=== PATIENT | male | born 1950 | race Caucasian/White ===

== ENCOUNTER 2017-09-18 20:54 | Emergency (ER) | payer MEDICARE, SELFPAY ==
[2017-09-18 20:54] VITALS: BP 122/58; PULSE 71; RESP 20; TEMP 36.9; O2SAT 92; BMI 20.7
--- NOTE | 2017-09-18 22:21 | ED.VISSUMM ---
- ER Visit Summary Date of Service: 09/18/17 Chief Complaint: Fall 3 days ago History of Present Illness: The patient is a 66 M mechanical fall 3 days ago. Tripped over his oxygen wire. He states he uses only as needed. History of COPD. States he hit the wall. No head injuries or loss of consciousness. He is on now Xarelto for history of atrial fibrillation. This was transitioned over a few days prior to his fall. Previous on Coumadin. Pain to his left back. No urinary symptoms. States the bruising to left arm. However full range of motion. Pain in his lower hip backside, however able to ambulate. Patient states family member here in the department, decided to check in to be evaluated. No distal paresthesias. No loss of bowel or bladder control. Physical Examination: General: Alert and oriented ?3, no acute distress HEENT: Normocephalic, atraumatic. Moist mucosa membranes Neck: supple, nontender. Cardiovascular: Regular rate and rhythm, no murmurs Respiratory: Normal breath sounds, symmetric, no distress Abdomen: Soft, nontender, nondistended Back: No midline tenderness, there is ecchymosis left flank CVA region, mild tender to palpation. Extremities: Nontender, no edema, pulses intact ?4. There is ecchymosis left elbow, however full range of motion. Able to stand and ambulate with no difficulties. Neuro: no focal neurological deficits. Test Results: WBC 11, hemoglobin 13.3. Creatinine 1.05. Urine 100 leukocytes, blood 10, 25-50 hyaline casts. Negative nitrites or white blood cells. CT abdomen pelvis IV contrast no trauma to organs. 5 cm mass left lobe of the liver. Emergency Department Course and Treatment: Patient presents 3 days after injury. He is on Xarelto. He has ecchymosis to the left flank. Discuss potential organ injury, workup initiated. Labs stable urine did note mild blood. CT scan negative for any trauma injuries. Incidental findings 5 cm mass left liver, discussed with patient and significant other findings that would need outpatient follow-up. Also findings of thickening around the bladder, he has no urine symptoms. He does have oxycodone at home for pain control. He is given dose in the ED. He is discharged with outpatient follow-up. Treatment Plan: [] Disposition: Discharge Impression: 1. Flank contusion 2. Liver mass 5 cm 3. Hematuria 4. Left arm contusion This note was generated with [employer] dictation software. It may contain incorrect words, spelling, and punctuation that were not noted in review of the chart prior to signing ED Disposition - Plan for ED Patient: Disposition: Home or Assisted Living Chief Complaint: Fall Diagnosis: Contusion, flank, Contusion of left arm, Hematuria, Liver mass, left lobe Instructions: ED Contusion Back, ED Hematuria Referrals: Humberto Ware MD [Primary Care Provider] - 1 Day Additional Instructions: 5 cm left liver mass. Will need follow-up by your doctor for outpatient workup. No intra-abdominal injury from her fall from CT scan.
[2017-09-18] MEDS: 0.9% Normal Saline 1,000 ML 150 ML IV (22:46)
[2017-09-18] MEDS: oxyCODONE 5 MG Tablet PO (22:47)
[2017-09-18 23:01] LABS: Absolute Lymphocyte Count 2.75 X10^3/ul (0.83-4.51); Absolute Neutrophil Count 6.7 X10^3/uL (2.0-7.7); Basophil# 0.08 X10^3/uL; Basophil% 0.7 % (0-1); Eosinophil# 0.63 X10^3/uL; Eosinophils% 5.7 % (0-5); Hematocrit 40.9 % (40-54); Hemoglobin 13.3 g/dl (13.0-16.5); Lymphocyte # 2.75 X10^3/ul (4.0); Lymphocyte % 24.7 % (19-41); Mean Corp Hgb Conc 32.5 g/gl (32-36); Mean Corpuscular Hgb 28.9 pg (27.0-32.0); Mean Corpuscular Volume 88.7 fL (80-94); Mean Platelet Vol. 9.2 fl (6.2-12.0); Monocyte# 0.94 X10^3/uL; Monocyte% 8.4 % (0-10); Neutrophil # 6.69 X10^3/uL (2.7-7.7); Neutrophil % 60.1 % (47-70); Platelet Count 118 K/mm3 (150-450); RBC Distribution Width CV 15.6 % (11.6-14.6); RBC Distribution Width SD 50.2 fl (35.1-43.9); Red Blood Count 4.61 M/mm3 (4.6-6.2); White Blood Count 11.1 K/mm3 (4.4-11.0)
[2017-09-18 23:02] LABS: POSITIVE COUNT NO; POSITIVE DIFFERENTIAL NO; POSITIVE MORPHOLOGY NO
[2017-09-18 23:04] LABS: Anion Gap 4 (5-15); BUN 12 mg/dL (7-18); BUN/Creat Ratio 11.4 RATIO (10-20); Calcium,Total 9.3 mg/dL (8.5-10.1); Chloride 106 mmol/L (98-107); Creatinine, Serum 1.05 mg/dL (0.70-1.30); EST Glomerular Filtration Rate 75 mL/min (>60); Est Glom Filt Rate - Afr Amer 90 mL/min (>60); Estimated Creatinine Clearance 61.32 ml/min; Glucose 83 mg/dL (74-106); Potassium 4.3 mmol/L (3.5-5.1); Sodium Level 140 mmol/L (136-145)
[2017-09-18 23:16] LABS: International Normalized Ratio 1.2; Partial Thromboplast Time 32.1 Seconds (24.1-36.2); Prothrombin Time (Protime)PT. 15.5 SECONDS (11.7-14.9)
[2017-09-19 00:45] LABS: Bacteria 0 SEEN /hpf (None Seen); Mucous, Urine 0 SEEN /hpf (<or=2+); Red Blood Cells-Urine 0 SEEN /hpf (0-5); Squamous Epithelial Cells - UA 0 SEEN /hpf (0-5)
[2017-09-19 00:47] LABS: Color, Urine Yellow (Yellow); Glucose, Dipstick Normal (Normal); Ketone-Dipstick Negative (Negative); Leukocyte Esterase-Dipstick 100 /ul (Negative); Nitrite-Dipstick Negative (Negative); Occult Blood-Urine 10 /ul (Negative); Protein-Dipstick 15 mg/dl (Negative); Urine Clarity Clear (Clear); Urine Urobilinogen 1 mg/dl (Normal)
[2017-09-19 00:48] LABS: Urine Bilirubin Dipstick 1 mg/dL (Negative)
[2017-09-19 00:53] VITALS: BP 115/71; PULSE 71; RESP 16; O2SAT 93
[2017-09-19 00:53] LABS: Hyaline Cast 25-50 SEEN /lpf (0-5); White Blood Cells 0-5 SEEN /hpf (0-5)
== END 2017-09-19 01:54 | disposition home or self-care (01) ==
PROVIDERS: Emergency Provider Emergency Medicine; Family Provider Family Medicine; PCP Family Medicine
DX: S30.1XXA Contusion of abdominal wall, initial encounter (principal); S40.022A Contusion of left upper arm, initial encounter; W18.09XA Striking against other object with subsequent fall, initial encounter; Y93.9 Activity, unspecified; Y92.89 Other specified places as the place of occurrence of the external cause; Y99.9 Unspecified external cause status; J44.9 Chronic obstructive pulmonary disease, unspecified; I48.91 Unspecified atrial fibrillation; Z79.01 Long term (current) use of anticoagulants; R16.0 Hepatomegaly, not elsewhere classified; R31.9 Hematuria, unspecified; E11.9 Type 2 diabetes mellitus without complications; I10 Essential (primary) hypertension; Z72.0 Tobacco use
CPT/HCPCS: 74177; 80048; 81001; 85025; 85610; 85730; 96360; 96361; 99285; J7030; Q9967

== ENCOUNTER 2017-12-01 12:21 | Emergency (ER) | payer MEDICARE, SELFPAY ==
[2017-12-01 12:23] VITALS: BP 125/67; PULSE 94; RESP 18; TEMP 36.7; O2SAT 95; BMI 21.8
--- NOTE | 2017-12-01 12:39 | CT_ITS ---
STUDY: CTA OF THE ABDOMINAL AORTA AND BILATERAL LOWER EXTREMITIES REASON FOR EXAM: Male, 67 years old. Chemotherapy device placed into the right groin. The patient now presents with pain and swelling of the right lower extremity. RADIATION DOSAGE (If Supplied By Facility): CTDIvol = ( 8.08 ) mGy, DLP = ( 1441.88 ) mGycm TECHNIQUE: Axial CT angiography multi-detector data acquisition was obtained from the to the following intravenous administration of 100mL ml of Isovue 370 contrast. Axial images and MIP images were reconstructed from the axial data set. Post-processing of the angiographic images was performed, with multiplanar reformation and 3D reconstruction. Individualized dose optimization techniques were used for this CT. TECHNICAL QUALITY: Good COMPARISON: None. Descriptors of Narrowing: None (0%) Mild (< 50%) Moderate (50-70%) Severe (70-90%) Subtotal/Total Occlusion (90-100%) Non-Evaluable (technically non-diagnostic FINDINGS: Diffuse fatty infiltration of the liver. There is a 4.5 cm x 2.5 cm hypodense nodule in the anterior aspect of the right lobe of the liver suggestive of metastatic disease. There is also evidence of an inhomogeneous 4.6 cm x 4.9 cm solid mass containing some gas in it in the left lobe of the liver. This may represent post embolic changes. Findings are in keeping with hepatic metastasis. There is a 2.1 cm x 2.7 cm hypodense rounded soft tissue mass with calcification along the left para-aortic region suggestive of a necrotic lymph node. Small right renal cyst. There is evidence of increase soft tissue density in the region of the right groin involving the subcutaneous tissue as well as the soft tissue planes surrounding the right common femoral artery and common femoral vein. There is evidence of contrast extravasation from the anterior aspect of the right common femoral artery. This is incomplete with the patient's history of recent arterial catheterization with continued leakage and post procedure hematoma. A small amount of air is seen within the urinary bladder most likely is related to prior catheterization. Prostatic calcification. Abdominal aorta: Atherosclerotic calcification. Mild degree of mural thrombus of the abdominal aorta. Celiac and superior mesenteric arteries: No demonstrated narrowing. Inferior mesenteric artery: No demonstrated narrowing. Right renal artery(arteries): No demonstrated narrowing. Left renal artery(arteries): No demonstrated narrowing. Right common iliac artery: No demonstrated narrowing. Right external iliac artery: No demonstrated narrowing. Right internal iliac artery: No demonstrated narrowing. Left common iliac artery: No demonstrated narrowing. Left external iliac artery: No demonstrated narrowing. Left internal iliac artery: No demonstrated narrowing. CT/CTA Abd w/Runoff W/WO Contrast IMPRESSION: Findings suggestive of extravasation of contrast from the right common femoral artery with a surrounding soft tissue density in comparison with the postcatheterization hematoma and there continued arterial leak. Electronically Signed: Nelson Fournier MD at 15:02 EDT Tel [phone], Service support ,
[2017-12-01] MEDS: 0.9% Normal Saline 1,000 ML 1000 ML IV (12:54)
[2017-12-01 13:06] LABS: Absolute Lymphocyte Count 1.21 X10^3/ul (0.83-4.51); Absolute Neutrophil Count 15.4 X10^3/uL (2.0-7.7); Basophil# 0.05 X10^3/uL; Basophil% 0.3 % (0-1); Differential Indicated SCAN CRITERIA MET; Eosinophil# 0.03 X10^3/uL; Eosinophils% 0.2 % (0-5); Hematocrit 39.5 % (40-54); Hemoglobin 12.9 g/dl (13.0-16.5); Lymphocyte # 1.21 X10^3/ul (4.0); Lymphocyte % 6.5 % (19-41); Mean Corp Hgb Conc 32.7 g/gl (32-36); Mean Corpuscular Hgb 29.1 pg (27.0-32.0); Mean Platelet Vol. 9.2 fl (6.2-12.0); Monocyte# 1.91 X10^3/uL; Monocyte% 10.3 % (0-10); Neutrophil # 15.38 X10^3/uL (2.7-7.7); Neutrophil % 82.4 % (47-70); POSITIVE COUNT NO; POSITIVE DIFFERENTIAL YES; POSITIVE MORPHOLOGY NO; Platelet Count 172 K/mm3 (150-450); RBC Distribution Width CV 13.2 % (11.6-14.6); RBC Distribution Width SD 42.5 fl (35.1-43.9); Red Blood Count 4.44 M/mm3 (4.6-6.2); White Blood Count 18.6 K/mm3 (4.4-11.0)
[2017-12-01 13:15] LABS: ALB/GLOB Ratio 0.7 RATIO (0.9-2.4); AST(SGOT) 317 U/L (15-37); Alanine Aminotransfer ALT/SGPT 541 U/L (16-61); Alkaline Phosphatase 156 U/L (45-117); Anion Gap 5 (5-15); BUN 16 mg/dL (7-18); BUN/Creat Ratio 19.8 RATIO (10-20); Calcium,Total 9.2 mg/dL (8.5-10.1); Chloride 96 mmol/L (98-107); Creatinine, Serum 0.81 mg/dL (0.70-1.30); EST Glomerular Filtration Rate 101 mL/min (>60); Est Glom Filt Rate - Afr Amer 122 mL/min (>60); Estimated Creatinine Clearance 82.88 ml/min; Globulin 4.3 g/dL (2.2-4.2); Glucose 126 mg/dL (74-106); Protein, Total 7.3 g/dL (6.4-8.2); Sodium Level 137 mmol/L (136-145)
[2017-12-01 13:27] LABS: Platelet Estimate ADEQUATE (ADEQ); Red Cell Morphology NORM C+C NORMAL (NORM C&C)
[2017-12-01 14:37] VITALS: BP 127/85; PULSE 85; RESP 16; O2SAT 95
[2017-12-01 14:54] VITALS: PULSE 85; RESP 18
[2017-12-01] MEDS: Ipratropium/Albuterol Sulfate 3 ML AMPUL.NEB INHALATION (14:55)
--- NOTE | 2017-12-01 16:01 | ED.VISSUMM ---
- ER Visit Summary Date of Service: 12/01/17 Chief Complaint: Right groin swelling History of Present Illness: The patient is a 67 M who presents with swelling in his right groin area that became worse today. Patient had a procedure done [address] a device on his right femoral artery to close a hole. Patient states the swelling has gotten progressively worse today. Patient denies any paresthesias or weakness. Patient denies any abdominal pain. Patient admits to some nausea and vomiting. Patient admits to subjective fever which she estimated at 100. Patient denies any discoloration of his lower leg. Physical Examination: Vital signs are stable. Patient is afebrile. Patient is in no acute distress. Oral mucosa is pink and moist. Neck is supple. Trachea is midline. There is no JVD noted. Heart was regular rate and rhythm. Lungs are clear and equal bilaterally. Abdomen is soft. There is some mild diffuse tenderness. Bowel sounds are normal. There is no rebound or guarding noted. There is a hematoma noted in the right inguinal area. Pedal pulses are equal bilaterally. Cranial nerves II through XII are intact. There are no focal motor or sensory deficits noted. The remaining physical exam is within normal limits. Test Results: CBC and comprehensive metabolic profile were obtained. BUN and creatinine were normal. CBC shows a leukocytosis of 18.9. Hemoglobin was stable at 12.9. Liver function tests were elevated (patient has a history of liver cancer). CTA of the abdomen and pelvis with runoffs showed extravasation of contrast into the soft tissue. Emergency Department Course and Treatment: Case was discussed Dr. Urias who is covering for Dr. Alatorre the vascular surgeon who placed the device. He recommended applying continuous manual pressure to the right inguinal area. He recommended transferring the patient to the emergency department at the [facility] the [facility] with continuous manual pressure in the right groin area. Patient understands and is agreeable with the plan. All questions were answered. Disposition: Transferred to [facility] Impression: Pseudoaneurysm right femoral artery This note was generated with [employer] dictation software. It may contain incorrect words, spelling, and punctuation that were not noted in review of the chart prior to signing ED Disposition - Plan for ED Patient: Disposition: [facility] - Main Chief Complaint: Male Pain/Injury Diagnosis: Pseudoaneurysm of right femoral artery Referrals: Humberto Ware MD [Primary Care Provider] -
--- NOTE | 2017-12-01 16:07 | ED.DCSUM_ITS ---
- ER Visit Summary Date of Service: 12/01/17 Chief Complaint: Right groin swelling History of Present Illness: The patient is a 67 M who presents with swelling in his right groin area that became worse today. Patient had a procedure done [address] a device on his right femoral artery to close a hole. Patient states the swelling has gotten progressively worse today. Patient denies any paresthesias or weakness. Patient denies any abdominal pain. Patient admits to some nausea and vomiting. Patient admits to subjective fever which she estimated at 100. Patient denies any discoloration of his lower leg. Physical Examination: Vital signs are stable. Patient is afebrile. Patient is in no acute distress. Oral mucosa is pink and moist. Neck is supple. Trachea is midline. There is no JVD noted. Heart was regular rate and rhythm. Lungs are clear and equal bilaterally. Abdomen is soft. There is some mild diffuse tenderness. Bowel sounds are normal. There is no rebound or guarding noted. There is a hematoma noted in the right inguinal area. Pedal pulses are equal bilaterally. Cranial nerves II through XII are intact. There are no focal motor or sensory deficits noted. The remaining physical exam is within normal limits. Test Results: CBC and comprehensive metabolic profile were obtained. BUN and creatinine were normal. CBC shows a leukocytosis of 18.9. Hemoglobin was stable at 12.9. Liver function tests were elevated (patient has a history of liver cancer). CTA of the abdomen and pelvis with runoffs showed extravasation of contrast into the soft tissue. Emergency Department Course and Treatment: Case was discussed Dr. Urias who is covering for Dr. Alatorre the vascular surgeon who placed the device. He recommended applying continuous manual pressure to the right inguinal area. He recommended transferring the patient to the emergency department at the [facility] of the [place] with continuous manual pressure in the right groin area. Patient understands and is agreeable with the plan. All questions were answered. Disposition: Transferred to [facility] Impression: Pseudoaneurysm right femoral artery This note was generated with [employer] dictation software. It may contain incorrect words, spelling, and punctuation that were not noted in review of the chart prior to signing ED Disposition - Plan for ED Patient: Disposition: [facility] - Main Chief Complaint: Male Pain/Injury Diagnosis: Pseudoaneurysm of right femoral artery Referrals: Humberto Ware MD [Primary Care Provider] -
--- NOTE | 2017-12-01 16:22 | NURSING ---
FAXED FACESHEET TO [facility]. GOING ER TO ER
[2017-12-01 16:23] VITALS: BP 112/65; PULSE 74; RESP 16; O2SAT 95
--- NOTE | 2017-12-01 16:38 | NURSING ---
[facility] FOR TRANSPORT
[2017-12-01 17:18] VITALS: BP 112/65; PULSE 74; RESP 16; O2SAT 95
[2017-12-01] MEDS: Morphine 4 MG/ML Syringe IV (17:23)
[2017-12-04 15:15] LABS: Pathologist Review Reviewed
== END 2017-12-01 17:41 | disposition short-term general hospital (02) ==
PROVIDERS: Emergency Provider Emergency Medicine; Family Provider Family Medicine; PCP Family Medicine
DX: I72.4 Aneurysm of artery of lower extremity (principal); E11.9 Type 2 diabetes mellitus without complications; I10 Essential (primary) hypertension; J44.9 Chronic obstructive pulmonary disease, unspecified; Z85.05 Personal history of malignant neoplasm of liver; I48.91 Unspecified atrial fibrillation
CPT/HCPCS: 75635; 80053; 85025; 94640; 96361; 96374; 99285; Q9967

== ENCOUNTER 2018-05-22 10:28 | Inpatient (IN) | payer MEDICARE, SELFPAY ==
[2018-05-22] VITALS (36 sets, daily range): BP systolic 70–126; BP diastolic 40–73; PULSE 70–108; RESP 4–34; TEMP 34.5–37.9; O2SAT 88–100; BMI 21.0; BMI 22.1; BMI 21.1
--- NOTE | 2018-05-22 10:36 | RAD_ITS ---
STUDY: X-RAY CHEST REASON FOR EXAM: Male, 67 years old. Cough. TECHNIQUE: Single AP portable view of the chest. COMPARISON: Comparison is made with prior study dated September 01, 2015. FINDINGS: The endotracheal tube is in situ. The tip is at 5.7 cm proximal to the foreign. An orogastric tube is seen with the tip in the distal portion of the body of the stomach. Is evidence of consolidation in the right lower lobe. Patchy consolidation in the left lower lobe with blunting of both costophrenic angles. Normal size heart. Normal mediastinum and carla. Normal visualized pulmonary arteries. There is atherosclerotic calcification of the aortic arch with tortuosity. There are diffuse degenerative changes of the visualized thoracic spine. Normal visualized ribs, clavicles, and shoulders. There is no demonstrated abnormality of the visualized soft tissue structures of the upper abdomen. RAD/Chest 1 View (Portable) IMPRESSION: Right lower lobe consolidation. Infiltration in the left lower lobe with blunting of both costophrenic angles. Electronically Signed: Nelson Fournier, at 12:45 EDT , Service support ,
--- NOTE | 2018-05-22 10:36 | EKG12_ITS ---
Test Reason : UNRESPONSIVE Blood Pressure : / mmHG Vent. Rate : 087 BPM Atrial Rate : 087 BPM P-R Int : 176 ms QRS Dur : 094 ms QT Int : 352 ms P-R-T Axes : 080 048 079 degrees QTc Int : 423 ms Normal sinus rhythm with sinus arrhythmia Incomplete right bundle branch block Borderline ECG Confirmed by JOSELINE STEELE, MARTA ([id number]), assistant film editor NOEMÍ MARTINEZ ([id number]) on 05/24/2018 9:12:26 AM Referred By: Alisia Mcghee Confirmed By:MARTA TREVIZO MD
--- NOTE | 2018-05-22 10:53 | CT_ITS ---
STUDY: CT BRAIN WITHOUT CONTRAST REASON FOR EXAM: Male, 67 years old. Unresponsive. RADIATION DOSAGE (If Supplied By Facility): CTDIvol = ( 60.81 ) mGy, DLP = ( 1112.69 ) mGycm TECHNIQUE: Transaxial CT imaging of the brain was performed without administration of intravenous contrast material. Individualized dose optimization techniques were used for this CT. COMPARISON: No relevant priors. FINDINGS: Normal soft tissue structures. Normal calvarium. There is mild cerebral atrophy with widening of the extra-axial spaces and ventricular dilatation. There are areas of decreased attenuation within the white matter tracts of the supratentorial brain, consistent with microvascular disease changes. Normal basal ganglia and thalami. Normal brainstem. Normal cerebellum. There is no intracranial hemorrhage. There are no findings of an acute ischemic infarction. Atherosclerotic calcification of the cavernous portions of the internal carotid artery bilaterally. Mucosal thickening of the right maxillary sinus and ethmoid sinuses. CT/Brain/Head without Contrast IMPRESSION: Chronic involutional changes of the brain. Electronically Signed: Nelson Fournier, at 13:00 EDT , Service support ,
[2018-05-22 11:02] LABS: Absolute Lymphocyte Count 0.68 X10^3/ul (0.83-4.51); Absolute Neutrophil Count 22.8 X10^3/uL (2.0-7.7); Basophil# 0.01 X10^3/uL; Hematocrit 46.9 % (40-54); Hemoglobin 14.1 g/dl (13.0-16.5); Lymphocyte # 0.68 X10^3/ul (4.0); Lymphocyte % 2.7 % (19-41); Mean Corp Hgb Conc 30.1 g/gl (32-36); Mean Corpuscular Hgb 25.5 pg (27.0-32.0); Mean Corpuscular Volume 84.7 fL (80-94); Mean Platelet Vol. 8.5 fl (6.2-12.0); Monocyte# 1.25 X10^3/uL; Neutrophil # 22.77 X10^3/uL (2.7-7.7); Neutrophil % 91.8 % (47-70); Platelet Count 320 K/mm3 (150-450); RBC Distribution Width CV 15.6 % (11.6-14.6); RBC Distribution Width SD 48.3 fl (35.1-43.9); Red Blood Count 5.54 M/mm3 (4.6-6.2); White Blood Count 24.8 K/mm3 (4.4-11.0)
[2018-05-22 11:05] LABS: Differential Indicated SCAN CRITERIA MET; POSITIVE COUNT NO; POSITIVE DIFFERENTIAL YES; POSITIVE MORPHOLOGY NO
[2018-05-22 11:06] LABS: Allen Test POS; Base Excess 10 mmol/L (-2 to +2); Bicarbonate 38.2 mmol/L (22-26); Blood Gas Specimen Type ART; FI02 100; Mode A-C; O2 Delivery Device Vent; PEEP 5; PO2 407 mmHG (75-100); RR 16; SITE R Radial; SO2 100 % (95-99); Time Given 1055; Total Carbon Dioxide 41 mmol/L; Vt 450; pCO2 101.4 mmHg (35-45); pH 7.18 (7.35-7.45)
[2018-05-22 11:08] LABS: International Normalized Ratio 2.3
[2018-05-22 11:09] LABS: Partial Thromboplast Time 36.1 Seconds (24.1-36.2)
--- NOTE | 2018-05-22 11:10 | NURSING ---
CHEMISTRIES HEMOLIZED
--- NOTE | 2018-05-22 11:22 | ED.VISSUMM ---
- ER Visit Summary Date of Service: 05/22/18 Chief Complaint: Unresponsive History of Present Illness: The patient is a 67 M who was found unresponsive by his today. She states that she could not get him to take a breath. He would intermittently breathe and occasionally flail. EMS notes the same. They state that she ate he was 80% on room air at home. He has a history of liver cancer was treated with patient seeds in the fall of last year. He follows with [facility] oncology at the [facility]. He also has history of COPD diabetes hypertension and atrial fibrillation. tells me that yesterday the patient was doing arm weights and was noting some chest discomfort but thought it was related to doing the weights. He has chronic rhinorrhea. He has a chronic cough but did not seem different yesterday. Physical Examination: 126/64 heart rate of 86 respirations are 4 pulse ox is 100% on nonrebreather temperature 96.4 Gen: Well-nourished well-developed Head: Normocephalic atraumatic Eyes: Pupils are 4 mm bilaterally minimally responsive ENT: TMs clear no rhinorrhea dry mucous membranes Neck: Supple no lymphadenopathy no JVD nontender CVS: Regular rate rhythm no murmurs normal S1-S2 Respiratory: Rhonchorous lung sounds but long periods of apnea Abdomen: Soft nontender nondistended normal bowel sounds no masses Back: Nontender Extremity: Nontender no edema Skin: Normal color no rash Neuro: The patient is unresponsive. There is no corneal reflex. The patient will occasionally moan and attempt to sit up. Psych: Unable Test Results: Chest x-ray shows large infiltrate involving most lung garg on the right. Endotracheal tube is in adequate position. Patient's pH at 7.1 with PCO2 of 103. White count elevated 24.8. Ammonia level 45. Emergency Department Course and Treatment: Patient was brought to resuscitation room. Family arrived and I spoke with them and discussed intubation. As he is apneic and otherwise unresponsive they agreed to proceed with intubation. Patient received etomidate and succinylcholine. A 8-0 endotracheal tube was placed on the first attempt without difficulty. It was secured at 24 cm with equal breath sounds bilaterally and good color change. OG was placed. Singer catheter placed. Patient was placed on a propofol drip. Patient noted to be hypothermic on temperature sensitive Singer. He was given warm blankets and placed on bear hugger. Patient has received IV fluids greater than 3 L. Patient had not experienced any hypotension until propofol was started. We have currently backed off the propofol significantly and starting to see that his blood pressures are running up. Patient has a history of MRSA and with the possibility of aspiration we administered vancomycin and Zosyn for antibiotic selection. CT brain negative. Impression: 1. Acute respiratory failure 2. Pneumonia 3. Intubation by physician 4. Hypothermia 5. Hypercarbia/respiratory acidosis 6. Septic shock 7. Metabolic encephalopathy 8. Critical care time 35 minutes This note was generated with [employer] dictation software. It may contain incorrect words, spelling, and punctuation that were not noted in review of the chart prior to signing ED Disposition - Plan for ED Patient: Referrals: Humberto Ware MD [Primary Care Provider] -
[2018-05-22 11:29] LABS: Bacteria 0 SEEN /hpf (None Seen); Mucous, Urine 0 SEEN /hpf (<or=2+); Squamous Epithelial Cells - UA 0 SEEN /hpf (0-5)
[2018-05-22 11:31] LABS: Color, Urine Yellow (Yellow); Glucose, Dipstick Normal (Normal); Ketone-Dipstick 5 mg/dl (Negative); Leukocyte Esterase-Dipstick 25 /ul (Negative); Nitrite-Dipstick Negative (Negative); Occult Blood-Urine 50 /ul (Negative); Protein-Dipstick 30 mg/dl (Negative); Specific Gravity, Urine 1.025 (1.002-1.030); Urine Clarity Sl. Cloudy (Clear); Urine Urobilinogen 12 mg/dl (Normal)
[2018-05-22 11:39] LABS: Urine Bilirubin Dipstick 3 mg/dL (Negative)
[2018-05-22 11:42] LABS: Hyaline Cast 5-10 SEEN /lpf (0-5)
[2018-05-22 11:43] LABS: Red Blood Cells-Urine 0-5 SEEN /hpf (0-5); White Blood Cells 0-5 SEEN /hpf (0-5)
[2018-05-22 11:54] LABS: ALB/GLOB Ratio 0.5 RATIO (0.9-2.4); AST(SGOT) 64 U/L (15-37); Alanine Aminotransfer ALT/SGPT 41 U/L (16-61); Albumin, Serum 2.2 g/dL (3.2-5.0); Alkaline Phosphatase 149 U/L (45-117); Anion Gap 0 (5-15); BUN 18 mg/dL (7-18); BUN/Creat Ratio 15.1 RATIO (10-20); Calcium,Total 7.8 mg/dL (8.5-10.1); Chloride 98 mmol/L (98-107); Creatinine, Serum 1.19 mg/dL (0.70-1.30); EST Glomerular Filtration Rate 65 mL/min (>60); Est Glom Filt Rate - Afr Amer 78 mL/min (>60); Estimated Creatinine Clearance 52.86 ml/min; Globulin 4.4 g/dL (2.2-4.2); Glucose 163 mg/dL (74-106); Potassium 6.1 mmol/L (3.5-5.1); Protein, Total 6.6 g/dL (6.4-8.2); Sodium Level 134 mmol/L (136-145)
[2018-05-22] MEDS: Propofol 10MG/Ml 1,000 MG/100 ML Bottle 3.774 MG CONT INF (12:00)
[2018-05-22] MEDS: Succinylcholine Chloride 200 MG/10 ML Vial 75 MG IV (12:00)
[2018-05-22] MEDS: 0.9% Normal Saline 1,000 ML 150 ML IV (12:00)
[2018-05-22] MEDS: 0.9% Normal Saline 1,000 ML 999 ML IV ×3 (12:31→15:04)
--- NOTE | 2018-05-22 13:17 | NURSING ---
DR TRAVIS FOR DR BORREGO
--- NOTE | 2018-05-22 13:30 | HP.PCM_ITS ---
Problem List (1) Septic shock Status: Acute (2) Nicotine dependence Status: Acute Qualifiers: Nicotine product type: cigarettes Substance use status: uncomplicated Qualified Code(s): F17.210 - Nicotine dependence, cigarettes, uncomplicated (3) Metastatic adenocarcinoma to liver Status: Acute (4) Atrial fibrillation Status: Acute (5) Acute respiratory failure with hypoxia Status: Acute (6) Community acquired pneumonia Status: Acute Qualifiers: Laterality: left Lung location: lower lobe of lung Qualified Code(s): J18.1 - Lobar pneumonia, unspecified organism (7) Type II diabetes mellitus Status: Chronic Qualifiers: Diabetes mellitus intermediate accountant insulin use: without intermediate accountant use Diabetes mellitus complication status: with unspecified complications Qualified Code(s): E11.8 - Type 2 diabetes mellitus with unspecified complications (8) Hypertension Status: Chronic Qualifiers: Hypertension type: essential hypertension Qualified Code(s): I10 - Essential (primary) hypertension (9) COPD (chronic obstructive pulmonary disease) Status: Chronic Qualifiers: COPD type: COPD with acute exacerbation Qualified Code(s): J44.1 - Chronic obstructive pulmonary disease with (acute) exacerbation Comment: Reported FEV1 40% History of Present Illness Date of Admission: 05/22/18 Chief Complaint: Unresponsiveness - on the day of admission The patient is a 67 year old M with past medical history of metastatic liver cancer status post chemo embolism in November and December 2017, hypertension, type II DM, COPD on 3.5 L of oxygen, nicotine dependence who was found to be unresponsive on the day of admission. History was obtained from the as the patient was intubated in the emergency department. Patient lives at home with her and apparently was feeling unwell with some chest pain ongoing since 1 day before admission. He is in palliative care and gets home physical therapy. He was said to be working with his weight lifting equipment the day before admission. There was no fever or chills or shortness of breath prior to being found unresponsive. On the day of admission, patient was found to be unresponsive, his oxygen was off, his put his oxygen on and check his SPO2 and was found to be 50%. She could not wake him up and she called the EMS. Per EMS report, patient was found to be unresponsive, responds minimally to painful stimuli. He was saturating 88% on room air. His blood pressure on arrival was 126/64, heart rate was 86, temperature was 96.4F, respiratory rate was 4, he was saturating 100% on the nonrebreather. Admitting blood work showed WBC count of 24.8, hemoglobin 14.1, platelet 320, INR 2.3, APTT 36.1. His BMP shows sodium of 134, potassium 6.1, chloride 98, bicarbonate 36, BUN 18, creatinine 1.19, lactic acid was 2.0, AST was 64, ALT 41, ALP 149, ammonia 45, troponin was 0.015, UA was unremarkable Admitting chest x-ray showed right lower lobe consolidation, left lower lobe infiltration. CT scan of the brain showed chronic involutional changes of the brain Past Medical History Past Medical History (Chronic Problems): Chronic Problems Type II diabetes mellitus (Chronic) Hypertension (Chronic) COPD (chronic obstructive pulmonary disease) (Chronic) Reported FEV1 40% Allergies tramadol Allergy (Verified 05/22/18 12:50) Rash Home Medications: Ambulatory Orders Medication Instructions Recorded RX: Albuterol IH (ProAir) [Proair 2 puff INHALATION Q4H PRN PRN 08/31/15 Hfa] RX: Ipratropium/Albuterol Sulfate 3 ml INHALATION Q6HWA.RT 08/31/15 [Duoneb] RX: Oxycodone [Oxyir] 10 mg PO Q6H PRN PRN 08/31/15 RX: Diltiazem CD [Cardizem CD] 120 mg PO DAILY #30 capsule 09/04/15 RX: Glimepiride [Amaryl] 2 mg PO DAILY #30 tablet 09/04/15 Losartan Potassium 25 mg PO DAILY 12/01/17 Morphine [Morphine IR] 30 mg PO BID 12/01/17 RX: Furosemide [Lasix] 20 mg PO DAILY PRN PRN 12/01/17 RX: Metoprolol Tartrate [Lopressor 25 mg PO BID 12/01/17 (beta elen)] Rivaroxaban [Xarelto] 20 mg PO DAILY 12/01/17 Guaifenesin [Mucinex] 600 mg PO BID 05/22/18 Mirtazapine 30 mg PO QHS 05/22/18 Surgical History: - - s/p chemoembolisation Psychiatric History: No pertinent psych hx Lives: Spouse/ Significant Other Smoking Status: Current every day smoker Tobacco Use: Cigarettes Alcohol: None Drugs: None - *Family History Maternal History Items: No pertinent history Paternal History Items: No pertinent history Review of Systems Unable to obtain accurate/complete ROS d/t: Unable to obtain as patient is intubated VTE Information - Inpt Only VTE Present on Admission: No VTE Pharm Prophylaxis ordered?: Yes Patient Problems: Active and Suspected Problems Septic shock (Acute) Nicotine dependence (Acute) Metastatic adenocarcinoma to liver (Acute) - Physical Exam General: - - Intubated, on mechanical ventilator, sedated HEENT: Atraumatic, Normocephalic Oral: Dry Mucosa Neck: Supple Lungs: Diminished - anteriorly Cardiovascular: Regular rate, Regular Rhythm, Normal S1, Normal S2, No murmurs Abdomen: Bowel Sounds Present, Soft, Non Tender, Non-Distended, No Hepato- splenomegaly Extremities: No edema Skin: - - Scattered petechiae on the lower extremities Musculoskeletal: No Tenderness to Palpation of Joints or Extremities Lymphatic: No Cervical, Supraclavicular, or Inguinal Adenopathy Psych/Mental Status: Normal Affect, Appropriate Vital Signs Temp Pulse Resp BP Pulse Ox 94.1 F L 73 20 H 80/50 L 99 05/22/18 13:20 05/22/18 13:20 05/22/18 13:20 05/22/18 13:20 05/22/18 13:20 Oxygen Delivery Method Mechanical Ventilator Weight: 62.9 kg Body Mass Index (BMI) 21.0 Laboratory Tests Past 24 Hrs 05/22/18 05/22/18 05/22/18 10:35 10:35 10:35 WBC 24.8 H RBC 5.54 Hgb 14.1 Hct 46.9 MCV 84.7 MCH 25.5 L MCHC 30.1 L RDW 15.6 H RDW Differential 48.3 H Plt Count 320 MPV 8.5 Immature Gran % (Auto) 0.500 Neut % (Auto) 91.8 H Lymph % (Auto) 2.7 L [place] % (Auto) 5.0 Eos % (Auto) 0.0 Baso % (Auto) 0.0 Absolute Neuts (auto) 22.8 H Absolute Lymphs (auto) 0.68 L Total Counted Not Reportable Differential Comment COMMENT PT 25.0 H INR 2.3 APTT 36.1 Specimen Type Sample Site pH Bicarbonate Actual POC Total CO2 Base Excess O2 Saturation O2 % ABG pCO2 ABG pO2 Silver Test Respiration Rate O2 Delivery Device Vent Mode Tidal Volume POC PEEP Blood Gas Notified Whom Blood Gas Notified Time Sodium Cancelled Potassium Cancelled Chloride Cancelled Carbon Dioxide Cancelled Anion Gap Cancelled BUN Cancelled Creatinine Cancelled Estim Creat Clear Calc Cancelled Est GFR (MDRD) Af Amer Cancelled Est GFR (MDRD) Non-Af Cancelled BUN/Creatinine Ratio Cancelled Glucose Cancelled Lactic Acid Calcium Cancelled Total Bilirubin Cancelled AST Cancelled ALT Cancelled Alkaline Phosphatase Cancelled Ammonia Troponin I Cancelled Total Protein Cancelled Albumin Cancelled Globulin Cancelled Albumin/Globulin Ratio Cancelled Urine Color Urine Clarity Urine pH Ur Specific [place] Urine Protein Urine Glucose (UA) Urine Ketones Urine Occult Blood Urine Nitrite Urine Bilirubin Urine Urobilinogen Ur Leukocyte Esterase Urine RBC Urine WBC Ur Squamous Epith Cells Urine Bacteria Hyaline Casts Urine Mucus 05/22/18 05/22/18 05/22/18 11:02 11:10 11:10 WBC RBC Hgb Hct MCV MCH MCHC RDW RDW Differential Plt Count MPV Immature Gran % (Auto) Neut % (Auto) Lymph % (Auto) [place] % (Auto) Eos % (Auto) Baso % (Auto) Absolute Neuts (auto) Absolute Lymphs (auto) Total Counted Differential Comment PT INR APTT Specimen Type ART Sample Site R Radial pH 7.18 L* Bicarbonate Actual 38.2 H POC Total CO2 41 Base Excess 10 H O2 Saturation 100 H O2 % 100 ABG pCO2 101.4 H* ABG pO2 407 H* Silver Test POS Respiration Rate 16 O2 Delivery Device Vent Vent Mode A-C Tidal Volume 450 POC PEEP 5 Blood Gas Notified Whom ED Blood Gas Notified Time 1055 Sodium Potassium Chloride Carbon Dioxide Anion Gap BUN Creatinine Estim Creat Clear Calc Est GFR (MDRD) Af Amer Est GFR (MDRD) Non-Af BUN/Creatinine Ratio Glucose Lactic Acid 2.0 Calcium Total Bilirubin AST ALT Alkaline Phosphatase Ammonia 45.0 H Troponin I Total Protein Albumin Globulin Albumin/Globulin Ratio Urine Color Urine Clarity Urine pH Ur Specific [place] Urine Protein Urine Glucose (UA) Urine Ketones Urine Occult Blood Urine Nitrite Urine Bilirubin Urine Urobilinogen Ur Leukocyte Esterase Urine RBC Urine WBC Ur Squamous Epith Cells Urine Bacteria Hyaline Casts Urine Mucus 05/22/18 05/22/18 11:20 11:20 WBC RBC Hgb Hct MCV MCH MCHC RDW RDW Differential Plt Count MPV Immature Gran % (Auto) Neut % (Auto) Lymph % (Auto) [place] % (Auto) Eos % (Auto) Baso % (Auto) Absolute Neuts (auto) Absolute Lymphs (auto) Total Counted Differential Comment PT INR APTT Specimen Type Sample Site pH Bicarbonate Actual POC Total CO2 Base Excess O2 Saturation O2 % ABG pCO2 ABG pO2 Silver Test Respiration Rate O2 Delivery Device Vent Mode Tidal Volume POC PEEP Blood Gas Notified Whom Blood Gas Notified Time Sodium 134 L Potassium 6.1 H* Chloride 98 Carbon Dioxide 36.0 H Anion Gap 0 L BUN 18 Creatinine 1.19 Estim Creat Clear Calc 52.86 Est GFR (MDRD) Af Amer 78 Est GFR (MDRD) Non-Af 65 BUN/Creatinine Ratio 15.1 Glucose 163 H Lactic Acid Calcium 7.8 L Total Bilirubin 1.00 AST 64 H ALT 41 Alkaline Phosphatase 149 H Ammonia Troponin I < 0.015 Total Protein 6.6 Albumin 2.2 L Globulin 4.4 H Albumin/Globulin Ratio 0.5 L Urine Color Yellow Urine Clarity Sl. Cloudy Urine pH 5.0 Ur Specific [place] 1.025 Urine Protein 30 H Urine Glucose (UA) Normal Urine Ketones 5 H Urine Occult Blood 50 H Urine Nitrite Negative Urine Bilirubin 3 H Urine Urobilinogen 12 H Ur Leukocyte Esterase 25 H Urine RBC 0-5 SEEN Urine WBC 0-5 SEEN Ur Squamous Epith Cells 0 SEEN Urine Bacteria 0 SEEN Hyaline Casts 5-10 SEEN Urine Mucus 0 SEEN Assessment/Plan All Active Problems Septic shock (Acute) Nicotine dependence (Acute) Metastatic adenocarcinoma to liver (Acute) SVT (supraventricular tachycardia) (Acute) Atrial fibrillation (Acute) Acute respiratory failure with hypoxia (Acute) Community acquired pneumonia (Acute) 67 year old M with past medical history of metastatic liver cancer status post chemo embolism in November and December 2017, hypertension, type II DM, COPD on 3.5 L of oxygen, nicotine dependence who was found to be unresponsive on the day of admission. 1. Acute hypoxic respiratory failure, secondary to severe community-acquired pn eumonia, possible COPD exacerbation, Does post intubation, mechanical ventilator Plan: Admit to ICU, risk management manager controlled, continue on mechanical ventilator, breathing treatments, antibiotics, further recommendations per risk management manager 2. Acute metabolic encephalopathy secondary to #1, medication side-effects, possible CO2 narcosis 3. Community-acquired pneumonia, severe, present in both left and right lower lung zones, likely due to mixed organisms both gram-positive and gram-negative, Started on IV vancomycin and Zosyn, continue the same 4. Hypotension, possible septic shock vs medication side-effect, patient was started on propofol, switched to fentanyl Started on antibiotics, will monitor vitals closely 5. Hyperkalemia, likely secondary to hemolysis, will repeat blood work and labs in am 6. Metastatic liver cancer, was following with oncologist in the [facility], no seen oncology in a while because oncologist retired, patient is due for MRI of the liver, this will need to be done in the outpatient when patient recovers hopefully 7. Nicotine dependence, on replacement 8. Elevated ammonia, history of metastatic liver cancer, marginally elevated liver enzymes, will start patient on lactulose, repeat ammonia level 9. COPD/bronchiectasis, possible COPD exacerbation, started on IV Solu-Medrol, will continue with breathing treatments and IV steroids 10. Elevated INR secondary to use of Xarelto and hepatic dysfunction, will repeat in am 12. DVT PPx- INR is therapeutic 13. Code status- Full code I discussed in full detail with the who is his power of real estate associate attorney for healthcare. Clarified that patient is full code. Patient was in palliative care. His states that she would want everything to be done for him. He is currently intubated. Time spent discussing goals of care was 18 minutes. Code Visit Inpatient E&M: 91240 Init Hosp L3 Procedures: 60580 Advncd Care Plan 30 Min
--- NOTE | 2018-05-22 13:55 | NURSING ---
ICU 1
--- NOTE | 2018-05-22 14:00 | CASEMGMT ---
RN CM Assessment Introduced role of RN CM to patient Trinity, patient sister who lives close to patient, and patient Dtr Eloina at bedside.? Patient is currently intubated and unable?to participate in RN CM Assessment. ?Information obtained from . Care providers, pharmacy, and demographics verified. Presentation: Unresponsive for at home. O2 sat low 80's ra at home. H/o COPD on home O2 prn, +Smoker, Liver Cancer- has had Chemo Beads inserted December 02, 2017 and December 21 was the last one, developed PE after Oct Chemo Beads. Is on Palliative Care with [facility], Wants Palliative Care closer to here. Denies ETOH or Illegal Drug Use. Admit Dx: Respiratory Failure and Septic Shock Re-Admit: No Barriers/Issues: Would like a Palliative Doctor closer to Home. Was supposed to have MRI done in April but it was canceled and rescheduled- which was canceled again, Oncologist retired in January. PCP: Humberto Ware Specialists: Pulm- Dr Pierce, Onc- Dr Alatorre, Palliative- Dr Cornejo Preferred Pharmacy: [facility] [place] Insurance: [facility] A&B Rx Benefit:?Yes with Zebulon ?LNOK: Trinity Grace LW/HPOA: Per Trinity- she is the HPOA Living Arrangements:? Lives with Paolo Petersen, Dtr Eloina and 2 grandchildren in a 2 story home, 3 steps to enter. Patients stays on the ground level of the home. ADL?s: Requires assistance with all ADL's, ambulates independently and uses a walker as needed. Transportation: Patient Drives, Paolo Jose on DC DME: Home O2- 3.5L prn, Nebulizer, Walker, Rollator, Shower Chair, Glucometer HHC: Past after Chemo- cannot recall Agency. States if HH needed would prefer one closer to home. SNF: None, Per wants patient home so she can care for him. Goal: Home with assistance of family if needed, states open to HH if needed. DC PLAN: Home with possible HH. ARLEN Hylton
--- NOTE | 2018-05-22 14:07 | ED.RN ---
report to [facility] rn. pt prepared for transport
[2018-05-22] MEDS: fentaNYL drip 100 ML 2.5 MCG CONT INF (15:00)
[2018-05-22] MEDS: Ipratropium/Albuterol Sulfate 3 ML AMPUL.NEB INHALATION ×2 (15:00→18:39)
--- NOTE | 2018-05-22 15:01 | PCM.CON.CC ---
Problem List (1) Septic shock Status: Acute (2) Metastatic adenocarcinoma to liver Status: Acute (3) SVT (supraventricular tachycardia) Status: Acute (4) Acute respiratory failure with hypoxia Status: Acute (5) Type II diabetes mellitus Status: Chronic Qualifiers: Diabetes mellitus legal intern insulin use: without legal intern use Diabetes mellitus complication status: with unspecified complications Qualified Code(s): E11.8 - Type 2 diabetes mellitus with unspecified complications (6) Hypertension Status: Chronic Qualifiers: Hypertension type: essential hypertension Qualified Code(s): I10 - Essential (primary) hypertension (7) COPD (chronic obstructive pulmonary disease) Status: Chronic Qualifiers: COPD type: COPD with acute exacerbation Qualified Code(s): J44.1 - Chronic obstructive pulmonary disease with (acute) exacerbation Comment: Reported FEV1 40% Reason for Consult Date of Consultation: 05/22/18 Reason for Consultation: Respiratory failure History of Present Illness: The patient is a 67 year old M who presented to [facility] on 05/22/2018 secondary to being found unresponsive. Patient reportedly was breathing only intermittently and then went occasionally flail his arms. 911 was called and EMS a documented the same. Patient reportedly was saturating 80% on room air at home. Patient does have a history of hepatic cancer treated with radiation seeds in the fall of last year. Patient does follow with [facility] oncology at [facility]. Patient reportedly was doing arm weights and had some chest discomfort reported yesterday, but thought this was related to his workup. Patient does have chronic rhinorrhea and a cough, but this reportedly was not different from baseline. On presentation to the emergency room, patient was noted to be agonal and respirations in 100% on nonrebreather. CODE STATUS was verified and the patient received etomidate and succinylcholine for intubation. Shortly after intubation, copious secretions were reported from the endotracheal tube. Patient was placed on a propofol drip and was noted to become hypotensive. Patient has received 3 L of IV fluids downstairs, but blood pressure did respond to decreasing propofol. Patient reportedly does have a history of MRSA in the past, so patient was placed on vancomycin and Zosyn. On arrival to the intensive care unit, patient's blood pressure was noted is marginal. Patient was not tachycardic and was tolerating ventilator well. Patient was unable to provide any review of systems or additional history. Past Medical History Past Medical History (Chronic Problems): Chronic Problems Type II diabetes mellitus (Chronic) Hypertension (Chronic) COPD (chronic obstructive pulmonary disease) (Chronic) Reported FEV1 40% Allergies tramadol Allergy (Verified 05/22/18 12:50) Rash Home Medications: Ambulatory Orders Medication Instructions Recorded Albuterol IH (ProAir) [Proair Hfa] 2 puff INHALATION Q4H PRN PRN 08/31/15 Ipratropium/Albuterol Sulfate 3 ml INHALATION Q6HWA.RT 08/31/15 [Duoneb] Oxycodone [Oxyir] 10 mg PO Q6H PRN PRN 08/31/15 Amox/Clavulanate Tablet [Augmentin 500 mg PO BIDCM #11 tablet 09/04/15 Tablet] Diltiazem CD [Cardizem CD] 120 mg PO DAILY #30 capsule 09/04/15 Glimepiride [Amaryl] 2 mg PO DAILY #30 tablet 09/04/15 Guaifenesin [Mucinex] 1,200 mg PO BID #10 tablet 09/04/15 Nebulizer Accessories [Aeroneb Go] 1 each MC PRN PRN #1 each 09/04/15 Nebulizer Accessories [Innospire 1 each MC PRN PRN #1 each 09/04/15 Replacement Filter] Nebulizer Accessories [Pillow Mask] 1 each MC PRN PRN #1 each 09/04/15 Nebulizer [Aeroneb Go Nebulizer] 1 each MC PRN PRN #1 each 09/04/15 Nicotine [Nicoderm Cq] 21 mg TRANSDERM. DAILY 30 Days 09/04/15 patch Duloxetine HCl 60 mg PO DAILY 12/01/17 Furosemide [Lasix] 20 mg PO DAILY 12/01/17 Gabapentin [Neurontin] 100 mg PO TID 12/01/17 Losartan Potassium 25 mg PO DAILY 12/01/17 Metoprolol Tartrate [Lopressor 25 mg PO BID 12/01/17 (beta elen)] Morphine [Morphine IR] 30 mg PO BID 12/01/17 Rivaroxaban [Xarelto] 20 mg PO DAILY 12/01/17 Surgical History: noncontributory Psychiatric History: No pertinent psych hx Smoking Status: Current every day smoker - *Family History Maternal History Items: No pertinent history Paternal History Items: No pertinent history Review of Systems Unable to obtain accurate/complete ROS d/t: Intubated and sedated Patient Problems: Active and Suspected Problems Septic shock (Acute) Nicotine dependence (Acute) Metastatic adenocarcinoma to liver (Acute) Objective: Chest x-ray shows extensive right-sided infiltrates. No previous pulmonary function tests are available for review. Patient's last echocardiogram performed here was in 2015 showing an EF of 65-70% with a pulmonary artery systolic pressure of 38 mmHg and no significant valvular abnormalities. No records are available for review from the [facility]. Patient did have a CT of the abdomen completed on 12/01/2017 showing significant left greater than right bronchiectasis. - Physical Exam General: - - Intubated and sedated. Good vent synchrony noted. Appears older than stated age. HEENT: Atraumatic, PERRLA, EOMI, Normocephalic, - - Slight scleral injection without icterus Oral: No Gingival or Mucosal Lesions/ Ulcerations, Dry Mucosa Neck: Supple, No JVD, No Nodes, Trachea Midline Lungs: No wheeze, No rales, Rhonchi - Bilateral, - - Symmetric expansion. No dullness to percussion. Chest x-ray shows appropriate line placement Cardiovascular: Regular rate, Regular Rhythm, Normal S1, Normal S2, No murmurs, No rub noted, No Gallop, - - Normal sinus rhythm noted on telemetry. EKG shows incomplete right bundle Abdomen: Soft, Non Tender, Non-Distended, Hypoactive Bowel Sounds Extremities: No clubbing, No cyanosis, No edema Skin: - - Some without obvious breakdown. Musculoskeletal: No Tenderness to Palpation of Joints or Extremities Lymphatic: No Cervical, Supraclavicular, or Inguinal Adenopathy Neurological: Cranial nerves II-XII grossly intact, Neuro grossly intact Psych/Mental Status: Flat Affect Vital Signs Temp Pulse Resp BP Pulse Ox 34.8 C L 82 16 80/52 L 90 05/22/18 13:51 05/22/18 14:51 05/22/18 14:51 05/22/18 14:07 05/22/18 14:51 Oxygen Delivery Method Mechanical Ventilator Weight: 62.9 kg Body Mass Index (BMI) 21.0 Laboratory Tests Past 24 Hrs 05/22/18 05/22/18 05/22/18 10:35 10:35 10:35 WBC 24.8 H RBC 5.54 Hgb 14.1 Hct 46.9 MCV 84.7 MCH 25.5 L MCHC 30.1 L RDW 15.6 H RDW Differential 48.3 H Plt Count 320 MPV 8.5 Immature Gran % (Auto) 0.500 Neut % (Auto) 91.8 H Lymph % (Auto) 2.7 L [place] % (Auto) 5.0 Eos % (Auto) 0.0 Baso % (Auto) 0.0 Absolute Neuts (auto) 22.8 H Absolute Lymphs (auto) 0.68 L Total Counted Not Reportable Differential Comment COMMENT PT 25.0 H INR 2.3 APTT 36.1 Specimen Type Sample Site pH Bicarbonate Actual POC Total CO2 Base Excess O2 Saturation O2 % ABG pCO2 ABG pO2 Silver Test Respiration Rate O2 Delivery Device Vent Mode Tidal Volume POC PEEP Blood Gas Notified Whom Blood Gas Notified Time Sodium Cancelled Potassium Cancelled Chloride Cancelled Carbon Dioxide Cancelled Anion Gap Cancelled BUN Cancelled Creatinine Cancelled Estim Creat Clear Calc Cancelled Est GFR (MDRD) Af Amer Cancelled Est GFR (MDRD) Non-Af Cancelled BUN/Creatinine Ratio Cancelled Glucose Cancelled Lactic Acid Calcium Cancelled Total Bilirubin Cancelled AST Cancelled ALT Cancelled Alkaline Phosphatase Cancelled Ammonia Troponin I Cancelled Total Protein Cancelled Albumin Cancelled Globulin Cancelled Albumin/Globulin Ratio Cancelled Urine Color Urine Clarity Urine pH Ur Specific Cleves Urine Protein Urine Glucose (UA) Urine Ketones Urine Occult Blood Urine Nitrite Urine Bilirubin Urine Urobilinogen Ur Leukocyte Esterase Urine RBC Urine WBC Ur Squamous Epith Cells Urine Bacteria Hyaline Casts Urine Mucus 05/22/18 05/22/18 05/22/18 11:02 11:10 11:10 WBC RBC Hgb Hct MCV MCH MCHC RDW RDW Differential Plt Count MPV Immature Gran % (Auto) Neut % (Auto) Lymph % (Auto) [place] % (Auto) Eos % (Auto) Baso % (Auto) Absolute Neuts (auto) Absolute Lymphs (auto) Total Counted Differential Comment PT INR APTT Specimen Type ART Sample Site R Radial pH 7.18 L* Bicarbonate Actual 38.2 H POC Total CO2 41 Base Excess 10 H O2 Saturation 100 H O2 % 100 ABG pCO2 101.4 H* ABG pO2 407 H* Silver Test POS Respiration Rate 16 O2 Delivery Device Vent Vent Mode A-C Tidal Volume 450 POC PEEP 5 Blood Gas Notified Whom ED Blood Gas Notified Time 1055 Sodium Potassium Chloride Carbon Dioxide Anion Gap BUN Creatinine Estim Creat Clear Calc Est GFR (MDRD) Af Amer Est GFR (MDRD) Non-Af BUN/Creatinine Ratio Glucose Lactic Acid 2.0 Calcium Total Bilirubin AST ALT Alkaline Phosphatase Ammonia 45.0 H Troponin I Total Protein Albumin Globulin Albumin/Globulin Ratio Urine Color Urine Clarity Urine pH Ur Specific Cleves Urine Protein Urine Glucose (UA) Urine Ketones Urine Occult Blood Urine Nitrite Urine Bilirubin Urine Urobilinogen Ur Leukocyte Esterase Urine RBC Urine WBC Ur Squamous Epith Cells Urine Bacteria Hyaline Casts Urine Mucus 05/22/18 05/22/18 11:20 11:20 WBC RBC Hgb Hct MCV MCH MCHC RDW RDW Differential Plt Count MPV Immature Gran % (Auto) Neut % (Auto) Lymph % (Auto) [place] % (Auto) Eos % (Auto) Baso % (Auto) Absolute Neuts (auto) Absolute Lymphs (auto) Total Counted Differential Comment PT INR APTT Specimen Type Sample Site pH Bicarbonate Actual POC Total CO2 Base Excess O2 Saturation O2 % ABG pCO2 ABG pO2 Silver Test Respiration Rate O2 Delivery Device Vent Mode Tidal Volume POC PEEP Blood Gas Notified Whom Blood Gas Notified Time Sodium 134 L Potassium 6.1 H* Chloride 98 Carbon Dioxide 36.0 H Anion Gap 0 L BUN 18 Creatinine 1.19 Estim Creat Clear Calc 52.86 Est GFR (MDRD) Af Amer 78 Est GFR (MDRD) Non-Af 65 BUN/Creatinine Ratio 15.1 Glucose 163 H Lactic Acid Calcium 7.8 L Total Bilirubin 1.00 AST 64 H ALT 41 Alkaline Phosphatase 149 H Ammonia Troponin I < 0.015 Total Protein 6.6 Albumin 2.2 L Globulin 4.4 H Albumin/Globulin Ratio 0.5 L Urine Color Yellow Urine Clarity Sl. Cloudy Urine pH 5.0 Ur Specific Cleves 1.025 Urine Protein 30 H Urine Glucose (UA) Normal Urine Ketones 5 H Urine Occult Blood 50 H Urine Nitrite Negative Urine Bilirubin 3 H Urine Urobilinogen 12 H Ur Leukocyte Esterase 25 H Urine RBC 0-5 SEEN Urine WBC 0-5 SEEN Ur Squamous Epith Cells 0 SEEN Urine Bacteria 0 SEEN Hyaline Casts 5-10 SEEN Urine Mucus 0 SEEN Clinical Impression(s) from Imaging Studies Chest X-Ray 05/22/18 10:36 IMPRESSION: Right lower lobe consolidation. Infiltration in the left lower lobe with blunting of both costophrenic angles. Electronically Signed: Nelson Fournier, at 12:45 EDT , Service support , Brain CT 05/22/18 10:53 IMPRESSION: Chronic involutional changes of the brain. Electronically Signed: Nelson Fournier, at 13:00 EDT , Service support , Assessment/Plan Active and Suspected Problems Septic shock (Acute) Nicotine dependence (Acute) Metastatic adenocarcinoma to liver (Acute) RECOMMENDATIONS: 1. ABG after 1 hour 2. Possible need for pressor agents 3. Wean oxygen as tolerated 4. Continue bronchodilators and antibiotics, add steroids. 5. Spontaneous breathing and awakening trials per protocol 6. Hold antihypertensives and Lasix therapy for now IMPRESSIONS: 1. Acute combined respiratory failure secondary to pneumonia in the setting of reported COPD and bronchiectasis Patient with significant CO2 retention on initial ABG. This will be repeated following mechanical ventilation. Extensive infiltrate appreciated on chest x-ray. Patient did have bronchiectasis in the past, so would be at risk for multidrug-resistant Pseudomonas and MRSA. Agree with Zosyn and vancomycin. Patient is on bronchodilators. Will add steroids given history of obstructive lung disease. Wean oxygen as tolerated. Spontaneous breathing and awakening trials per protocol. 2. Septic shock Patient has received 30 cc/kg and broad-spectrum antibiotics. Blood pressure is marginal at this time, but urine output appears to be appropriate. Patient may have decreased baseline blood pressure given liver dysfunction. Holding off on central line secondary to coagulopathy with Xarelto. Antihypertensives and Lasix therapy will need to be held. Patient was hypothermic on presentation. Doubt this is from climate. 3. Coagulopathy Patient on Xarelto therapy at baseline. Unknown baseline creatinine and INR is not a good surrogate. Will attempt to hold off for metabolism prior to invasive procedures if able 4. Probable metabolic encephalopathy Patient's ammonia level was elevated. Patient can be placed on lactulose. We will have to monitor patient for possible anoxic brain injury as patient was found hypoxic. 5. Metastatic liver cancer/reported COPD/diabetes mellitus Complicates care, management, recovery and prognosis. We will need to monitor with sliding scale insulin TIME: 45 minutes critical care time spent addressing patient's acute combined respiratory failure, septic shock, coagulopathy, review of all data and collaboration with care team (2:30 PM to 3:30 PM) Code Visit [id number]: [id number] Critical care first hour
--- NOTE | 2018-05-22 15:09 | CON.PCM_ITS ---
Problem List (1) Septic shock Status: Acute (2) Metastatic adenocarcinoma to liver Status: Acute (3) SVT (supraventricular tachycardia) Status: Acute (4) Acute respiratory failure with hypoxia Status: Acute (5) Type II diabetes mellitus Status: Chronic Qualifiers: Diabetes mellitus termite control service representative insulin use: without termite control service representative use Diabetes mellitus complication status: with unspecified complications Qualified Code(s): E11.8 - Type 2 diabetes mellitus with unspecified complications (6) Hypertension Status: Chronic Qualifiers: Hypertension type: essential hypertension Qualified Code(s): I10 - Essential (primary) hypertension (7) COPD (chronic obstructive pulmonary disease) Status: Chronic Qualifiers: COPD type: COPD with acute exacerbation Qualified Code(s): J44.1 - Chronic obstructive pulmonary disease with (acute) exacerbation Comment: Reported FEV1 40% Reason for Consult Date of Consultation: 05/22/18 Reason for Consultation: Respiratory failure History of Present Illness: The patient is a 67 year old M who presented to [facility] on 05/22/2018 secondary to being found unresponsive. Patient reportedly was breathing only intermittently and then went occasionally flail his arms. 911 was called and EMS a documented the same. Patient reportedly was saturating 80% on room air at home. Patient does have a history of hepatic cancer treated with radiation seeds in the fall of last year. Patient does follow with [facility] oncology at [facility]. Patient reportedly was doing arm weights and had some chest discomfort reported yesterday, but thought this was related to his workup. Patient does have chronic rhinorrhea and a cough, but this reportedly was not different from baseline. On presentation to the emergency room, patient was noted to be agonal and respirations in 100% on nonrebreather. CODE STATUS was verified and the patient received etomidate and succinylcholine for intubation. Shortly after intubation, copious secretions were reported from the endotracheal tube. Patient was placed on a propofol drip and was noted to become hypotensive. Patient has received 3 L of IV fluids downstairs, but blood pressure did respond to decreasing propofol. Patient reportedly does have a history of MRSA in the past, so patient was placed on vancomycin and Zosyn. On arrival to the intensive care unit, patient's blood pressure was noted is marginal. Patient was not tachycardic and was tolerating ventilator well. Patient was unable to provide any review of systems or additional history. Past Medical History Past Medical History (Chronic Problems): Chronic Problems Type II diabetes mellitus (Chronic) Hypertension (Chronic) COPD (chronic obstructive pulmonary disease) (Chronic) Reported FEV1 40% Allergies tramadol Allergy (Verified 05/22/18 12:50) Rash Home Medications: Ambulatory Orders Medication Instructions Recorded Albuterol IH (ProAir) [Proair Hfa] 2 puff INHALATION Q4H PRN PRN 08/31/15 Ipratropium/Albuterol Sulfate 3 ml INHALATION Q6HWA.RT 08/31/15 [Duoneb] Oxycodone [Oxyir] 10 mg PO Q6H PRN PRN 08/31/15 Amox/Clavulanate Tablet [Augmentin 500 mg PO BIDCM #11 tablet 09/04/15 Tablet] Diltiazem CD [Cardizem CD] 120 mg PO DAILY #30 capsule 09/04/15 Glimepiride [Amaryl] 2 mg PO DAILY #30 tablet 09/04/15 Guaifenesin [Mucinex] 1,200 mg PO BID #10 tablet 09/04/15 Nebulizer Accessories [Aeroneb Go] 1 each MC PRN PRN #1 each 09/04/15 Nebulizer Accessories [Innospire 1 each MC PRN PRN #1 each 09/04/15 Replacement Filter] Nebulizer Accessories [Pillow Mask] 1 each MC PRN PRN #1 each 09/04/15 Nebulizer [Aeroneb Go Nebulizer] 1 each MC PRN PRN #1 each 09/04/15 Nicotine [Nicoderm Cq] 21 mg TRANSDERM. DAILY 30 Days 09/04/15 patch Duloxetine HCl 60 mg PO DAILY 12/01/17 Furosemide [Lasix] 20 mg PO DAILY 12/01/17 Gabapentin [Neurontin] 100 mg PO TID 12/01/17 Losartan Potassium 25 mg PO DAILY 12/01/17 Metoprolol Tartrate [Lopressor 25 mg PO BID 12/01/17 (beta elen)] Morphine [Morphine IR] 30 mg PO BID 12/01/17 Rivaroxaban [Xarelto] 20 mg PO DAILY 12/01/17 Surgical History: noncontributory Psychiatric History: No pertinent psych hx Smoking Status: Current every day smoker - *Family History Maternal History Items: No pertinent history Paternal History Items: No pertinent history Review of Systems Unable to obtain accurate/complete ROS d/t: Intubated and sedated Patient Problems: Active and Suspected Problems Septic shock (Acute) Nicotine dependence (Acute) Metastatic adenocarcinoma to liver (Acute) Objective: Chest x-ray shows extensive right-sided infiltrates. No previous pulmonary function tests are available for review. Patient's last echocardiogram performed here was in 2015 showing an EF of 65-70% with a pulmonary artery systolic pressure of 38 mmHg and no significant valvular abnormalities. No records are available for review from the [facility]. Patient did have a CT of the abdomen completed on 12/01/2017 showing significant left greater than right bronchiectasis. - Physical Exam General: - - Intubated and sedated. Good vent synchrony noted. Appears older than stated age. HEENT: Atraumatic, PERRLA, EOMI, Normocephalic, - - Slight scleral injection without icterus Oral: No Gingival or Mucosal Lesions/ Ulcerations, Dry Mucosa Neck: Supple, No JVD, No Nodes, Trachea Midline Lungs: No wheeze, No rales, Rhonchi - Bilateral, - - Symmetric expansion. No dullness to percussion. Chest x-ray shows appropriate line placement Cardiovascular: Regular rate, Regular Rhythm, Normal S1, Normal S2, No murmurs, No rub noted, No Gallop, - - Normal sinus rhythm noted on telemetry. EKG shows incomplete right bundle Abdomen: Soft, Non Tender, Non-Distended, Hypoactive Bowel Sounds Extremities: No clubbing, No cyanosis, No edema Skin: - - Some without obvious breakdown. Musculoskeletal: No Tenderness to Palpation of Joints or Extremities Lymphatic: No Cervical, Supraclavicular, or Inguinal Adenopathy Neurological: Cranial nerves II-XII grossly intact, Neuro grossly intact Psych/Mental Status: Flat Affect Vital Signs Temp Pulse Resp BP Pulse Ox 34.8 C L 82 16 80/52 L 90 05/22/18 13:51 05/22/18 14:51 05/22/18 14:51 05/22/18 14:07 05/22/18 14:51 Oxygen Delivery Method Mechanical Ventilator Weight: 62.9 kg Body Mass Index (BMI) 21.0 Laboratory Tests Past 24 Hrs 05/22/18 05/22/18 05/22/18 10:35 10:35 10:35 WBC 24.8 H RBC 5.54 Hgb 14.1 Hct 46.9 MCV 84.7 MCH 25.5 L MCHC 30.1 L RDW 15.6 H RDW Differential 48.3 H Plt Count 320 MPV 8.5 Immature Gran % (Auto) 0.500 Neut % (Auto) 91.8 H Lymph % (Auto) 2.7 L Bacon % (Auto) 5.0 Eos % (Auto) 0.0 Baso % (Auto) 0.0 Absolute Neuts (auto) 22.8 H Absolute Lymphs (auto) 0.68 L Total Counted Not Reportable Differential Comment COMMENT PT 25.0 H INR 2.3 APTT 36.1 Specimen Type Sample Site pH Bicarbonate Actual POC Total CO2 Base Excess O2 Saturation O2 % ABG pCO2 ABG pO2 Silver Test Respiration Rate O2 Delivery Device Vent Mode Tidal Volume POC PEEP Blood Gas Notified Whom Blood Gas Notified Time Sodium Cancelled Potassium Cancelled Chloride Cancelled Carbon Dioxide Cancelled Anion Gap Cancelled BUN Cancelled Creatinine Cancelled Estim Creat Clear Calc Cancelled Est GFR (MDRD) Af Amer Cancelled Est GFR (MDRD) Non-Af Cancelled BUN/Creatinine Ratio Cancelled Glucose Cancelled Lactic Acid Calcium Cancelled Total Bilirubin Cancelled AST Cancelled ALT Cancelled Alkaline Phosphatase Cancelled Ammonia Troponin I Cancelled Total Protein Cancelled Albumin Cancelled Globulin Cancelled Albumin/Globulin Ratio Cancelled Urine Color Urine Clarity Urine pH Ur Specific [place] Urine Protein Urine Glucose (UA) Urine Ketones Urine Occult Blood Urine Nitrite Urine Bilirubin Urine Urobilinogen Ur Leukocyte Esterase Urine RBC Urine WBC Ur Squamous Epith Cells Urine Bacteria Hyaline Casts Urine Mucus 05/22/18 05/22/18 05/22/18 11:02 11:10 11:10 WBC RBC Hgb Hct MCV MCH MCHC RDW RDW Differential Plt Count MPV Immature Gran % (Auto) Neut % (Auto) Lymph % (Auto) Bacon % (Auto) Eos % (Auto) Baso % (Auto) Absolute Neuts (auto) Absolute Lymphs (auto) Total Counted Differential Comment PT INR APTT Specimen Type ART Sample Site R Radial pH 7.18 L* Bicarbonate Actual 38.2 H POC Total CO2 41 Base Excess 10 H O2 Saturation 100 H O2 % 100 ABG pCO2 101.4 H* ABG pO2 407 H* Silver Test POS Respiration Rate 16 O2 Delivery Device Vent Vent Mode A-C Tidal Volume 450 POC PEEP 5 Blood Gas Notified Whom ED Blood Gas Notified Time 1055 Sodium Potassium Chloride Carbon Dioxide Anion Gap BUN Creatinine Estim Creat Clear Calc Est GFR (MDRD) Af Amer Est GFR (MDRD) Non-Af BUN/Creatinine Ratio Glucose Lactic Acid 2.0 Calcium Total Bilirubin AST ALT Alkaline Phosphatase Ammonia 45.0 H Troponin I Total Protein Albumin Globulin Albumin/Globulin Ratio Urine Color Urine Clarity Urine pH Ur Specific [place] Urine Protein Urine Glucose (UA) Urine Ketones Urine Occult Blood Urine Nitrite Urine Bilirubin Urine Urobilinogen Ur Leukocyte Esterase Urine RBC Urine WBC Ur Squamous Epith Cells Urine Bacteria Hyaline Casts Urine Mucus 05/22/18 05/22/18 11:20 11:20 WBC RBC Hgb Hct MCV MCH MCHC RDW RDW Differential Plt Count MPV Immature Gran % (Auto) Neut % (Auto) Lymph % (Auto) Bacon % (Auto) Eos % (Auto) Baso % (Auto) Absolute Neuts (auto) Absolute Lymphs (auto) Total Counted Differential Comment PT INR APTT Specimen Type Sample Site pH Bicarbonate Actual POC Total CO2 Base Excess O2 Saturation O2 % ABG pCO2 ABG pO2 Silver Test Respiration Rate O2 Delivery Device Vent Mode Tidal Volume POC PEEP Blood Gas Notified Whom Blood Gas Notified Time Sodium 134 L Potassium 6.1 H* Chloride 98 Carbon Dioxide 36.0 H Anion Gap 0 L BUN 18 Creatinine 1.19 Estim Creat Clear Calc 52.86 Est GFR (MDRD) Af Amer 78 Est GFR (MDRD) Non-Af 65 BUN/Creatinine Ratio 15.1 Glucose 163 H Lactic Acid Calcium 7.8 L Total Bilirubin 1.00 AST 64 H ALT 41 Alkaline Phosphatase 149 H Ammonia Troponin I < 0.015 Total Protein 6.6 Albumin 2.2 L Globulin 4.4 H Albumin/Globulin Ratio 0.5 L Urine Color Yellow Urine Clarity Sl. Cloudy Urine pH 5.0 Ur Specific [place] 1.025 Urine Protein 30 H Urine Glucose (UA) Normal Urine Ketones 5 H Urine Occult Blood 50 H Urine Nitrite Negative Urine Bilirubin 3 H Urine Urobilinogen 12 H Ur Leukocyte Esterase 25 H Urine RBC 0-5 SEEN Urine WBC 0-5 SEEN Ur Squamous Epith Cells 0 SEEN Urine Bacteria 0 SEEN Hyaline Casts 5-10 SEEN Urine Mucus 0 SEEN Clinical Impression(s) from Imaging Studies Chest X-Ray 05/22/18 10:36 IMPRESSION: Right lower lobe consolidation. Infiltration in the left lower lobe with blunting of both costophrenic angles. Electronically Signed: Nelson Fournier, at 12:45 EDT , Service support , Brain CT 05/22/18 10:53 IMPRESSION: Chronic involutional changes of the brain. Electronically Signed: Nelson Fournier, at 13:00 EDT , Service support , Assessment/Plan Active and Suspected Problems Septic shock (Acute) Nicotine dependence (Acute) Metastatic adenocarcinoma to liver (Acute) RECOMMENDATIONS: 1. ABG after 1 hour 2. Possible need for pressor agents 3. Wean oxygen as tolerated 4. Continue bronchodilators and antibiotics, add steroids. 5. Spontaneous breathing and awakening trials per protocol 6. Hold antihypertensives and Lasix therapy for now IMPRESSIONS: 1. Acute combined respiratory failure secondary to pneumonia in the setting of reported COPD and bronchiectasis Patient with significant CO2 retention on initial ABG. This will be repeated following mechanical ventilation. Extensive infiltrate appreciated on chest x-ray. Patient did have bronchiectasis in the past, so would be at risk for multidrug-resistant Pseudomonas and MRSA. Agree with Zosyn and vancomycin. Patient is on bronchodilators. Will add steroids given history of obstructive lung disease. Wean oxygen as tolerated. Spontaneous breathing and awakening trials per protocol. 2. Septic shock Patient has received 30 cc/kg and broad-spectrum antibiotics. Blood pressure is marginal at this time, but urine output appears to be appropriate. Patient may have decreased baseline blood pressure given liver dysfunction. Holding off on central line secondary to coagulopathy with Xarelto. Antihypertensives and Lasix therapy will need to be held. Patient was hypothermic on presentation. Doubt this is from climate. 3. Coagulopathy Patient on Xarelto therapy at baseline. Unknown baseline creatinine and INR is not a good surrogate. Will attempt to hold off for metabolism prior to invasive procedures if able 4. Probable metabolic encephalopathy Patient's ammonia level was elevated. Patient can be placed on lactulose. We will have to monitor patient for possible anoxic brain injury as patient was found hypoxic. 5. Metastatic liver cancer/reported COPD/diabetes mellitus Complicates care, management, recovery and prognosis. We will need to monitor with sliding scale insulin TIME: 45 minutes critical care time spent addressing patient's acute combined respiratory failure, septic shock, coagulopathy, review of all data and collaboration with care team (2:30 PM to 3:30 PM) Code Visit 9xxxx: [id number] Critical care first hour
[2018-05-22 15:15] LABS: Reflex Lactate? Y
[2018-05-22 15:18] LABS: Absolute Lymphocyte Count 0.73 X10^3/ul (0.83-4.51); Absolute Neutrophil Count 19.4 X10^3/uL (2.0-7.7); Basophil# 0.02 X10^3/uL; Basophil% 0.1 % (0-1); Hematocrit 37.6 % (40-54); Hemoglobin 11.2 g/dl (13.0-16.5); Lymphocyte # 0.73 X10^3/ul (4.0); Lymphocyte % 3.4 % (19-41); Mean Corp Hgb Conc 29.8 g/gl (32-36); Mean Corpuscular Hgb 25.5 pg (27.0-32.0); Mean Corpuscular Volume 85.6 fL (80-94); Mean Platelet Vol. 8.5 fl (6.2-12.0); Monocyte# 1.45 X10^3/uL; Monocyte% 6.7 % (0-10); Neutrophil # 19.38 X10^3/uL (2.7-7.7); Neutrophil % 89.6 % (47-70); POSITIVE COUNT NO; POSITIVE DIFFERENTIAL NO; POSITIVE MORPHOLOGY NO; Platelet Count 136 K/mm3 (150-450); RBC Distribution Width CV 15.4 % (11.6-14.6); RBC Distribution Width SD 48.7 fl (35.1-43.9); Red Blood Count 4.39 M/mm3 (4.6-6.2); White Blood Count 21.6 K/mm3 (4.4-11.0)
--- NOTE | 2018-05-22 15:20 | NURSING ---
Unable to complete CAM d/t RASS; propofol on hold
--- NOTE | 2018-05-22 15:23 | PCM.RX.CS ---
Consult Pharmacy has been consulted to manage selected antiobiotic: Vancomycin Type of Consult: New start Suspected Infection: Sepsis, Pneumonia Prior Doses of Antibiotics Received/Current Regimen: Received vancomycin 1000mg IV x1 in E.D. at 12:47 today Labs: Sodium 134 mmol/L (136-145) L 05/22/18 11:20 Potassium 6.1 mmol/L (3.5-5.1) H* 05/22/18 11:20 Chloride 98 mmol/L (98-107) 05/22/18 11:20 Carbon Dioxide 36.0 mmol/L (21.0-32.0) H 05/22/18 11:20 Anion Gap 0 (5-15) L 05/22/18 11:20 BUN 18 mg/dL (7-18) 05/22/18 11:20 Creatinine 1.19 mg/dL (0.70-1.30) 05/22/18 11:20 Est GFR (MDRD) Af Amer 78 mL/min (>60) 05/22/18 11:20 Est GFR (MDRD) Non-Af 65 mL/min (>60) 05/22/18 11:20 BUN/Creatinine Ratio 15.1 RATIO (10-20) 05/22/18 11:20 Glucose 163 mg/dL (74-106) H 05/22/18 11:20 Weight used for dosin.9 kg Estimated Creatinine Clearance: 53 ml/min Goal Trough: 15-20 mcg/mL Pharmacy Plan for Drug Dosing: The plan is to continue with 500mg IV q12h to start 12 hours after the E.D. dose. Obtain a trough before the 4th dose. Pharmacy Service will continue to monitor and adjust dosing as required. Follow-Up Labs: Trough Vancomycin Labs to be done on [date and time ordered]: 05/24/18 00:30
[2018-05-22] MEDS: Chlorhexidine 15 ML PO ×2 (15:32→21:12)
[2018-05-22 15:33] LABS: ALB/GLOB Ratio 0.6 RATIO (0.9-2.4); AST(SGOT) 53 U/L (15-37); Alanine Aminotransfer ALT/SGPT 34 U/L (16-61); Albumin, Serum 1.9 g/dL (3.2-5.0); Alkaline Phosphatase 122 U/L (45-117); Anion Gap 2 (5-15); BUN 17 mg/dL (7-18); BUN/Creat Ratio 18.9 RATIO (10-20); Calcium,Total 6.6 mg/dL (8.5-10.1); Chloride 107 mmol/L (98-107); EST Glomerular Filtration Rate 89 mL/min (>60); Est Glom Filt Rate - Afr Amer 108 mL/min (>60); Estimated Creatinine Clearance 69.89 ml/min; Globulin 3.4 g/dL (2.2-4.2); Glucose 144 mg/dL (74-106); Potassium 4.9 mmol/L (3.5-5.1); Protein, Total 5.3 g/dL (6.4-8.2); Sodium Level 137 mmol/L (136-145)
[2018-05-22 15:51] LABS: Base Excess -1 mmol/L (-2 to +2); Bicarbonate 27.4 mmol/L (22-26); Blood Gas Specimen Type ART; FI02 40; Mode A-C; O2 Delivery Device Vent; PEEP 5; PO2 61 mmHG (75-100); RR 16; SITE R Brachial; SO2 83 % (95-99); Time Given 1540; Total Carbon Dioxide 30 mmol/L; Vt 450; pCO2 72.5 mmHg (35-45); pH 7.19 (7.35-7.45)
[2018-05-22 17:06] LABS: Bedside Glucose 115 mg/dL (70-110)
[2018-05-22] MEDS: Lactulose 20 GM/30 ML UDC 10 GM GT (21:12)
[2018-05-22] MEDS: 0.9% Normal Saline 1,000 ML 125 ML IV (23:31)
[2018-05-23] VITALS (36 sets, daily range): BP systolic 106–152; BP diastolic 55–87; PULSE 77–122; RESP 12–29; TEMP 37.1–37.6; O2SAT 92–100
[2018-05-23 00:10] LABS: Bedside Glucose 91 mg/dL (70-110)
[2018-05-23] MEDS: Vancomycin IV 500 MG/100 ML BAG 100 MG IV ×2 (01:33→12:24)
[2018-05-23 04:35] LABS: Absolute Lymphocyte Count 0.66 X10^3/ul (0.83-4.51); Absolute Neutrophil Count 17.5 X10^3/uL (2.0-7.7); Hematocrit 41.6 % (40-54); Hemoglobin 12.4 g/dl (13.0-16.5); Lymphocyte # 0.66 X10^3/ul (4.0); Lymphocyte % 3.6 % (19-41); Mean Corp Hgb Conc 29.8 g/gl (32-36); Mean Corpuscular Hgb 24.8 pg (27.0-32.0); Mean Platelet Vol. 9.1 fl (6.2-12.0); Monocyte# 0.34 X10^3/uL; Monocyte% 1.8 % (0-10); Neutrophil # 17.46 X10^3/uL (2.7-7.7); Neutrophil % 94.3 % (47-70); Platelet Count 191 K/mm3 (150-450); RBC Distribution Width CV 15.9 % (11.6-14.6); RBC Distribution Width SD 47.2 fl (35.1-43.9); Red Blood Count 5.01 M/mm3 (4.6-6.2); White Blood Count 18.5 K/mm3 (4.4-11.0)
[2018-05-23 04:40] LABS: POSITIVE COUNT NO; POSITIVE DIFFERENTIAL NO; POSITIVE MORPHOLOGY NO
[2018-05-23 04:53] LABS: Anion Gap 3 (5-15); BUN 21 mg/dL (7-18); BUN/Creat Ratio 28.5 RATIO (10-20); Calcium,Total 7.6 mg/dL (8.5-10.1); Chloride 106 mmol/L (98-107); Creatinine, Serum 0.74 mg/dL (0.70-1.30); EST Glomerular Filtration Rate 112 mL/min (>60); Est Glom Filt Rate - Afr Amer 136 mL/min (>60); Glucose 104 mg/dL (74-106); Potassium 4.6 mmol/L (3.5-5.1); Sodium Level 137 mmol/L (136-145)
[2018-05-23 06:00] LABS: Allen Test POS; Base Excess -2 mmol/L (-2 to +2); Bicarbonate 24.1 mmol/L (22-26); Blood Gas Specimen Type ART; FI02 35; Mode CPAP PS; O2 Delivery Device Vent; PEEP 5; PO2 68 mmHG (75-100); PS 5; SITE R Radial; SO2 92 % (95-99); Time Given 550; Total Carbon Dioxide 25 mmol/L; pCO2 45.3 mmHg (35-45); pH 7.33 (7.35-7.45)
[2018-05-23] MEDS: Ipratropium/Albuterol Sulfate 3 ML AMPUL.NEB INHALATION ×4 (06:53→18:49)
[2018-05-23] MEDS: 0.9% Normal Saline 1,000 ML 125 ML IV ×3 (07:16→23:25)
--- NOTE | 2018-05-23 08:37 | PN_ITS ---
Subjective: Patient did well overnight. Patient's blood pressure did improve. Patient was noted to have fever, but remained hemodynamically stable. Patient was able to undergo a spontaneous breathing trial this morning and was extubated without complication. Patient has had moderate to large secretions noted overnight. Patient denying any pain at this time. General: Alert, Oriented x3, Cooperative, No apparent distress, - - Appears older than stated age. HEENT: Atraumatic, PERRLA, EOMI, Normocephalic, - - No scleral icterus or injection noted. Oral: Moist Mucosa, No Gingival or Mucosal Lesions/ Ulcerations Neck: Supple, No Nodes, Trachea Midline, JVD, Right Lungs: No rales, Rhonchi - Bilateral, right greater than left, Wheezes - Improved with coughing, - - Symmetric expansion. Cardiovascular: Normal S1, Normal S2, No murmurs, No rub noted, No Gallop, Tachycardic Abdomen: Bowel Sounds Present, Soft, Non Tender, Distended - Slightly Extremities: No clubbing, No cyanosis, Edema Skin: - - No significant change compared to previous Musculoskeletal: No Tenderness to Palpation of Joints or Extremities Lymphatic: No Cervical, Supraclavicular, or Inguinal Adenopathy Neurological: Cranial nerves II-XII grossly intact, Neuro grossly intact, Motor Exam 5/5 strength throughout Psych/Mental Status: Normal Affect, Appropriate Vital Signs Temp Pulse Resp BP Pulse Ox 37.3 C H 105 H 24 H 133/87 H 95 05/23/18 06:00 05/23/18 07:00 05/23/18 07:00 05/23/18 07:00 05/23/18 07:00 Oxygen Flow Rate (L/min) 4 Oxygen Delivery Method Nasal Cannula Weight: 67.4 kg Body Mass Index (BMI) 22.1 Intake and Output for Last 24 Hours 05/21/18 05/22/18 05/23/18 23:59 23:59 23:59 Intake Total 1327.8 / 1327.8 1715.5 / 1715.5 Output Total 200 / 200 750 / 750 Balance 1127.8 / 1127.8 965.5 / 965.5 Labs (Last 48 Hours) 05/22/18 05/22/18 05/22/18 10:35 10:35 10:35 WBC 24.8 H RBC 5.54 Hgb 14.1 Hct 46.9 MCV 84.7 MCH 25.5 L MCHC 30.1 L RDW 15.6 H RDW Differential 48.3 H Plt Count 320 MPV 8.5 Immature Gran % (Auto) 0.500 Neut % (Auto) 91.8 H Lymph % (Auto) 2.7 L [place] % (Auto) 5.0 Eos % (Auto) 0.0 Baso % (Auto) 0.0 Absolute Neuts (auto) 22.8 H Absolute Lymphs (auto) 0.68 L Total Counted Not Reportable Differential Comment COMMENT PT 25.0 H INR 2.3 APTT 36.1 Specimen Type Sample Site pH Bicarbonate Actual POC Total CO2 Base Excess O2 Saturation O2 % ABG pCO2 ABG pO2 Silver Test Respiration Rate O2 Delivery Device Minute Volume Vent Mode Tidal Volume POC PEEP POC Pressure Suppt Blood Gas Notified Whom Blood Gas Notified Time Sodium Cancelled Potassium Cancelled Chloride Cancelled Carbon Dioxide Cancelled Anion Gap Cancelled BUN Cancelled Creatinine Cancelled Estim Creat Clear Calc Cancelled Est GFR (MDRD) Af Amer Cancelled Est GFR (MDRD) Non-Af Cancelled BUN/Creatinine Ratio Cancelled Glucose Cancelled Lactic Acid Calcium Cancelled Total Bilirubin Cancelled AST Cancelled ALT Cancelled Alkaline Phosphatase Cancelled Ammonia Troponin I Cancelled Total Protein Cancelled Albumin Cancelled Globulin Cancelled Albumin/Globulin Ratio Cancelled Urine Color Urine Clarity Urine pH Ur Specific [place] Urine Protein Urine Glucose (UA) Urine Ketones Urine Occult Blood Urine Nitrite Urine Bilirubin Urine Urobilinogen Ur Leukocyte Esterase Urine RBC Urine WBC Ur Squamous Epith Cells Urine Bacteria Hyaline Casts Urine Mucus POC Glucose 05/22/18 05/22/18 05/22/18 11:02 11:10 11:10 WBC RBC Hgb Hct MCV MCH MCHC RDW RDW Differential Plt Count MPV Immature Gran % (Auto) Neut % (Auto) Lymph % (Auto) [place] % (Auto) Eos % (Auto) Baso % (Auto) Absolute Neuts (auto) Absolute Lymphs (auto) Total Counted Differential Comment PT INR APTT Specimen Type ART Sample Site R Radial pH 7.18 L* Bicarbonate Actual 38.2 H POC Total CO2 41 Base Excess 10 H O2 Saturation 100 H O2 % 100 ABG pCO2 101.4 H* ABG pO2 407 H* Silver Test POS Respiration Rate 16 O2 Delivery Device Vent Minute Volume Vent Mode A-C Tidal Volume 450 POC PEEP 5 POC Pressure Suppt Blood Gas Notified Whom ED Blood Gas Notified Time 1055 Sodium Potassium Chloride Carbon Dioxide Anion Gap BUN Creatinine Estim Creat Clear Calc Est GFR (MDRD) Af Amer Est GFR (MDRD) Non-Af BUN/Creatinine Ratio Glucose Lactic Acid 2.0 Calcium Total Bilirubin AST ALT Alkaline Phosphatase Ammonia 45.0 H Troponin I Total Protein Albumin Globulin Albumin/Globulin Ratio Urine Color Urine Clarity Urine pH Ur Specific [place] Urine Protein Urine Glucose (UA) Urine Ketones Urine Occult Blood Urine Nitrite Urine Bilirubin Urine Urobilinogen Ur Leukocyte Esterase Urine RBC Urine WBC Ur Squamous Epith Cells Urine Bacteria Hyaline Casts Urine Mucus POC Glucose 05/22/18 05/22/18 05/22/18 11:20 11:20 15:05 WBC 21.6 H RBC 4.39 L Hgb 11.2 L Hct 37.6 L MCV 85.6 MCH 25.5 L MCHC 29.8 L RDW 15.4 H RDW Differential 48.7 H Plt Count 136 L MPV 8.5 Immature Gran % (Auto) 0.200 Neut % (Auto) 89.6 H Lymph % (Auto) 3.4 L [place] % (Auto) 6.7 Eos % (Auto) 0.0 Baso % (Auto) 0.1 Absolute Neuts (auto) 19.4 H Absolute Lymphs (auto) 0.73 L Total Counted Not Reportable Differential Comment PT INR APTT Specimen Type Sample Site pH Bicarbonate Actual POC Total CO2 Base Excess O2 Saturation O2 % ABG pCO2 ABG pO2 Silver Test Respiration Rate O2 Delivery Device Minute Volume Vent Mode Tidal Volume POC PEEP POC Pressure Suppt Blood Gas Notified Whom Blood Gas Notified Time Sodium 134 L Potassium 6.1 H* Chloride 98 Carbon Dioxide 36.0 H Anion Gap 0 L BUN 18 Creatinine 1.19 Estim Creat Clear Calc 52.86 Est GFR (MDRD) Af Amer 78 Est GFR (MDRD) Non-Af 65 BUN/Creatinine Ratio 15.1 Glucose 163 H Lactic Acid Calcium 7.8 L Total Bilirubin 1.00 AST 64 H ALT 41 Alkaline Phosphatase 149 H Ammonia Troponin I < 0.015 Total Protein 6.6 Albumin 2.2 L Globulin 4.4 H Albumin/Globulin Ratio 0.5 L Urine Color Yellow Urine Clarity Sl. Cloudy Urine pH 5.0 Ur Specific [place] 1.025 Urine Protein 30 H Urine Glucose (UA) Normal Urine Ketones 5 H Urine Occult Blood 50 H Urine Nitrite Negative Urine Bilirubin 3 H Urine Urobilinogen 12 H Ur Leukocyte Esterase 25 H Urine RBC 0-5 SEEN Urine WBC 0-5 SEEN Ur Squamous Epith Cells 0 SEEN Urine Bacteria 0 SEEN Hyaline Casts 5-10 SEEN Urine Mucus 0 SEEN POC Glucose 05/22/18 05/22/18 05/22/18 15:05 15:05 15:42 WBC RBC Hgb Hct MCV MCH MCHC RDW RDW Differential Plt Count MPV Immature Gran % (Auto) Neut % (Auto) Lymph % (Auto) [place] % (Auto) Eos % (Auto) Baso % (Auto) Absolute Neuts (auto) Absolute Lymphs (auto) Total Counted Differential Comment PT INR APTT Specimen Type ART Sample Site R Brachial pH 7.19 L* Bicarbonate Actual 27.4 H POC Total CO2 30 Base Excess -1 O2 Saturation 83 L O2 % 40 ABG pCO2 72.5 H* ABG pO2 61 L Silver Test Respiration Rate 16 O2 Delivery Device Vent Minute Volume 7.00 Vent Mode A-C Tidal Volume 450 POC PEEP 5 POC Pressure Suppt Blood Gas Notified Whom ICU MD Blood Gas Notified Time 1540 Sodium 137 Potassium 4.9 Chloride 107 Carbon Dioxide 28.0 Anion Gap 2 L BUN 17 Creatinine 0.90 Estim Creat Clear Calc 69.89 Est GFR (MDRD) Af Amer 108 Est GFR (MDRD) Non-Af 89 BUN/Creatinine Ratio 18.9 Glucose 144 H Lactic Acid Calcium 6.6 L Total Bilirubin 1.40 H AST 53 H ALT 34 Alkaline Phosphatase 122 H Ammonia 36.0 H Troponin I Total Protein 5.3 L Albumin 1.9 L Globulin 3.4 Albumin/Globulin Ratio 0.6 L Urine Color Urine Clarity Urine pH Ur Specific [place] Urine Protein Urine Glucose (UA) Urine Ketones Urine Occult Blood Urine Nitrite Urine Bilirubin Urine Urobilinogen Ur Leukocyte Esterase Urine RBC Urine WBC Ur Squamous Epith Cells Urine Bacteria Hyaline Casts Urine Mucus POC Glucose 05/22/18 05/22/18 05/23/18 16:58 23:57 04:10 WBC 18.5 H RBC 5.01 Hgb 12.4 L Hct 41.6 MCV 83.0 MCH 24.8 L MCHC 29.8 L RDW 15.9 H RDW Differential 47.2 H Plt Count 191 MPV 9.1 Immature Gran % (Auto) 0.300 Neut % (Auto) 94.3 H Lymph % (Auto) 3.6 L [place] % (Auto) 1.8 Eos % (Auto) 0.0 Baso % (Auto) 0.0 Absolute Neuts (auto) 17.5 H Absolute Lymphs (auto) 0.66 L Total Counted Not Reportable Differential Comment PT INR APTT Specimen Type Sample Site pH Bicarbonate Actual POC Total CO2 Base Excess O2 Saturation O2 % ABG pCO2 ABG pO2 Silver Test Respiration Rate O2 Delivery Device Minute Volume Vent Mode Tidal Volume POC PEEP POC Pressure Suppt Blood Gas Notified Whom Blood Gas Notified Time Sodium Potassium Chloride Carbon Dioxide Anion Gap BUN Creatinine Estim Creat Clear Calc Est GFR (MDRD) Af Amer Est GFR (MDRD) Non-Af BUN/Creatinine Ratio Glucose Lactic Acid Calcium Total Bilirubin AST ALT Alkaline Phosphatase Ammonia Troponin I Total Protein Albumin Globulin Albumin/Globulin Ratio Urine Color Urine Clarity Urine pH Ur Specific [place] Urine Protein Urine Glucose (UA) Urine Ketones Urine Occult Blood Urine Nitrite Urine Bilirubin Urine Urobilinogen Ur Leukocyte Esterase Urine RBC Urine WBC Ur Squamous Epith Cells Urine Bacteria Hyaline Casts Urine Mucus POC Glucose 115 H 91 05/23/18 05/23/18 04:10 05:56 WBC RBC Hgb Hct MCV MCH MCHC RDW RDW Differential Plt Count MPV Immature Gran % (Auto) Neut % (Auto) Lymph % (Auto) [place] % (Auto) Eos % (Auto) Baso % (Auto) Absolute Neuts (auto) Absolute Lymphs (auto) Total Counted Differential Comment PT INR APTT Specimen Type ART Sample Site R Radial pH 7.33 L Bicarbonate Actual 24.1 POC Total CO2 25 Base Excess -2 O2 Saturation 92 L O2 % 35 ABG pCO2 45.3 H ABG pO2 68 L Silver Test POS Respiration Rate O2 Delivery Device Vent Minute Volume Vent Mode CPAP PS Tidal Volume POC PEEP 5 POC Pressure Suppt 5 Blood Gas Notified Whom ICU MD Blood Gas Notified Time 550 Sodium 137 Potassium 4.6 Chloride 106 Carbon Dioxide 28.0 Anion Gap 3 L BUN 21 H Creatinine 0.74 Estim Creat Clear Calc 66.20 Est GFR (MDRD) Af Amer 136 Est GFR (MDRD) Non-Af 112 BUN/Creatinine Ratio 28.5 H Glucose 104 Lactic Acid Calcium 7.6 L Total Bilirubin AST ALT Alkaline Phosphatase Ammonia Troponin I Total Protein Albumin Globulin Albumin/Globulin Ratio Urine Color Urine Clarity Urine pH Ur Specific [place] Urine Protein Urine Glucose (UA) Urine Ketones Urine Occult Blood Urine Nitrite Urine Bilirubin Urine Urobilinogen Ur Leukocyte Esterase Urine RBC Urine WBC Ur Squamous Epith Cells Urine Bacteria Hyaline Casts Urine Mucus POC Glucose Microbiology 05/22/18 11:30 Transtracheal Aspirate Gram Stain - Final Clinical Impression(s) from Imaging Studies Chest X-Ray 05/22/18 10:36 IMPRESSION: Right lower lobe consolidation. Infiltration in the left lower lobe with blunting of both costophrenic angles. Electronically Signed: Nelson Irlanda, at 12:45 EDT , Service support , Brain CT 05/22/18 10:53 IMPRESSION: Chronic involutional changes of the brain. Electronically Signed: Nelson Fournier, at 13:00 EDT , Service support , Medical Necessity - Tobacco Use Smoking Status: Current every day smoker Tobacco Use: Cigarettes Assessment/Plan All Active Problems Septic shock (Acute) Nicotine dependence (Acute) Metastatic adenocarcinoma to liver (Acute) SVT (supraventricular tachycardia) (Acute) Atrial fibrillation (Acute) Acute respiratory failure with hypoxia (Acute) Community acquired pneumonia (Acute) RECOMMENDATIONS: 1. Aggressive pulmonary toileting 2. Continue current bronchodilators, antibiotics and steroids 3. Wean oxygen as tolerated 4. Bedside swallow evaluation. 5. Possibly reinitiate Lasix tomorrow 6. PT/OT eval IMPRESSIONS: 1. Acute combined respiratory failure secondary to pneumonia in the setting of reported COPD and bronchiectasis Patient with significant CO2 retention on initial ABG. Patient was able to pass a spontaneous breathing trial this morning. Patient still has copious secretions, but has a strong cough and was extubated. Patient does have a history of MRSA, but appears to be responding well to broad-spectrum antibiotics. Cultures are currently pending. Blood pressure appears to be improving. 2. Septic shock Patient with large right-sided pneumonia. Patient has had improvement in blood pressures overnight. No pressors have been required. We will continue to monitor closely. Patient's renal function appears to be doing okay at this time. 3. Coagulopathy Patient on Xarelto therapy at baseline. Unknown baseline creatinine and INR is not a good surrogate. Continue to hold off on anticoagulation for another 24 hours 4. Probable metabolic encephalopathy Appears to be improving. Patient's ammonia level was elevated. Patient can be placed on lactulose. We will have to monitor patient for possible anoxic brain injury as patient was found hypoxic. 5. Metastatic liver cancer/reported COPD/diabetes mellitus Complicates care, management, recovery and prognosis. We will need to monitor with sliding scale insulin TIME: 35 minutes critical care time spent addressing patient's acute combined respiratory failure, septic shock, coagulopathy, review of all data and collaboration with care team (5:45 AM to 6:45 AM) Code Visit [id number]: [id number] Critical care first hour
[2018-05-23] MEDS: CHLORHEXIDINE GLUC 2% CLOTH 1 EACH TOWELETTE TOPICAL (10:00)
[2018-05-23 10:26] LABS: Bedside Glucose 98 mg/dL (70-110)
--- NOTE | 2018-05-23 10:48 | PCM.PN.HOSP ---
Patient Problems: Active and Suspected Problems Septic shock (Acute) Pneumonia due to methicillin resistant Staphylococcus aureus (MRSA) (Suspected) Subjective: Extubated today. Groggy per nursing. Patient denies any SOB. Vitals/I&O's: Vital Signs Temp Pulse Resp BP Pulse Ox 37.1 C 97 23 H 128/68 H 96 05/23/18 08:00 05/23/18 09:00 05/23/18 09:00 05/23/18 09:00 05/23/18 09:00 Oxygen Flow Rate (L/min) 4 Oxygen Delivery Method Nasal Cannula Weight: 67.4 kg Body Mass Index (BMI) 22.1 Intake and Output for Last 24 Hours 05/21/18 05/22/18 05/23/18 23:59 23:59 23:59 Intake Total 1327.8 / 1327.8 1715.5 / 1715.5 Output Total 200 / 200 750 / 750 Balance 1127.8 / 1127.8 965.5 / 965.5 General: - - groggy, afebrile, no respiratory distress. HEENT: Atraumatic, Normocephalic, - - no sleral icterus Oral: Moist Mucosa, No Gingival or Mucosal Lesions/ Ulcerations Neck: No Nodes, Thyroid Normal Size and Texture Lungs: Diminished, - - coarse BS bilaterally. Cardiovascular: Regular rate, Regular Rhythm, Normal S1, Normal S2, No murmurs Abdomen: Bowel Sounds Present, Soft, Non Tender, Non-Distended, No Hepato-splenomegaly Extremities: No edema, No Calf Tenderness Skin: No rashes, No breakdown Musculoskeletal: Cachexia, Muscle Wasting Neurological: - - hypperreflexia left patella. no clonus. Psych/Mental Status: Appropriate, Flat Affect Microbiology Past 72 Hours 05/22/18 11:30 Transtracheal Aspirate Gram Stain - Final Laboratory Results 05/22/18 10:35: Sodium Cancelled, Potassium Cancelled, Chloride Cancelled, Carbon Dioxide Cancelled, Anion Gap Cancelled, BUN Cancelled, Creatinine Cancelled, Estim Creat Clear Calc Cancelled, Est GFR (MDRD) Af Amer Cancelled, Est GFR (MDRD) Non-Af Cancelled, BUN/Creatinine Ratio Cancelled, Glucose Cancelled, Calcium Cancelled, Total Bilirubin Cancelled, AST Cancelled, ALT Cancelled, Alkaline Phosphatase Cancelled, Troponin I Cancelled, Total Protein Cancelled, Albumin Cancelled, Globulin Cancelled, Albumin/Globulin Ratio Cancelled 05/22/18 10:35: WBC 24.8 H, RBC 5.54, Hgb 14.1, Hct 46.9, MCV 84.7, MCH 25.5 L, MCHC 30.1 L, RDW 15.6 H, RDW Differential 48.3 H, Plt Count 320, MPV 8.5, Immature Gran % (Auto) 0.500, Neut % (Auto) 91.8 H, Lymph % (Auto) 2.7 L, [place] % (Auto) 5.0, Eos % (Auto) 0.0, Baso % (Auto) 0.0, Absolute Neuts (auto) 22.8 H, Absolute Lymphs (auto) 0.68 L, Total Counted Not Reportable, Differential Comment COMMENT 05/22/18 10:35: PT 25.0 H, INR 2.3, APTT 36.1 05/22/18 11:02: Specimen Type ART, Sample Site R Radial, pH 7.18 L*, Bicarbonate Actual 38.2 H, POC Total CO2 41, Base Excess 10 H, O2 Saturation 100 H, O2 % 100, ABG pCO2 101.4 H*, ABG pO2 407 H*, Silver Test POS, Respiration Rate 16, O2 Delivery Device Vent, Vent Mode A-C, Tidal Volume 450, POC PEEP 5, Blood Gas Notified Whom ED , Blood Gas Notified Time 1055 05/22/18 11:10: Ammonia 45.0 H 05/22/18 11:10: Lactic Acid 2.0 05/22/18 11:20: Sodium 134 L, Potassium 6.1 H*, Chloride 98, Carbon Dioxide 36.0 H, Anion Gap 0 L, BUN 18, Creatinine 1.19, Estim Creat Clear Calc 52.86, Est GFR (MDRD) Af Amer 78, Est GFR (MDRD) Non-Af 65, BUN/Creatinine Ratio 15.1, Glucose 163 H, Calcium 7.8 L, Total Bilirubin 1.00, AST 64 H, ALT 41, Alkaline Phosphatase 149 H, Troponin I < 0.015, Total Protein 6.6, Albumin 2.2 L, Globulin 4.4 H, Albumin/Globulin Ratio 0.5 L 05/22/18 11:20: Urine Color Yellow, Urine Clarity Sl. Cloudy, Urine pH 5.0, Ur Specific [place] 1.025, Urine Protein 30 H, Urine Glucose (UA) Normal, Urine Ketones 5 H, Urine Occult Blood 50 H, Urine Nitrite Negative, Urine Bilirubin 3 H, Urine Urobilinogen 12 H, Ur Leukocyte Esterase 25 H, Urine RBC 0-5 SEEN, Urine WBC 0-5 SEEN, Ur Squamous Epith Cells 0 SEEN, Urine Bacteria 0 SEEN, Hyaline Casts 5-10 SEEN, Urine Mucus 0 SEEN 05/22/18 15:05: WBC 21.6 H, RBC 4.39 L, Hgb 11.2 L, Hct 37.6 L, MCV 85.6, MCH 25.5 L, MCHC 29.8 L, RDW 15.4 H, RDW Differential 48.7 H, Plt Count 136 L, MPV 8.5, Immature Gran % (Auto) 0.200, Neut % (Auto) 89.6 H, Lymph % (Auto) 3.4 L, [place] % (Auto) 6.7, Eos % (Auto) 0.0, Baso % (Auto) 0.1, Absolute Neuts (auto) 19.4 H, Absolute Lymphs (auto) 0.73 L, Total Counted Not Reportable 05/22/18 15:05: Sodium 137, Potassium 4.9, Chloride 107, Carbon Dioxide 28.0, Anion Gap 2 L, BUN 17, Creatinine 0.90, Estim Creat Clear Calc 69.89, Est GFR (MDRD) Af Amer 108, Est GFR (MDRD) Non-Af 89, BUN/Creatinine Ratio 18.9, Glucose 144 H, Calcium 6.6 L, Total Bilirubin 1.40 H, AST 53 H, ALT 34, Alkaline Phosphatase 122 H, Total Protein 5.3 L, Albumin 1.9 L, Globulin 3.4, Albumin/Globulin Ratio 0.6 L 05/22/18 15:05: Ammonia 36.0 H 05/22/18 15:42: Specimen Type ART, Sample Site R Brachial, pH 7.19 L*, Bicarbonate Actual 27.4 H, POC Total CO2 30, Base Excess -1, O2 Saturation 83 L, O2 % 40, ABG pCO2 72.5 H*, ABG pO2 61 L, Respiration Rate 16, O2 Delivery Device Vent, Minute Volume 7.00, Vent Mode A-C, Tidal Volume 450, POC PEEP 5, Blood Gas Notified Whom ICU MD, Blood Gas Notified Time 1540 05/22/18 16:58: POC Glucose 115 H 05/22/18 23:57: POC Glucose 91 05/23/18 04:10: WBC 18.5 H, RBC 5.01, Hgb 12.4 L, Hct 41.6, MCV 83.0, MCH 24.8 L, MCHC 29.8 L, RDW 15.9 H, RDW Differential 47.2 H, Plt Count 191, MPV 9.1, Immature Gran % (Auto) 0.300, Neut % (Auto) 94.3 H, Lymph % (Auto) 3.6 L, [place] % (Auto) 1.8, Eos % (Auto) 0.0, Baso % (Auto) 0.0, Absolute Neuts (auto) 17.5 H, Absolute Lymphs (auto) 0.66 L, Total Counted Not Reportable 05/23/18 04:10: Sodium 137, Potassium 4.6, Chloride 106, Carbon Dioxide 28.0, Anion Gap 3 L, BUN 21 H, Creatinine 0.74, Estim Creat Clear Calc 66.20, Est GFR (MDRD) Af Amer 136, Est GFR (MDRD) Non-Af 112, BUN/Creatinine Ratio 28.5 H, Glucose 104, Calcium 7.6 L 05/23/18 05:56: Specimen Type ART, Sample Site R Radial, pH 7.33 L, Bicarbonate Actual 24.1, POC Total CO2 25, Base Excess -2, O2 Saturation 92 L, O2 % 35, ABG pCO2 45.3 H, ABG pO2 68 L, Silver Test POS, O2 Delivery Device Vent, Vent Mode CPAP PS, POC PEEP 5, POC Pressure Suppt 5, Blood Gas Notified Whom ICU MD, Blood Gas Notified Time 550 05/23/18 10:10: POC Glucose 98 Current Medications Acetaminophen (Tylenol) 650 mg PO Q6H PRN PRN PRN Reason: Mild Pain (1-3)/Temp > 100.7 F Albuterol/Ipratropium (Duoneb) 3 ml INHALATION Q4HWA.RT PABLO Last Admin: 05/23/18 06:53 Dose: 3 ml Chlorhexidine Gluconate () 1 each TOPICAL DAILY PABLO Last Admin: 04/17/19 10:00 Dose: 1 each Dextrose (D50w Syringe) 0 gm IV X1 PRN; Protocol PRN Reason: Hypoglycemia Glucagon () 1 mg IM .X1 PRN PRN Reason: Hypoglycemia Vancomycin IV Pharmacy to Dose (1 ea/ Sodium Chloride) 500 mls @ 250 mls/hr IV X1 PRN; Protocol PRN Reason: Rx to Dose Piperacillin Sod/Tazobactam (Sod 3.375 gm/ Sodium Chloride) 50 mls @ 12.5 mls/hr IV Q8 [facility] [place] Last Admin: 05/23/18 05:30 Dose: 12.5 mls/hr Vancomycin HCl () 500 mg in 100 mls @ 100 mls/hr IV Q12H [facility] [place] Last Admin: 05/23/18 01:33 Dose: 100 mls/hr Sodium Chloride () 1,000 mls @ 125 mls/hr IV .Q8H [facility] [place] Last Admin: 05/23/18 07:16 Dose: 125 mls/hr Lactulose (Chronulac, Cephulac) 10 gm GT BID [facility] [place] Last Admin: 05/22/18 21:12 Dose: 10 gm Magnesium Hydroxide (Milk Of Magnesia) 30 ml PO DAILY PRN PRN PRN Reason: Constipation Methylprednisolone (Solu-Medrol) 40 mg IV Q8 [facility] [place] Last Admin: 05/23/18 05:30 Dose: 40 mg Nicotine (Nicoderm Cq (Pbkc)) 21 mg TRANSDERM. DAILY [facility] [place] Last Admin: 05/23/18 10:00 Dose: 21 mg Ondansetron HCl (Zofran) 4 mg IV Q8H PRN PRN PRN Reason: NAUSEA Sodium Chloride () 10 - 40 ml IV UD PRN PRN Reason: MULTILUMEN/HICMAN CATH FLUSH Last Admin: 05/23/18 05:31 Dose: 10 ml Medical Necessity - Tobacco Use Smoking Status: Current every day smoker Tobacco Use: Cigarettes Assessment/Plan All Active Problems Septic shock (Acute) SVT (supraventricular tachycardia) (Acute) Atrial fibrillation (Acute) Acute respiratory failure with hypoxia (Acute) 1. Acute hypoxic and hypercapnic respiratory failure improved and now extubated 2/2 PNA, COPD ex +/- bronchiectasis wean oxygen as tolerated pulm toilet 2. Suspected MRSA pneumonia ongoing awaiting on final cultures continue broad-spectrum abx 3. AECOPD: improving continue BDs and IV steroids 4. Septic shock POA improving 2/2 pneumonia received IVF 3occ/kg 5. Metabolic encephalopathy likely 2/2 CO2 narcosis ammonia slightly elevated, but doubt a significant contributer likely also complicated by narcotics that he takes chronically 6. Coagulopathy likely due to Xarelto + septic shock monitor 7. DVT proph: anticoagulated Code Visit Inpatient E&M: 61897 Subs Hosp L3
--- NOTE | 2018-05-23 10:58 | PN_ITS ---
Patient Problems: Active and Suspected Problems Septic shock (Acute) Pneumonia due to methicillin resistant Staphylococcus aureus (MRSA) (Suspected) Subjective: Extubated today. Groggy per nursing. Patient denies any SOB. Vitals/I&O's: Vital Signs Temp Pulse Resp BP Pulse Ox 37.1 C 97 23 H 128/68 H 96 05/23/18 08:00 05/23/18 09:00 05/23/18 09:00 05/23/18 09:00 05/23/18 09:00 Oxygen Flow Rate (L/min) 4 Oxygen Delivery Method Nasal Cannula Weight: 67.4 kg Body Mass Index (BMI) 22.1 Intake and Output for Last 24 Hours 05/21/18 05/22/18 05/23/18 23:59 23:59 23:59 Intake Total 1327.8 / 1327.8 1715.5 / 1715.5 Output Total 200 / 200 750 / 750 Balance 1127.8 / 1127.8 965.5 / 965.5 General: - - groggy, afebrile, no respiratory distress. HEENT: Atraumatic, Normocephalic, - - no sleral icterus Oral: Moist Mucosa, No Gingival or Mucosal Lesions/ Ulcerations Neck: No Nodes, Thyroid Normal Size and Texture Lungs: Diminished, - - coarse BS bilaterally. Cardiovascular: Regular rate, Regular Rhythm, Normal S1, Normal S2, No murmurs Abdomen: Bowel Sounds Present, Soft, Non Tender, Non-Distended, No Hepato- splenomegaly Extremities: No edema, No Calf Tenderness Skin: No rashes, No breakdown Musculoskeletal: Cachexia, Muscle Wasting Neurological: - - hypperreflexia left patella. no clonus. Psych/Mental Status: Appropriate, Flat Affect Microbiology Past 72 Hours 05/22/18 11:30 Transtracheal Aspirate Gram Stain - Final Laboratory Results 05/22/18 10:35: Sodium Cancelled, Potassium Cancelled, Chloride Cancelled, Carbon Dioxide Cancelled, Anion Gap Cancelled, BUN Cancelled, Creatinine Cancelled, Estim Creat Clear Calc Cancelled, Est GFR (MDRD) Af Amer Cancelled, Est GFR (MDRD) Non-Af Cancelled, BUN/Creatinine Ratio Cancelled, Glucose Cancelled, Calcium Cancelled, Total Bilirubin Cancelled, AST Cancelled, ALT Cancelled, Alkaline Phosphatase Cancelled, Troponin I Cancelled, Total Protein Cancelled, Albumin Cancelled, Globulin Cancelled, Albumin/Globulin Ratio Cancelled 05/22/18 10:35: WBC 24.8 H, RBC 5.54, Hgb 14.1, Hct 46.9, MCV 84.7, MCH 25.5 L, MCHC 30.1 L, RDW 15.6 H, RDW Differential 48.3 H, Plt Count 320, MPV 8.5, Immature Gran % (Auto) 0.500, Neut % (Auto) 91.8 H, Lymph % (Auto) 2.7 L, Early % (Auto) 5.0, Eos % (Auto) 0.0, Baso % (Auto) 0.0, Absolute Neuts (auto) 22.8 H, Absolute Lymphs (auto) 0.68 L, Total Counted Not Reportable, Differential Comment COMMENT 05/22/18 10:35: PT 25.0 H, INR 2.3, APTT 36.1 05/22/18 11:02: Specimen Type ART, Sample Site R Radial, pH 7.18 L*, Bicarbonate Actual 38.2 H, POC Total CO2 41, Base Excess 10 H, O2 Saturation 100 H, O2 % 100, ABG pCO2 101.4 H*, ABG pO2 407 H*, Silver Test POS, Respiration Rate 16, O2 Delivery Device Vent, Vent Mode A-C, Tidal Volume 450, POC PEEP 5, Blood Gas Notified Whom ED , Blood Gas Notified Time 1055 05/22/18 11:10: Ammonia 45.0 H 05/22/18 11:10: Lactic Acid 2.0 05/22/18 11:20: Sodium 134 L, Potassium 6.1 H*, Chloride 98, Carbon Dioxide 36.0 H, Anion Gap 0 L, BUN 18, Creatinine 1.19, Estim Creat Clear Calc 52.86, Est GFR (MDRD) Af Amer 78, Est GFR (MDRD) Non-Af 65, BUN/Creatinine Ratio 15.1, Glucose 163 H, Calcium 7.8 L, Total Bilirubin 1.00, AST 64 H, ALT 41, Alkaline Phosphatase 149 H, Troponin I < 0.015, Total Protein 6.6, Albumin 2.2 L, Globulin 4.4 H, Albumin/Globulin Ratio 0.5 L 05/22/18 11:20: Urine Color Yellow, Urine Clarity Sl. Cloudy, Urine pH 5.0, Ur Specific [place] 1.025, Urine Protein 30 H, Urine Glucose (UA) Normal, Urine Ketones 5 H, Urine Occult Blood 50 H, Urine Nitrite Negative, Urine Bilirubin 3 H, Urine Urobilinogen 12 H, Ur Leukocyte Esterase 25 H, Urine RBC 0-5 SEEN, Urine WBC 0-5 SEEN, Ur Squamous Epith Cells 0 SEEN, Urine Bacteria 0 SEEN, Hyaline Casts 5-10 SEEN, Urine Mucus 0 SEEN 05/22/18 15:05: WBC 21.6 H, RBC 4.39 L, Hgb 11.2 L, Hct 37.6 L, MCV 85.6, MCH 25.5 L, MCHC 29.8 L, RDW 15.4 H, RDW Differential 48.7 H, Plt Count 136 L, MPV 8.5, Immature Gran % (Auto) 0.200, Neut % (Auto) 89.6 H, Lymph % (Auto) 3.4 L, Early % (Auto) 6.7, Eos % (Auto) 0.0, Baso % (Auto) 0.1, Absolute Neuts (auto) 19.4 H, Absolute Lymphs (auto) 0.73 L, Total Counted Not Reportable 05/22/18 15:05: Sodium 137, Potassium 4.9, Chloride 107, Carbon Dioxide 28.0, Anion Gap 2 L, BUN 17, Creatinine 0.90, Estim Creat Clear Calc 69.89, Est GFR (MDRD) Af Amer 108, Est GFR (MDRD) Non-Af 89, BUN/Creatinine Ratio 18.9, Glucose 144 H, Calcium 6.6 L, Total Bilirubin 1.40 H, AST 53 H, ALT 34, Alkaline Phosphatase 122 H, Total Protein 5.3 L, Albumin 1.9 L, Globulin 3.4, Albumin/Globulin Ratio 0.6 L 05/22/18 15:05: Ammonia 36.0 H 05/22/18 15:42: Specimen Type ART, Sample Site R Brachial, pH 7.19 L*, Bicarbonate Actual 27.4 H, POC Total CO2 30, Base Excess -1, O2 Saturation 83 L, O2 % 40, ABG pCO2 72.5 H*, ABG pO2 61 L, Respiration Rate 16, O2 Delivery Device Vent, Minute Volume 7.00, Vent Mode A-C, Tidal Volume 450, POC PEEP 5, Blood Gas Notified Whom ICU MD, Blood Gas Notified Time 1540 05/22/18 16:58: POC Glucose 115 H 05/22/18 23:57: POC Glucose 91 05/23/18 04:10: WBC 18.5 H, RBC 5.01, Hgb 12.4 L, Hct 41.6, MCV 83.0, MCH 24.8 L , MCHC 29.8 L, RDW 15.9 H, RDW Differential 47.2 H, Plt Count 191, MPV 9.1, Immature Gran % (Auto) 0.300, Neut % (Auto) 94.3 H, Lymph % (Auto) 3.6 L, Early % (Auto) 1.8, Eos % (Auto) 0.0, Baso % (Auto) 0.0, Absolute Neuts (auto) 17.5 H, Absolute Lymphs (auto) 0.66 L, Total Counted Not Reportable 05/23/18 04:10: Sodium 137, Potassium 4.6, Chloride 106, Carbon Dioxide 28.0, Anion Gap 3 L, BUN 21 H, Creatinine 0.74, Estim Creat Clear Calc 66.20, Est GFR (MDRD) Af Amer 136, Est GFR (MDRD) Non-Af 112, BUN/Creatinine Ratio 28.5 H, Glucose 104, Calcium 7.6 L 05/23/18 05:56: Specimen Type ART, Sample Site R Radial, pH 7.33 L, Bicarbonate Actual 24.1, POC Total CO2 25, Base Excess -2, O2 Saturation 92 L, O2 % 35, ABG pCO2 45.3 H, ABG pO2 68 L, Silver Test POS, O2 Delivery Device Vent, Vent Mode CPAP PS, POC PEEP 5, POC Pressure Suppt 5, Blood Gas Notified Whom ICU MD, Blood Gas Notified Time 550 05/23/18 10:10: POC Glucose 98 Current Medications Acetaminophen (Tylenol) 650 mg PO Q6H PRN PRN PRN Reason: Mild Pain (1-3)/Temp > 100.7 F Albuterol/Ipratropium (Duoneb) 3 ml INHALATION Q4HWA.RT PABLO Last Admin: 05/23/18 06:53 Dose: 3 ml Chlorhexidine Gluconate () 1 each TOPICAL DAILY PABLO Last Admin: 04/17/19 10:00 Dose: 1 each Dextrose (D50w Syringe) 0 gm IV X1 PRN; Protocol PRN Reason: Hypoglycemia Glucagon () 1 mg IM .X1 PRN PRN Reason: Hypoglycemia Vancomycin IV Pharmacy to Dose (1 ea/ Sodium Chloride) 500 mls @ 250 mls/hr IV X1 PRN; Protocol PRN Reason: Rx to Dose Piperacillin Sod/Tazobactam (Sod 3.375 gm/ Sodium Chloride) 50 mls @ 12.5 mls/hr IV Q8 [facility] Last Admin: 05/23/18 05:30 Dose: 12.5 mls/hr Vancomycin HCl () 500 mg in 100 mls @ 100 mls/hr IV Q12H [facility] [place] Last Admin: 05/23/18 01:33 Dose: 100 mls/hr Sodium Chloride () 1,000 mls @ 125 mls/hr IV .Q8H [facility] [place] Last Admin: 05/23/18 07:16 Dose: 125 mls/hr Lactulose (Chronulac, Cephulac) 10 gm GT BID [facility] Last Admin: 05/22/18 21:12 Dose: 10 gm Magnesium Hydroxide (Milk Of Magnesia) 30 ml PO DAILY PRN PRN PRN Reason: Constipation Methylprednisolone (Solu-Medrol) 40 mg IV Q8 [facility] Last Admin: 05/23/18 05:30 Dose: 40 mg Nicotine (Nicoderm Cq (Pbkc)) 21 mg TRANSDERM. DAILY [facility] Last Admin: 05/23/18 10:00 Dose: 21 mg Ondansetron HCl (Zofran) 4 mg IV Q8H PRN PRN PRN Reason: NAUSEA Sodium Chloride () 10 - 40 ml IV UD PRN PRN Reason: MULTILUMEN/HICMAN CATH FLUSH Last Admin: 05/23/18 05:31 Dose: 10 ml Medical Necessity - Tobacco Use Smoking Status: Current every day smoker Tobacco Use: Cigarettes Assessment/Plan All Active Problems Septic shock (Acute) SVT (supraventricular tachycardia) (Acute) Atrial fibrillation (Acute) Acute respiratory failure with hypoxia (Acute) 1. Acute hypoxic and hypercapnic respiratory failure * improved and now extubated * 2/2 PNA, COPD ex +/- bronchiectasis * wean oxygen as tolerated * pulm toilet 2. Suspected MRSA pneumonia * ongoing * awaiting on final cultures * continue broad-spectrum abx 3. AECOPD: * improving * continue BDs and IV steroids 4. Septic shock * POA * improving * 2/2 pneumonia * received IVF 3occ/kg 5. Metabolic encephalopathy * likely 2/2 CO2 narcosis * ammonia slightly elevated, but doubt a significant contributer * likely also complicated by narcotics that he takes chronically 6. Coagulopathy * likely due to Xarelto + septic shock * monitor 7. DVT proph: anticoagulated Code Visit Inpatient E&M: 52274 Subs Hosp L3
[2018-05-23] MEDS: Lactulose 20 GM/30 ML UDC 10 GM PO (12:24)
[2018-05-23 12:30] LABS: Bedside Glucose 98 mg/dL (70-110)
[2018-05-23 13:11] LABS: Base Excess 1 mmol/L (-2 to +2); Bicarbonate 27.5 mmol/L (22-26); Blood Gas Specimen Type ART; O2 Delivery Device Nasal Can; PO2 86 mmHG (75-100); SITE R Brachial; SO2 95 % (95-99); Time Given 1124; Total Carbon Dioxide 29 mmol/L; pCO2 56.1 mmHg (35-45)
--- NOTE | 2018-05-23 13:36 | CPS ---
Informed Pt that he will need to wear the Bipap while sleeping, which Pt understands. He was sitting up in chair, so Bipap was placed on standby at this time.
--- NOTE | 2018-05-23 15:28 | CHAPLAIN ---
Type of Pastoral Visit _x__ Initial Visit ___ Follow-up Visit ___ On-call Visit ___ General Patient Visit ___ Spiritual Assessment ___ Family Conference ___ Bereavement ___ Rapid Response ___ Code Blue ___ Other (describe below) Pastoral Care Referral From ___ Patient _x__ Family ___ Nurse ___ Physician ___ Corporate Security Manager ___ Water Tanker Driver ___ Other (describe below) Sacrament/Intervention _x__ Active listening ___ Anointing ___ Congregational ___ Bereavement ___ Communion ___ Yolanda exploration ___ ___ Life review _x__ Prayer ___ Reconciliation ___ Sacrament of Sick _x__ Supportive presence ___ Wedding ___ Other (describe below) Pastoral Comments patient was sleeping but talked with spouse and sister of pt; they relate other family concerns and seek prayer and spiritual care support
[2018-05-23] MEDS: Acetaminophen 325 MG Tablet 650 MG PO (15:47)
[2018-05-23 16:36] LABS: Bedside Glucose 109 mg/dL (70-110)
[2018-05-23 16:40] LABS: Bedside Glucose 172 mg/dL (70-110)
[2018-05-23] MEDS: oxyCODONE 5 MG Tablet PO ×2 (17:06→23:24)
[2018-05-23 21:30] LABS: Bedside Glucose 115 mg/dL (70-110)
[2018-05-23] MEDS: Ondansetron 4 MG/2 ML Vial IV (22:50)
--- NOTE | 2018-05-23 23:30 | CPS ---
Pt nauseous at this time
[2018-05-24] VITALS (21 sets, daily range): BP systolic 138–169; BP diastolic 75–86; PULSE 73–105; RESP 12–29; TEMP 36.2–37.2; O2SAT 92–100
[2018-05-24] MEDS: Vancomycin IV 500 MG/100 ML BAG 100 MG IV ×2 (01:57→13:02)
[2018-05-24] MEDS: CHLORHEXIDINE GLUC 2% CLOTH 1 EACH TOWELETTE TOPICAL (01:59)
[2018-05-24 05:24] LABS: Anion Gap 3 (5-15); BUN 25 mg/dL (7-18); BUN/Creat Ratio 38.7 RATIO (10-20); Calcium,Total 8.1 mg/dL (8.5-10.1); Chloride 110 mmol/L (98-107); Creatinine, Serum 0.65 mg/dL (0.70-1.30); EST Glomerular Filtration Rate 131 mL/min (>60); Est Glom Filt Rate - Afr Amer 158 mL/min (>60); Glucose 140 mg/dL (74-106); Potassium 4.3 mmol/L (3.5-5.1); Sodium Level 143 mmol/L (136-145)
[2018-05-24 05:25] LABS: Absolute Lymphocyte Count 0.27 X10^3/ul (0.83-4.51); Absolute Neutrophil Count 7.2 X10^3/uL (2.0-7.7); Hemoglobin 12.1 g/dl (13.0-16.5); Lymphocyte # 0.27 X10^3/ul (4.0); Lymphocyte % 3.5 % (19-41); Mean Corpuscular Hgb 25.5 pg (27.0-32.0); Mean Corpuscular Volume 82.1 fL (80-94); Mean Platelet Vol. 8.8 fl (6.2-12.0); Monocyte# 0.18 X10^3/uL; Monocyte% 2.4 % (0-10); Neutrophil # 7.15 X10^3/uL (2.7-7.7); Platelet Count 138 K/mm3 (150-450); RBC Distribution Width CV 15.8 % (11.6-14.6); RBC Distribution Width SD 46.7 fl (35.1-43.9); Red Blood Count 4.75 M/mm3 (4.6-6.2); White Blood Count 7.6 K/mm3 (4.4-11.0)
[2018-05-24 05:32] LABS: International Normalized Ratio 1.4; Prothrombin Time (Protime)PT. 16.8 SECONDS (11.7-14.9)
[2018-05-24] MEDS: oxyCODONE 5 MG Tablet PO ×3 (05:54→19:11)
[2018-05-24 06:17] LABS: Differential Indicated SCAN CRITERIA MET; POSITIVE COUNT NO; POSITIVE DIFFERENTIAL YES; POSITIVE MORPHOLOGY NO
[2018-05-24 06:50] LABS: Differential Comment SCANNED
[2018-05-24] MEDS: Ipratropium/Albuterol Sulfate 3 ML AMPUL.NEB INHALATION ×4 (06:51→19:40)
--- NOTE | 2018-05-24 07:11 | PCM.PN.INT ---
Subjective: Patient did okay overnight. Patient reports generalized body aches overnight and this morning. Patient did have an emesis overnight, but denies any nausea at this time. Patient was compliant with BiPAP therapy while sleeping. This was initiated yesterday when patient was found to have increasing CO2 retention with sleep. General: Alert, Oriented x3, Cooperative, No apparent distress, - - Appears older than stated age. No conversational dyspnea. HEENT: Atraumatic, PERRLA, EOMI, Normocephalic, - - Slight scleral injection Oral: Moist Mucosa, No Gingival or Mucosal Lesions/ Ulcerations Neck: Supple, No JVD, No Nodes, Trachea Midline Lungs: No wheeze, No rales, Diminished, Rhonchi - Right base, - - Symmetric expansion Cardiovascular: Regular rate, Regular Rhythm, Normal S1, Normal S2, No murmurs, No rub noted, No Gallop Abdomen: Bowel Sounds Present, Soft, Non Tender, Non-Distended Extremities: No clubbing, No cyanosis, Edema Skin: - - No significant change compared to previous Musculoskeletal: No Tenderness to Palpation of Joints or Extremities Lymphatic: No Cervical, Supraclavicular, or Inguinal Adenopathy Neurological: Cranial nerves II-XII grossly intact, Neuro grossly intact, Motor Exam 5/5 strength throughout Psych/Mental Status: Alert and oriented to time, place, person, mood and affect Vital Signs Temp Pulse Resp BP Pulse Ox 37.0 C 87 25 H 156/75 H 96 05/24/18 07:00 05/24/18 07:00 05/24/18 07:00 05/24/18 07:00 05/24/18 07:00 Oxygen Flow Rate (L/min) 3 Oxygen Delivery Method Nasal Cannula Weight: 69.6 kg Body Mass Index (BMI) 22.1 Intake and Output for Last 24 Hours 05/22/18 05/23/18 05/24/18 23:59 23:59 23:59 Intake Total 1327.8 / 1327.8 4524.0 / 4524.0 901 / 901 Output Total 200 / 200 2100 / 2100 225 / 225 Balance 1127.8 / 1127.8 2424.0 / 2424.0 676 / 676 Labs (Last 48 Hours) 05/22/18 05/22/18 05/22/18 10:30 10:35 10:35 WBC 24.8 H RBC 5.54 Hgb 14.1 Hct 46.9 MCV 84.7 MCH 25.5 L MCHC 30.1 L RDW 15.6 H RDW Differential 48.3 H Plt Count 320 MPV 8.5 Immature Gran % (Auto) 0.500 Neut % (Auto) 91.8 H Lymph % (Auto) 2.7 L Petroleum % (Auto) 5.0 Eos % (Auto) 0.0 Baso % (Auto) 0.0 Absolute Neuts (auto) 22.8 H Absolute Lymphs (auto) 0.68 L Total Counted Not Reportable Differential Comment COMMENT PT INR APTT Specimen Type Sample Site pH Bicarbonate Actual POC Total CO2 Base Excess O2 Saturation O2 % ABG pCO2 ABG pO2 Silver Test Respiration Rate O2 Delivery Device Liter Flow Minute Volume Vent Mode Tidal Volume POC PEEP POC Pressure Suppt Blood Gas Notified Whom Blood Gas Notified Time Sodium Cancelled Potassium Cancelled Chloride Cancelled Carbon Dioxide Cancelled Anion Gap Cancelled BUN Cancelled Creatinine Cancelled Estim Creat Clear Calc Cancelled Est GFR (MDRD) Af Amer Cancelled Est GFR (MDRD) Non-Af Cancelled BUN/Creatinine Ratio Cancelled Glucose Cancelled Lactic Acid Calcium Cancelled Total Bilirubin Cancelled AST Cancelled ALT Cancelled Alkaline Phosphatase Cancelled Ammonia Troponin I Cancelled Total Protein Cancelled Albumin Cancelled Globulin Cancelled Albumin/Globulin Ratio Cancelled Urine Color Urine Clarity Urine pH Ur Specific [place] Urine Protein Urine Glucose (UA) Urine Ketones Urine Occult Blood Urine Nitrite Urine Bilirubin Urine Urobilinogen Ur Leukocyte Esterase Urine RBC Urine WBC Ur Squamous Epith Cells Urine Bacteria Hyaline Casts Urine Mucus POC Glucose 172 H 05/22/18 05/22/18 05/22/18 10:35 11:02 11:10 WBC RBC Hgb Hct MCV MCH MCHC RDW RDW Differential Plt Count MPV Immature Gran % (Auto) Neut % (Auto) Lymph % (Auto) Petroleum % (Auto) Eos % (Auto) Baso % (Auto) Absolute Neuts (auto) Absolute Lymphs (auto) Total Counted Differential Comment PT 25.0 H INR 2.3 APTT 36.1 Specimen Type ART Sample Site R Radial pH 7.18 L* Bicarbonate Actual 38.2 H POC Total CO2 41 Base Excess 10 H O2 Saturation 100 H O2 % 100 ABG pCO2 101.4 H* ABG pO2 407 H* Silver Test POS Respiration Rate 16 O2 Delivery Device Vent Liter Flow Minute Volume Vent Mode A-C Tidal Volume 450 POC PEEP 5 POC Pressure Suppt Blood Gas Notified Whom ED MD Blood Gas Notified Time 1055 Sodium Potassium Chloride Carbon Dioxide Anion Gap BUN Creatinine Estim Creat Clear Calc Est GFR (MDRD) Af Amer Est GFR (MDRD) Non-Af BUN/Creatinine Ratio Glucose Lactic Acid Calcium Total Bilirubin AST ALT Alkaline Phosphatase Ammonia 45.0 H Troponin I Total Protein Albumin Globulin Albumin/Globulin Ratio Urine Color Urine Clarity Urine pH Ur Specific [place] Urine Protein Urine Glucose (UA) Urine Ketones Urine Occult Blood Urine Nitrite Urine Bilirubin Urine Urobilinogen Ur Leukocyte Esterase Urine RBC Urine WBC Ur Squamous Epith Cells Urine Bacteria Hyaline Casts Urine Mucus POC Glucose 05/22/18 05/22/18 05/22/18 11:10 11:20 11:20 WBC RBC Hgb Hct MCV MCH MCHC RDW RDW Differential Plt Count MPV Immature Gran % (Auto) Neut % (Auto) Lymph % (Auto) Petroleum % (Auto) Eos % (Auto) Baso % (Auto) Absolute Neuts (auto) Absolute Lymphs (auto) Total Counted Differential Comment PT INR APTT Specimen Type Sample Site pH Bicarbonate Actual POC Total CO2 Base Excess O2 Saturation O2 % ABG pCO2 ABG pO2 Silver Test Respiration Rate O2 Delivery Device Liter Flow Minute Volume Vent Mode Tidal Volume POC PEEP POC Pressure Suppt Blood Gas Notified Whom Blood Gas Notified Time Sodium 134 L Potassium 6.1 H* Chloride 98 Carbon Dioxide 36.0 H Anion Gap 0 L BUN 18 Creatinine 1.19 Estim Creat Clear Calc 52.86 Est GFR (MDRD) Af Amer 78 Est GFR (MDRD) Non-Af 65 BUN/Creatinine Ratio 15.1 Glucose 163 H Lactic Acid 2.0 Calcium 7.8 L Total Bilirubin 1.00 AST 64 H ALT 41 Alkaline Phosphatase 149 H Ammonia Troponin I < 0.015 Total Protein 6.6 Albumin 2.2 L Globulin 4.4 H Albumin/Globulin Ratio 0.5 L Urine Color Yellow Urine Clarity Sl. Cloudy Urine pH 5.0 Ur Specific [place] 1.025 Urine Protein 30 H Urine Glucose (UA) Normal Urine Ketones 5 H Urine Occult Blood 50 H Urine Nitrite Negative Urine Bilirubin 3 H Urine Urobilinogen 12 H Ur Leukocyte Esterase 25 H Urine RBC 0-5 SEEN Urine WBC 0-5 SEEN Ur Squamous Epith Cells 0 SEEN Urine Bacteria 0 SEEN Hyaline Casts 5-10 SEEN Urine Mucus 0 SEEN POC Glucose 05/22/18 05/22/18 05/22/18 15:05 15:05 15:05 WBC 21.6 H RBC 4.39 L Hgb 11.2 L Hct 37.6 L MCV 85.6 MCH 25.5 L MCHC 29.8 L RDW 15.4 H RDW Differential 48.7 H Plt Count 136 L MPV 8.5 Immature Gran % (Auto) 0.200 Neut % (Auto) 89.6 H Lymph % (Auto) 3.4 L Petroleum % (Auto) 6.7 Eos % (Auto) 0.0 Baso % (Auto) 0.1 Absolute Neuts (auto) 19.4 H Absolute Lymphs (auto) 0.73 L Total Counted Not Reportable Differential Comment PT INR APTT Specimen Type Sample Site pH Bicarbonate Actual POC Total CO2 Base Excess O2 Saturation O2 % ABG pCO2 ABG pO2 Silver Test Respiration Rate O2 Delivery Device Liter Flow Minute Volume Vent Mode Tidal Volume POC PEEP POC Pressure Suppt Blood Gas Notified Whom Blood Gas Notified Time Sodium 137 Potassium 4.9 Chloride 107 Carbon Dioxide 28.0 Anion Gap 2 L BUN 17 Creatinine 0.90 Estim Creat Clear Calc 69.89 Est GFR (MDRD) Af Amer 108 Est GFR (MDRD) Non-Af 89 BUN/Creatinine Ratio 18.9 Glucose 144 H Lactic Acid Calcium 6.6 L Total Bilirubin 1.40 H AST 53 H ALT 34 Alkaline Phosphatase 122 H Ammonia 36.0 H Troponin I Total Protein 5.3 L Albumin 1.9 L Globulin 3.4 Albumin/Globulin Ratio 0.6 L Urine Color Urine Clarity Urine pH Ur Specific [place] Urine Protein Urine Glucose (UA) Urine Ketones Urine Occult Blood Urine Nitrite Urine Bilirubin Urine Urobilinogen Ur Leukocyte Esterase Urine RBC Urine WBC Ur Squamous Epith Cells Urine Bacteria Hyaline Casts Urine Mucus POC Glucose 05/22/18 05/22/18 05/22/18 15:42 16:58 23:57 WBC RBC Hgb Hct MCV MCH MCHC RDW RDW Differential Plt Count MPV Immature Gran % (Auto) Neut % (Auto) Lymph % (Auto) Petroleum % (Auto) Eos % (Auto) Baso % (Auto) Absolute Neuts (auto) Absolute Lymphs (auto) Total Counted Differential Comment PT INR APTT Specimen Type ART Sample Site R Brachial pH 7.19 L* Bicarbonate Actual 27.4 H POC Total CO2 30 Base Excess -1 O2 Saturation 83 L O2 % 40 ABG pCO2 72.5 H* ABG pO2 61 L Silver Test Respiration Rate 16 O2 Delivery Device Vent Liter Flow Minute Volume 7.00 Vent Mode A-C Tidal Volume 450 POC PEEP 5 POC Pressure Suppt Blood Gas Notified Whom ICU MD Blood Gas Notified Time 1540 Sodium Potassium Chloride Carbon Dioxide Anion Gap BUN Creatinine Estim Creat Clear Calc Est GFR (MDRD) Af Amer Est GFR (MDRD) Non-Af BUN/Creatinine Ratio Glucose Lactic Acid Calcium Total Bilirubin AST ALT Alkaline Phosphatase Ammonia Troponin I Total Protein Albumin Globulin Albumin/Globulin Ratio Urine Color Urine Clarity Urine pH Ur Specific [place] Urine Protein Urine Glucose (UA) Urine Ketones Urine Occult Blood Urine Nitrite Urine Bilirubin Urine Urobilinogen Ur Leukocyte Esterase Urine RBC Urine WBC Ur Squamous Epith Cells Urine Bacteria Hyaline Casts Urine Mucus POC Glucose 115 H 91 05/23/18 05/23/18 05/23/18 04:10 04:10 05:56 WBC 18.5 H RBC 5.01 Hgb 12.4 L Hct 41.6 MCV 83.0 MCH 24.8 L MCHC 29.8 L RDW 15.9 H RDW Differential 47.2 H Plt Count 191 MPV 9.1 Immature Gran % (Auto) 0.300 Neut % (Auto) 94.3 H Lymph % (Auto) 3.6 L Petroleum % (Auto) 1.8 Eos % (Auto) 0.0 Baso % (Auto) 0.0 Absolute Neuts (auto) 17.5 H Absolute Lymphs (auto) 0.66 L Total Counted Not Reportable Differential Comment PT INR APTT Specimen Type ART Sample Site R Radial pH 7.33 L Bicarbonate Actual 24.1 POC Total CO2 25 Base Excess -2 O2 Saturation 92 L O2 % 35 ABG pCO2 45.3 H ABG pO2 68 L Silver Test POS Respiration Rate O2 Delivery Device Vent Liter Flow Minute Volume Vent Mode CPAP PS Tidal Volume POC PEEP 5 POC Pressure Suppt 5 Blood Gas Notified Whom ICU MD Blood Gas Notified Time 550 Sodium 137 Potassium 4.6 Chloride 106 Carbon Dioxide 28.0 Anion Gap 3 L BUN 21 H Creatinine 0.74 Estim Creat Clear Calc 66.20 Est GFR (MDRD) Af Amer 136 Est GFR (MDRD) Non-Af 112 BUN/Creatinine Ratio 28.5 H Glucose 104 Lactic Acid Calcium 7.6 L Total Bilirubin AST ALT Alkaline Phosphatase Ammonia Troponin I Total Protein Albumin Globulin Albumin/Globulin Ratio Urine Color Urine Clarity Urine pH Ur Specific [place] Urine Protein Urine Glucose (UA) Urine Ketones Urine Occult Blood Urine Nitrite Urine Bilirubin Urine Urobilinogen Ur Leukocyte Esterase Urine RBC Urine WBC Ur Squamous Epith Cells Urine Bacteria Hyaline Casts Urine Mucus POC Glucose 05/23/18 05/23/18 05/23/18 10:10 11:26 12:18 WBC RBC Hgb Hct MCV MCH MCHC RDW RDW Differential Plt Count MPV Immature Gran % (Auto) Neut % (Auto) Lymph % (Auto) Petroleum % (Auto) Eos % (Auto) Baso % (Auto) Absolute Neuts (auto) Absolute Lymphs (auto) Total Counted Differential Comment PT INR APTT Specimen Type ART Sample Site R Brachial pH 7.30 L Bicarbonate Actual 27.5 H POC Total CO2 29 Base Excess 1 O2 Saturation 95 O2 % ABG pCO2 56.1 H ABG pO2 86 Silver Test Respiration Rate O2 Delivery Device Nasal Can Liter Flow 4.0 Minute Volume Vent Mode Tidal Volume POC PEEP POC Pressure Suppt Blood Gas Notified Whom ICU MD Blood Gas Notified Time 1124 Sodium Potassium Chloride Carbon Dioxide Anion Gap BUN Creatinine Estim Creat Clear Calc Est GFR (MDRD) Af Amer Est GFR (MDRD) Non-Af BUN/Creatinine Ratio Glucose Lactic Acid Calcium Total Bilirubin AST ALT Alkaline Phosphatase Ammonia Troponin I Total Protein Albumin Globulin Albumin/Globulin Ratio Urine Color Urine Clarity Urine pH Ur Specific [place] Urine Protein Urine Glucose (UA) Urine Ketones Urine Occult Blood Urine Nitrite Urine Bilirubin Urine Urobilinogen Ur Leukocyte Esterase Urine RBC Urine WBC Ur Squamous Epith Cells Urine Bacteria Hyaline Casts Urine Mucus POC Glucose 98 98 05/23/18 05/23/18 05/24/18 16:29 21:15 05:00 WBC 7.6 RBC 4.75 Hgb 12.1 L Hct 39.0 L MCV 82.1 MCH 25.5 L MCHC 31.0 L RDW 15.8 H RDW Differential 46.7 H Plt Count 138 L MPV 8.8 Immature Gran % (Auto) 0.100 Neut % (Auto) 94.0 H Lymph % (Auto) 3.5 L Petroleum % (Auto) 2.4 Eos % (Auto) 0.0 Baso % (Auto) 0.0 Absolute Neuts (auto) 7.2 Absolute Lymphs (auto) 0.27 L Total Counted Not Reportable Differential Comment SCANNED PT INR APTT Specimen Type Sample Site pH Bicarbonate Actual POC Total CO2 Base Excess O2 Saturation O2 % ABG pCO2 ABG pO2 Silver Test Respiration Rate O2 Delivery Device Liter Flow Minute Volume Vent Mode Tidal Volume POC PEEP POC Pressure Suppt Blood Gas Notified Whom Blood Gas Notified Time Sodium Potassium Chloride Carbon Dioxide Anion Gap BUN Creatinine Estim Creat Clear Calc Est GFR (MDRD) Af Amer Est GFR (MDRD) Non-Af BUN/Creatinine Ratio Glucose Lactic Acid Calcium Total Bilirubin AST ALT Alkaline Phosphatase Ammonia Troponin I Total Protein Albumin Globulin Albumin/Globulin Ratio Urine Color Urine Clarity Urine pH Ur Specific [place] Urine Protein Urine Glucose (UA) Urine Ketones Urine Occult Blood Urine Nitrite Urine Bilirubin Urine Urobilinogen Ur Leukocyte Esterase Urine RBC Urine WBC Ur Squamous Epith Cells Urine Bacteria Hyaline Casts Urine Mucus POC Glucose 109 115 H 05/24/18 05/24/18 05:00 05:00 WBC RBC Hgb Hct MCV MCH MCHC RDW RDW Differential Plt Count MPV Immature Gran % (Auto) Neut % (Auto) Lymph % (Auto) Petroleum % (Auto) Eos % (Auto) Baso % (Auto) Absolute Neuts (auto) Absolute Lymphs (auto) Total Counted Differential Comment PT 16.8 H INR 1.4 APTT Specimen Type Sample Site pH Bicarbonate Actual POC Total CO2 Base Excess O2 Saturation O2 % ABG pCO2 ABG pO2 Silver Test Respiration Rate O2 Delivery Device Liter Flow Minute Volume Vent Mode Tidal Volume POC PEEP POC Pressure Suppt Blood Gas Notified Whom Blood Gas Notified Time Sodium 143 Potassium 4.3 Chloride 110 H Carbon Dioxide 30.0 Anion Gap 3 L BUN 25 H Creatinine 0.65 L Estim Creat Clear Calc 67.40 Est GFR (MDRD) Af Amer 158 Est GFR (MDRD) Non-Af 131 BUN/Creatinine Ratio 38.7 H Glucose 140 H Lactic Acid Calcium 8.1 L Total Bilirubin AST ALT Alkaline Phosphatase Ammonia Troponin I Total Protein Albumin Globulin Albumin/Globulin Ratio Urine Color Urine Clarity Urine pH Ur Specific [place] Urine Protein Urine Glucose (UA) Urine Ketones Urine Occult Blood Urine Nitrite Urine Bilirubin Urine Urobilinogen Ur Leukocyte Esterase Urine RBC Urine WBC Ur Squamous Epith Cells Urine Bacteria Hyaline Casts Urine Mucus POC Glucose Microbiology 05/22/18 11:30 Transtracheal Aspirate Gram Stain - Final 04/16/19 11:30 Transtracheal Aspirate Respiratory Culture - Preliminary GNR Possible Haemophilus sp. Staphylococcus aureus 05/22/18 11:20 Urine Catheter - Singer Urine Culture - Preliminary Culture exhibits no growth. Medical Necessity - Tobacco Use Smoking Status: Current every day smoker Tobacco Use: Cigarettes Assessment/Plan All Active Problems Septic shock (Acute) SVT (supraventricular tachycardia) (Acute) Atrial fibrillation (Acute) Acute respiratory failure with hypoxia (Acute) RECOMMENDATIONS: 1. Aggressive pulmonary toileting 2. Continue current bronchodilators, antibiotics and steroids 3. Wean oxygen as tolerated 4. BiPAP with sleep 5. Okay to reinitiate baseline Lasix and Xarelto therapy tomorrow 6. Possible transfer from the intensive care unit later today if doing well IMPRESSIONS: 1. Acute combined respiratory failure secondary to pneumonia in the setting of reported COPD and bronchiectasis Patient appears to be doing well. Patient's bacterial cultures are showing Haemophilus and staph. Sensitivities not available at this time. Patient does have broad-spectrum antibiotics. Likely wean antibiotic spectrum once sensitivities are available. Patient did have significant CO2 retention with sleep. Patient should be continued on BiPAP with any sleep. Wean supplemental oxygen as tolerated. 2. Septic shock Patient with large right-sided pneumonia. Patient has had improvement in blood pressures overnight. No pressors have been required. We will continue to monitor closely. Patient's renal function appears to be doing okay at this time. 3. Coagulopathy Patient on Xarelto therapy at baseline. Unknown baseline creatinine and INR is not a good surrogate. Continue to hold off on anticoagulation for another 24 hours. Likely reinitiate anticoagulation and Lasix therapy tomorrow 4. Probable metabolic encephalopathy Appears to be improving. Patient's ammonia level was elevated. Patient can be placed on lactulose. We will have to monitor patient for possible anoxic brain injury as patient was found hypoxic. 5. Metastatic liver cancer/reported COPD/diabetes mellitus Complicates care, management, recovery and prognosis. Okay to discontinue sliding scale insulin Code Visit Inpatient E&M: 01083 [facility] L3
--- NOTE | 2018-05-24 07:54 | PCM.PN.HOSP ---
Patient Problems: Active and Suspected Problems Pneumonia due to methicillin resistant Staphylococcus aureus (MRSA) (Suspected) Septic shock (Acute) Subjective: breathing well. had some vomiting earlier. Vitals/I&O's: Vital Signs Temp Pulse Resp BP Pulse Ox 37.0 C 87 25 H 156/75 H 96 05/24/18 07:00 05/24/18 07:00 05/24/18 07:00 05/24/18 07:00 05/24/18 07:00 Oxygen Flow Rate (L/min) 3 Oxygen Delivery Method Nasal Cannula Weight: 69.6 kg Body Mass Index (BMI) 22.1 Intake and Output for Last 24 Hours 05/22/18 05/23/18 05/24/18 23:59 23:59 23:59 Intake Total 1327.8 / 1327.8 4524.0 / 4524.0 901 / 901 Output Total 200 / 200 2100 / 2100 225 / 225 Balance 1127.8 / 1127.8 2424.0 / 2424.0 676 / 676 General: Alert, Cooperative, No apparent distress HEENT: Atraumatic, Normocephalic Oral: Moist Mucosa, No Gingival or Mucosal Lesions/ Ulcerations Neck: No Nodes, Thyroid Normal Size and Texture Lungs: Normal air movement, - - coarse breath sounds bilaterally. Cardiovascular: Regular rate, Regular Rhythm, Normal S1, Normal S2, No murmurs Abdomen: Bowel Sounds Present, Soft, Non Tender, Non-Distended, No Hepato-splenomegaly Extremities: No edema, No Calf Tenderness Psych/Mental Status: Normal Affect, Appropriate Microbiology Past 72 Hours 05/22/18 11:30 Transtracheal Aspirate Gram Stain - Final 05/22/18 11:30 Transtracheal Aspirate Respiratory Culture - Preliminary GNR Possible Haemophilus sp. Staphylococcus aureus 05/22/18 11:20 Urine Catheter - Singer Urine Culture - Preliminary Culture exhibits no growth. Laboratory Results 05/22/18 10:30: POC Glucose 172 H 05/23/18 10:10: POC Glucose 98 05/23/18 11:26: Specimen Type ART, Sample Site R Brachial, pH 7.30 L, Bicarbonate Actual 27.5 H, POC Total CO2 29, Base Excess 1, O2 Saturation 95, ABG pCO2 56.1 H, ABG pO2 86, O2 Delivery Device Nasal Can, Liter Flow 4.0, Blood Gas Notified Whom ICU , Blood Gas Notified Time 1124 05/23/18 12:18: POC Glucose 98 05/23/18 16:29: POC Glucose 109 05/23/18 21:15: POC Glucose 115 H 05/24/18 05:00: WBC 7.6, RBC 4.75, Hgb 12.1 L, Hct 39.0 L, MCV 82.1, MCH 25.5 L, MCHC 31.0 L, RDW 15.8 H, RDW Differential 46.7 H, Plt Count 138 L, MPV 8.8, Immature Gran % (Auto) 0.100, Neut % (Auto) 94.0 H, Lymph % (Auto) 3.5 L, [place] % (Auto) 2.4, Eos % (Auto) 0.0, Baso % (Auto) 0.0, Absolute Neuts (auto) 7.2, Absolute Lymphs (auto) 0.27 L, Total Counted Not Reportable, Differential Comment SCANNED 05/24/18 05:00: PT 16.8 H, INR 1.4 05/24/18 05:00: Sodium 143, Potassium 4.3, Chloride 110 H, Carbon Dioxide 30.0, Anion Gap 3 L, BUN 25 H, Creatinine 0.65 L, Estim Creat Clear Calc 67.40, Est GFR (MDRD) Af Amer 158, Est GFR (MDRD) Non-Af 131, BUN/Creatinine Ratio 38.7 H, Glucose 140 H, Calcium 8.1 L Current Medications Acetaminophen (Tylenol) 650 mg PO Q6H PRN PRN PRN Reason: Mild Pain (1-3)/Temp > 100.7 F Last Admin: 05/23/18 15:47 Dose: 650 mg Albuterol/Ipratropium (Duoneb) 3 ml INHALATION Q4HWA.RT PABLO Last Admin: 05/24/18 06:51 Dose: 3 ml Chlorhexidine Gluconate () 1 each TOPICAL DAILY PABLO Last Admin: 05/24/18 01:59 Dose: 1 each Vancomycin IV Pharmacy to Dose (1 ea/ Sodium Chloride) 500 mls @ 250 mls/hr IV X1 PRN; Protocol PRN Reason: Rx to Dose Piperacillin Sod/Tazobactam (Sod 3.375 gm/ Sodium Chloride) 50 mls @ 12.5 mls/hr IV Q8 [facility] Last Admin: 05/24/18 05:55 Dose: 12.5 mls/hr Vancomycin HCl () 500 mg in 100 mls @ 100 mls/hr IV Q12H [facility] Last Admin: 05/24/18 01:57 Dose: 100 mls/hr Sodium Chloride () 1,000 mls @ 125 mls/hr IV .Q8H [facility] Last Admin: 05/24/18 01:57 Dose: Not Given Lactulose (Chronulac, Cephulac) 10 gm PO BID [facility] Last Admin: 05/23/18 20:51 Dose: Not Given Magnesium Hydroxide (Milk Of Magnesia) 30 ml PO DAILY PRN PRN PRN Reason: Constipation Methylprednisolone (Solu-Medrol) 40 mg IV Q8 [facility] Last Admin: 05/24/18 05:55 Dose: 40 mg Morphine Sulfate (Ms Contin) 30 mg PO BID [facility] Last Admin: 05/23/18 20:50 Dose: 30 mg Nicotine (Nicoderm Cq (Pbkc)) 21 mg TRANSDERM. DAILY [facility] Last Admin: 05/23/18 10:00 Dose: 21 mg Nutritional Formula (Lactose Free) (Glucerna Shake) 120 ml PO 4X/DAY [facility] Ondansetron HCl (Zofran) 4 mg IV Q8H PRN PRN PRN Reason: NAUSEA Last Admin: 05/23/18 22:50 Dose: 4 mg Oxycodone HCl (Oxyir) 5 mg PO Q6H PRN PRN PRN Reason: SEVERE PAIN (6-10/10) Last Admin: 05/24/18 05:54 Dose: 5 mg Sodium Chloride () 10 - 40 ml IV UD PRN PRN Reason: MULTILUMEN/HICMAN CATH FLUSH Last Admin: 05/24/18 01:59 Dose: 20 ml Medical Necessity - Tobacco Use Smoking Status: Current every day smoker Tobacco Use: Cigarettes Assessment/Plan All Active Problems Septic shock (Acute) SVT (supraventricular tachycardia) (Acute) Atrial fibrillation (Acute) Acute respiratory failure with hypoxia (Acute) 1. Acute hypoxic and hypercapnic respiratory failure improved and now extubated 2/2 PNA, COPD ex +/- bronchiectasis wean oxygen as tolerated pulm toilet 2. Suspected H. flu & MRSA pneumonia ongoing awaiting on final cultures continue Vancomycin and Zosyn for now. 3. AECOPD: improving continue BDs and IV steroids 4. Septic shock POA improving 2/2 pneumonia received IVF 3occ/kg 5. Metabolic encephalopathy resolved likely 2/2 CO2 narcosis ammonia slightly elevated, but doubt a significant contributer likely also complicated by narcotics that he takes chronically 6. Coagulopathy likely due to Xarelto + septic shock monitor 7. DVT proph: anticoagulated Transfer to to [facility]. Code Visit Inpatient E&M: 32191 Subs Hosp L2
--- NOTE | 2018-05-24 07:58 | PN_ITS ---
Patient Problems: Active and Suspected Problems Pneumonia due to methicillin resistant Staphylococcus aureus (MRSA) (Suspected) Septic shock (Acute) Subjective: breathing well. had some vomiting earlier. Vitals/I&O's: Vital Signs Temp Pulse Resp BP Pulse Ox 37.0 C 87 25 H 156/75 H 96 05/24/18 07:00 05/24/18 07:00 05/24/18 07:00 05/24/18 07:00 05/24/18 07:00 Oxygen Flow Rate (L/min) 3 Oxygen Delivery Method Nasal Cannula Weight: 69.6 kg Body Mass Index (BMI) 22.1 Intake and Output for Last 24 Hours 05/22/18 05/23/18 05/24/18 23:59 23:59 23:59 Intake Total 1327.8 / 1327.8 4524.0 / 4524.0 901 / 901 Output Total 200 / 200 2100 / 2100 225 / 225 Balance 1127.8 / 1127.8 2424.0 / 2424.0 676 / 676 General: Alert, Cooperative, No apparent distress HEENT: Atraumatic, Normocephalic Oral: Moist Mucosa, No Gingival or Mucosal Lesions/ Ulcerations Neck: No Nodes, Thyroid Normal Size and Texture Lungs: Normal air movement, - - coarse breath sounds bilaterally. Cardiovascular: Regular rate, Regular Rhythm, Normal S1, Normal S2, No murmurs Abdomen: Bowel Sounds Present, Soft, Non Tender, Non-Distended, No Hepato- splenomegaly Extremities: No edema, No Calf Tenderness Psych/Mental Status: Normal Affect, Appropriate Microbiology Past 72 Hours 05/22/18 11:30 Transtracheal Aspirate Gram Stain - Final 05/22/18 11:30 Transtracheal Aspirate Respiratory Culture - Preliminary GNR Possible Haemophilus sp. Staphylococcus aureus 05/22/18 11:20 Urine Catheter - Singer Urine Culture - Preliminary Culture exhibits no growth. Laboratory Results 05/22/18 10:30: POC Glucose 172 H 05/23/18 10:10: POC Glucose 98 05/23/18 11:26: Specimen Type ART, Sample Site R Brachial, pH 7.30 L, Bicarbonate Actual 27.5 H, POC Total CO2 29, Base Excess 1, O2 Saturation 95, ABG pCO2 56.1 H, ABG pO2 86, O2 Delivery Device Nasal Can, Liter Flow 4.0, Blood Gas Notified Whom ICU , Blood Gas Notified Time 1124 05/23/18 12:18: POC Glucose 98 05/23/18 16:29: POC Glucose 109 05/23/18 21:15: POC Glucose 115 H 05/24/18 05:00: WBC 7.6, RBC 4.75, Hgb 12.1 L, Hct 39.0 L, MCV 82.1, MCH 25.5 L, MCHC 31.0 L, RDW 15.8 H, RDW Differential 46.7 H, Plt Count 138 L, MPV 8.8, Immature Gran % (Auto) 0.100, Neut % (Auto) 94.0 H, Lymph % (Auto) 3.5 L, Maverick % (Auto) 2.4, Eos % (Auto) 0.0, Baso % (Auto) 0.0, Absolute Neuts (auto) 7.2, Absolute Lymphs (auto) 0.27 L, Total Counted Not Reportable, Differential Comment SCANNED 05/24/18 05:00: PT 16.8 H, INR 1.4 05/24/18 05:00: Sodium 143, Potassium 4.3, Chloride 110 H, Carbon Dioxide 30.0, Anion Gap 3 L, BUN 25 H, Creatinine 0.65 L, Estim Creat Clear Calc 67.40, Est GFR (MDRD) Af Amer 158, Est GFR (MDRD) Non-Af 131, BUN/Creatinine Ratio 38.7 H, Glucose 140 H, Calcium 8.1 L Current Medications Acetaminophen (Tylenol) 650 mg PO Q6H PRN PRN PRN Reason: Mild Pain (1-3)/Temp > 100.7 F Last Admin: 05/23/18 15:47 Dose: 650 mg Albuterol/Ipratropium (Duoneb) 3 ml INHALATION Q4HWA.RT PABLO Last Admin: 05/24/18 06:51 Dose: 3 ml Chlorhexidine Gluconate () 1 each TOPICAL DAILY PABLO Last Admin: 05/24/18 01:59 Dose: 1 each Vancomycin IV Pharmacy to Dose (1 ea/ Sodium Chloride) 500 mls @ 250 mls/hr IV X1 PRN; Protocol PRN Reason: Rx to Dose Piperacillin Sod/Tazobactam (Sod 3.375 gm/ Sodium Chloride) 50 mls @ 12.5 mls/hr IV Q8 [facility] Last Admin: 05/24/18 05:55 Dose: 12.5 mls/hr Vancomycin HCl () 500 mg in 100 mls @ 100 mls/hr IV Q12H [facility] Last Admin: 05/24/18 01:57 Dose: 100 mls/hr Sodium Chloride () 1,000 mls @ 125 mls/hr IV .Q8H [facility] Last Admin: 05/24/18 01:57 Dose: Not Given Lactulose (Chronulac, Cephulac) 10 gm PO BID [facility] Last Admin: 05/23/18 20:51 Dose: Not Given Magnesium Hydroxide (Milk Of Magnesia) 30 ml PO DAILY PRN PRN PRN Reason: Constipation Methylprednisolone (Solu-Medrol) 40 mg IV Q8 [facility] Last Admin: 05/24/18 05:55 Dose: 40 mg Morphine Sulfate (Ms Contin) 30 mg PO BID [facility] Last Admin: 05/23/18 20:50 Dose: 30 mg Nicotine (Nicoderm Cq (Pbkc)) 21 mg TRANSDERM. DAILY [facility] Last Admin: 05/23/18 10:00 Dose: 21 mg Nutritional Formula (Lactose Free) (Glucerna Shake) 120 ml PO 4X/DAY [facility] Ondansetron HCl (Zofran) 4 mg IV Q8H PRN PRN PRN Reason: NAUSEA Last Admin: 05/23/18 22:50 Dose: 4 mg Oxycodone HCl (Oxyir) 5 mg PO Q6H PRN PRN PRN Reason: SEVERE PAIN (6-10/10) Last Admin: 05/24/18 05:54 Dose: 5 mg Sodium Chloride () 10 - 40 ml IV UD PRN PRN Reason: MULTILUMEN/HICMAN CATH FLUSH Last Admin: 05/24/18 01:59 Dose: 20 ml Medical Necessity - Tobacco Use Smoking Status: Current every day smoker Tobacco Use: Cigarettes Assessment/Plan All Active Problems Septic shock (Acute) SVT (supraventricular tachycardia) (Acute) Atrial fibrillation (Acute) Acute respiratory failure with hypoxia (Acute) 1. Acute hypoxic and hypercapnic respiratory failure * improved and now extubated * 2/2 PNA, COPD ex +/- bronchiectasis * wean oxygen as tolerated * pulm toilet 2. Suspected H. flu & MRSA pneumonia * ongoing * awaiting on final cultures * continue Vancomycin and Zosyn for now. 3. AECOPD: * improving * continue BDs and IV steroids 4. Septic shock * POA * improving * 2/2 pneumonia * received IVF 3occ/kg 5. Metabolic encephalopathy * resolved * likely 2/2 CO2 narcosis * ammonia slightly elevated, but doubt a significant contributer * likely also complicated by narcotics that he takes chronically 6. Coagulopathy * likely due to Xarelto + septic shock * monitor 7. DVT proph: anticoagulated Transfer to to [facility]. Code Visit Inpatient E&M: 67990 Subs Hosp L2
[2018-05-24] MEDS: Ondansetron 4 MG/2 ML Vial IV ×2 (08:08→16:41)
[2018-05-24] MEDS: 0.9% Normal Saline 1,000 ML 125 ML IV (08:09)
[2018-05-24] MEDS: Lactulose 20 GM/30 ML UDC 10 GM PO ×2 (09:37→21:14)
[2018-05-24] MEDS: Metoprolol Tartrate 25 MG Tablet 12.5 MG PO ×2 (13:02→21:15)
[2018-05-24] MEDS: Amox/Clavulanate 875 MG Tablet PO ×2 (13:03→21:14)
[2018-05-24 13:16] LABS: Vancomycin, Trough Level 8.6 ug/mL (5.0-15.0)
[2018-05-24] MEDS: Glucerna Shake 120 ML LIQUID PO ×2 (14:29→21:13)
[2018-05-24 14:30] LABS: M R Staph aureus DNA By PCR POSITIVE (Negative); Probe Check PASS
--- NOTE | 2018-05-24 14:38 | PCM.RX.CS ---
Consult Pharmacy has been consulted to manage selected antiobiotic: Vancomycin Type of Consult: Follow-up Suspected Infection: Pneumonia Prior Doses of Antibiotics Received/Current Regimen: 5 Labs: Sodium 143 mmol/L (136-145) 05/24/18 05:00 Potassium 4.3 mmol/L (3.5-5.1) 05/24/18 05:00 Chloride 110 mmol/L (98-107) H 05/24/18 05:00 Carbon Dioxide 30.0 mmol/L (21.0-32.0) 05/24/18 05:00 Anion Gap 3 (5-15) L 05/24/18 05:00 BUN 25 mg/dL (7-18) H 05/24/18 05:00 Creatinine 0.65 mg/dL (0.70-1.30) L 05/24/18 05:00 Est GFR (MDRD) Af Amer 158 mL/min (>60) 05/24/18 05:00 Est GFR (MDRD) Non-Af 131 mL/min (>60) 05/24/18 05:00 BUN/Creatinine Ratio 38.7 RATIO (10-20) H 05/24/18 05:00 Glucose 140 mg/dL (74-106) H 05/24/18 05:00 Vancomycin Trough 8.6 ug/mL (5.0-15.0) 05/24/18 12:25 Microbiology: Microbiology 05/22/18 11:10 Blood Culture (Wb) - Left Forearm Blood Culture - Preliminary No growth in 48 hours. 05/22/18 11:20 Blood Culture (Wb) - Right Hand Blood Culture - Preliminary No growth in 48 hours. 05/22/18 11:20 Urine Catheter - Singer Urine Culture - Final Culture exhibits no growth. 05/22/18 11:30 Transtracheal Aspirate Gram Stain - Final 05/22/18 11:30 Transtracheal Aspirate Respiratory Culture - Preliminary GNR Possible Haemophilus sp. Staphylococcus aureus Weight used for dosin.9 kg Estimated Creatinine Clearance: 67 Goal Trough: 15-20 mcg/mL Pharmacy Plan for Drug Dosing: Pharmacy Service will continue to monitor and adjust dosing as required.
--- NOTE | 2018-05-24 14:55 | CHAPLAIN ---
Type of Pastoral Visit ___ Initial Visit ___ Follow-up Visit ___ On-call Visit ___ General Patient Visit ___ Spiritual Assessment ___ Family Conference ___ Bereavement ___ Rapid Response ___ Code Blue _x__ Other (describe below) Pastoral Care Referral From ___ Patient ___ Family ___ Nurse ___ Physician ___ Coding Specialist ___ Origination Specialist _x__ Other (describe below) Sacrament/Intervention ___ Active listening ___ Anointing ___ Voodoo ___ Bereavement ___ Communion ___ Yolanda exploration ___ ___ Life review ___ Prayer ___ Reconciliation ___ Sacrament of Sick ___ Supportive presence ___ Wedding ___ Other (describe below) Pastoral Comments patient was asleep but family members were in room; offered support; family said they are encouraged to see improvement and they welcomed support but nothing needed at this time
[2018-05-25] VITALS (16 sets, daily range): BP systolic 137–149; BP diastolic 70–86; PULSE 64–83; RESP 12–20; TEMP 35.9–36.4; O2SAT 3–98
[2018-05-25] MEDS: oxyCODONE 5 MG Tablet PO ×3 (01:13→18:08)
--- NOTE | 2018-05-25 06:45 | NURSING ---
Pt requested to take BI-PAP off last night so I put him back on 3 L 02 and his Oxygen SATS were 97%. I talked with TIAN and he said that was fine. He said they had him on it because he just got recently extubated and he is doing well.
[2018-05-25] MEDS: Ipratropium/Albuterol Sulfate 3 ML AMPUL.NEB INHALATION ×5 (07:18→22:51)
--- NOTE | 2018-05-25 08:30 | PN_ITS ---
Patient Problems: Active and Suspected Problems Pneumonia due to methicillin resistant Staphylococcus aureus (MRSA) (Suspected) Septic shock (Acute) Subjective: Patient did okay overnight. No acute issues were reported. Patient was found off his BiPAP during my evaluation this morning. Patient denied any pain. Patient was able to state that he was in the hospital. - Physical Exam General: - - RASS -1. No conversational dyspnea noted. HEENT: Atraumatic, PERRLA, EOMI, Normocephalic, - - Right scleral injection Oral: Moist Mucosa, No Gingival or Mucosal Lesions/ Ulcerations Neck: Supple, No JVD, No Nodes, Trachea Midline Lungs: No wheeze, No rales, Diminished, Rhonchi, - - Symmetric expansion. Cardiovascular: Regular rate, Regular Rhythm, Normal S1, Normal S2, No murmurs, No rub noted, No Gallop Abdomen: Bowel Sounds Present, Soft, Non Tender, Non-Distended Extremities: No cyanosis, No edema, Capillary Refill Less than 3 Seconds, Clubbing Skin: - - No significant change compared to previous Musculoskeletal: No Tenderness to Palpation of Joints or Extremities Lymphatic: No Cervical, Supraclavicular, or Inguinal Adenopathy Neurological: Cranial nerves II-XII grossly intact, Neuro grossly intact, Motor Exam 5/5 strength throughout Psych/Mental Status: Appropriate, Flat Affect Vital Signs Temp Pulse Resp BP Pulse Ox 36.4 C L 71 16 149/86 H 97 05/25/18 02:41 05/25/18 07:18 05/25/18 07:18 05/25/18 02:41 05/25/18 07:18 Oxygen Flow Rate (L/min) 3 Oxygen Delivery Method Nasal Cannula Weight: 69.1 kg Body Mass Index (BMI) 22.1 Intake and Output for Last 24 Hours 05/23/18 05/24/18 05/25/18 23:59 23:59 23:59 Intake Total 4524.0 / 4524.0 1251 / 1251 500 / 500 Output Total 2100 / 2100 1225 / 1225 600 / 600 Balance 2424.0 / 2424.0 -100 / -100 Microbiology Past 72 Hours 05/22/18 11:30 Gram Stain - Final Transtracheal Aspirate Respiratory Culture - Final Haemophilus influenzae Meth. resistant Staph. aureus 05/22/18 11:10 Blood Culture - Preliminary Blood Culture (Wb) - Left Forearm No growth in 48 hours. 05/22/18 11:20 Blood Culture - Preliminary Blood Culture (Wb) - Right Hand No growth in 48 hours. 05/22/18 11:20 Urine Culture - Final Urine Catheter - Singer Culture exhibits no growth. Laboratory Tests Past 24 Hrs 05/24/18 05/24/18 09:40 12:25 Vancomycin Trough 8.6 MRSA (PCR) POSITIVE H Medical Necessity - Tobacco Use Smoking Status: Current every day smoker Tobacco Use: Cigarettes Assessment/Plan All Active Problems Septic shock (Acute) SVT (supraventricular tachycardia) (Acute) Atrial fibrillation (Acute) Acute respiratory failure with hypoxia (Acute) RECOMMENDATIONS: 1. Aggressive pulmonary toileting 2. Continue current bronchodilators, antibiotics, but wean steroids 3. Wean oxygen as tolerated 4. BiPAP with sleep, may need rescue otherwise 5. Okay to reinitiate baseline Lasix and anticoagulation therapy from my perspective 6. ABG if any decrease in mental status IMPRESSIONS: 1. Acute combined respiratory failure secondary to pneumonia in the setting of reported COPD and bronchiectasis Patient appears to be doing well. Patient's bacterial cultures are showing Haemophilus and MRSA. Patient did have significant CO2 retention with sleep. Patient should be continued on BiPAP with any sleep. Patient does not wear BiPAP with sleep, BiPAP rescue may be necessary during the day. Wean supplemental oxygen as tolerated. 2. Septic shock Patient with large right-sided pneumonia. Patient has had improvement in blood pressures overnight. No pressors have been required. We will continue to monitor closely. Patient's renal function appears to be doing okay at this time. Okay to reinitiate Lasix and anticoagulation therapy from my perspective. 3. Coagulopathy Patient on Xarelto therapy at baseline. Unknown baseline creatinine and INR is not a good surrogate. Okay to reinitiate anticoagulation from my perspective 4. Probable metabolic encephalopathy Appears to be improving. Patient's ammonia level was elevated. Patient can be placed on lactulose. Likely secondary to CO2 retention. 5. Metastatic liver cancer/reported COPD/diabetes mellitus Complicates care, management, recovery and prognosis. Okay to discontinue sliding scale insulin Code Visit Inpatient E&M: 07403 [facility] Hosp L3
--- NOTE | 2018-05-25 09:28 | PCM.PN.HOSP ---
Patient Problems: Active and Suspected Problems Pneumonia due to methicillin resistant Staphylococcus aureus (MRSA) (Suspected) Septic shock (Acute) Subjective: Breathing well. No complaints. Vitals/I&O's: Vital Signs Temp Pulse Resp BP Pulse Ox 36.4 C L 71 16 149/86 H 97 05/25/18 02:41 05/25/18 07:18 05/25/18 07:18 05/25/18 02:41 05/25/18 07:18 Oxygen Flow Rate (L/min) 3 Oxygen Delivery Method Nasal Cannula Weight: 69.1 kg Body Mass Index (BMI) 22.1 Intake and Output for Last 24 Hours 05/23/18 05/24/18 05/25/18 23:59 23:59 23:59 Intake Total 4524.0 / 4524.0 1251 / 1251 500 / 500 Output Total 2100 / 2100 1225 / 1225 600 / 600 Balance 2424.0 / 2424.0 26 / 26 -100 / -100 General: Alert, No apparent distress HEENT: Atraumatic, Normocephalic Oral: Moist Mucosa, No Gingival or Mucosal Lesions/ Ulcerations Neck: No Nodes, Thyroid Normal Size and Texture Lungs: Normal air movement, - - coarse breath sounds bilaterally Cardiovascular: Regular rate, Regular Rhythm, Normal S1, Normal S2, No murmurs Abdomen: Bowel Sounds Present, Soft, Non Tender, Non-Distended, No Hepato-splenomegaly Extremities: No edema, No Calf Tenderness Skin: No rashes, No breakdown Psych/Mental Status: Normal Affect, Appropriate Microbiology Past 72 Hours 05/22/18 11:30 Transtracheal Aspirate Gram Stain - Final 05/22/18 11:30 Transtracheal Aspirate Respiratory Culture - Final Haemophilus influenzae Meth. resistant Staph. aureus 05/22/18 11:10 Blood Culture (Wb) - Left Forearm Blood Culture - Preliminary No growth in 48 hours. 05/22/18 11:20 Blood Culture (Wb) - Right Hand Blood Culture - Preliminary No growth in 48 hours. 05/22/18 11:20 Urine Catheter - Singer Urine Culture - Final Culture exhibits no growth. Laboratory Results 05/24/18 09:40: MRSA (PCR) POSITIVE H 05/24/18 12:25: Vancomycin Trough 8.6 Current Medications Acetaminophen (Tylenol) 650 mg PO Q6H PRN PRN PRN Reason: Mild Pain (1-3)/Temp > 100.7 F Last Admin: 05/23/18 15:47 Dose: 650 mg Albuterol/Ipratropium (Duoneb) 3 ml INHALATION Q4HWA.RT [facility] Last Admin: 05/25/18 07:18 Dose: 3 ml Amoxicillin/Clavulanate Potassium (Augmentin Tablet) 875 mg PO BID [facility] Last Admin: 05/24/18 21:14 Dose: 875 mg Doxycycline Monohydrate (Doxycycline) 100 mg PO BID [facility] Stop: 05/31/18 22:01 Lactulose (Chronulac, Cephulac) 10 gm PO BID [facility] Last Admin: 05/24/18 21:14 Dose: 10 gm Magnesium Hydroxide (Milk Of Magnesia) 30 ml PO DAILY PRN PRN PRN Reason: Constipation Methylprednisolone (Solu-Medrol) 40 mg IV Q12 [facility] Metoprolol Tartrate (Lopressor (Beta Sarah)) 12.5 mg PO BID [facility] Last Admin: 05/24/18 21:15 Dose: 12.5 mg Morphine Sulfate (Ms Contin) 30 mg PO BID [facility] Last Admin: 05/24/18 21:14 Dose: 30 mg Nicotine (Nicoderm Cq (Pbkc)) 21 mg TRANSDERM. DAILY [facility] Last Admin: 05/24/18 09:35 Dose: 21 mg Nutritional Formula (Lactose Free) (Glucerna Shake) 120 ml PO 4X/DAY [facility] Last Admin: 05/24/18 21:13 Dose: 120 ml Ondansetron HCl (Zofran) 4 mg IV Q8H PRN PRN PRN Reason: NAUSEA Last Admin: 05/24/18 16:41 Dose: 4 mg Oxycodone HCl (Oxyir) 5 mg PO Q6H PRN PRN PRN Reason: SEVERE PAIN (6-10/10) Last Admin: 05/25/18 01:13 Dose: 5 mg Sodium Chloride () 10 - 40 ml IV UD PRN PRN Reason: MULTILUMEN/HICMAN CATH FLUSH Last Admin: 05/25/18 06:14 Dose: 10 ml Medical Necessity - Tobacco Use Smoking Status: Current every day smoker Tobacco Use: Cigarettes Assessment/Plan All Active Problems Septic shock (Acute) SVT (supraventricular tachycardia) (Acute) Atrial fibrillation (Acute) Acute respiratory failure with hypoxia (Acute) 1. Acute hypoxic and hypercapnic respiratory failure improved and now extubated 2/2 PNA, COPD ex +/- bronchiectasis wean oxygen as tolerated pulm toilet 2. H. flu & MRSA pneumonia improving changed to doxycycline and augmentin by [facility] 3. AECOPD: improving continue BDs and IV steroids 4. Septic shock POA resolved 2/2 pneumonia received IVF 3occ/kg 5. Metabolic encephalopathy resolved likely 2/2 CO2 narcosis ammonia slightly elevated, but doubt a significant contributer likely also complicated by narcotics that he takes chronically 6. Coagulopathy likely due to Xarelto + septic shock monitor 7. DVT proph: anticoagulated Code Visit Inpatient E&M: 80661 Subs Hosp L2
--- NOTE | 2018-05-25 09:35 | PN_ITS ---
Patient Problems: Active and Suspected Problems Pneumonia due to methicillin resistant Staphylococcus aureus (MRSA) (Suspected) Septic shock (Acute) Subjective: Breathing well. No complaints. Vitals/I&O's: Vital Signs Temp Pulse Resp BP Pulse Ox 36.4 C L 71 16 149/86 H 97 05/25/18 02:41 05/25/18 07:18 05/25/18 07:18 05/25/18 02:41 05/25/18 07:18 Oxygen Flow Rate (L/min) 3 Oxygen Delivery Method Nasal Cannula Weight: 69.1 kg Body Mass Index (BMI) 22.1 Intake and Output for Last 24 Hours 05/23/18 05/24/18 05/25/18 23:59 23:59 23:59 Intake Total 4524.0 / 4524.0 1251 / 1251 500 / 500 Output Total 2100 / 2100 1225 / 1225 600 / 600 Balance 2424.0 / 2424.0 26 / 26 -100 / -100 General: Alert, No apparent distress HEENT: Atraumatic, Normocephalic Oral: Moist Mucosa, No Gingival or Mucosal Lesions/ Ulcerations Neck: No Nodes, Thyroid Normal Size and Texture Lungs: Normal air movement, - - coarse breath sounds bilaterally Cardiovascular: Regular rate, Regular Rhythm, Normal S1, Normal S2, No murmurs Abdomen: Bowel Sounds Present, Soft, Non Tender, Non-Distended, No Hepato- splenomegaly Extremities: No edema, No Calf Tenderness Skin: No rashes, No breakdown Psych/Mental Status: Normal Affect, Appropriate Microbiology Past 72 Hours 05/22/18 11:30 Transtracheal Aspirate Gram Stain - Final 05/22/18 11:30 Transtracheal Aspirate Respiratory Culture - Final Haemophilus influenzae Meth. resistant Staph. aureus 05/22/18 11:10 Blood Culture (Wb) - Left Forearm Blood Culture - Preliminary No growth in 48 hours. 05/22/18 11:20 Blood Culture (Wb) - Right Hand Blood Culture - Preliminary No growth in 48 hours. 05/22/18 11:20 Urine Catheter - Singer Urine Culture - Final Culture exhibits no growth. Laboratory Results 05/24/18 09:40: MRSA (PCR) POSITIVE H 05/24/18 12:25: Vancomycin Trough 8.6 Current Medications Acetaminophen (Tylenol) 650 mg PO Q6H PRN PRN PRN Reason: Mild Pain (1-3)/Temp > 100.7 F Last Admin: 05/23/18 15:47 Dose: 650 mg Albuterol/Ipratropium (Duoneb) 3 ml INHALATION Q4HWA.RT [facility] Last Admin: 05/25/18 07:18 Dose: 3 ml Amoxicillin/Clavulanate Potassium (Augmentin Tablet) 875 mg PO BID [facility] Last Admin: 05/24/18 21:14 Dose: 875 mg Doxycycline Monohydrate (Doxycycline) 100 mg PO BID [facility] Stop: 05/31/18 22:01 Lactulose (Chronulac, Cephulac) 10 gm PO BID [facility] Last Admin: 05/24/18 21:14 Dose: 10 gm Magnesium Hydroxide (Milk Of Magnesia) 30 ml PO DAILY PRN PRN PRN Reason: Constipation Methylprednisolone (Solu-Medrol) 40 mg IV Q12 [facility] Metoprolol Tartrate (Lopressor (Beta Sarah)) 12.5 mg PO BID [facility] Last Admin: 05/24/18 21:15 Dose: 12.5 mg Morphine Sulfate (Ms Contin) 30 mg PO BID [facility] Last Admin: 05/24/18 21:14 Dose: 30 mg Nicotine (Nicoderm Cq (Pbkc)) 21 mg TRANSDERM. DAILY [facility] Last Admin: 05/24/18 09:35 Dose: 21 mg Nutritional Formula (Lactose Free) (Glucerna Shake) 120 ml PO 4X/DAY [facility] Last Admin: 05/24/18 21:13 Dose: 120 ml Ondansetron HCl (Zofran) 4 mg IV Q8H PRN PRN PRN Reason: NAUSEA Last Admin: 05/24/18 16:41 Dose: 4 mg Oxycodone HCl (Oxyir) 5 mg PO Q6H PRN PRN PRN Reason: SEVERE PAIN (6-10/10) Last Admin: 05/25/18 01:13 Dose: 5 mg Sodium Chloride () 10 - 40 ml IV UD PRN PRN Reason: MULTILUMEN/HICMAN CATH FLUSH Last Admin: 05/25/18 06:14 Dose: 10 ml Medical Necessity - Tobacco Use Smoking Status: Current every day smoker Tobacco Use: Cigarettes Assessment/Plan All Active Problems Septic shock (Acute) SVT (supraventricular tachycardia) (Acute) Atrial fibrillation (Acute) Acute respiratory failure with hypoxia (Acute) 1. Acute hypoxic and hypercapnic respiratory failure * improved and now extubated * 2/2 PNA, COPD ex +/- bronchiectasis * wean oxygen as tolerated * pulm toilet 2. H. flu & MRSA pneumonia * improving * changed to doxycycline and augmentin by [facility] 3. AECOPD: * improving * continue BDs and IV steroids 4. Septic shock * POA * resolved * 2/2 pneumonia * received IVF 3occ/kg 5. Metabolic encephalopathy * resolved * likely 2/2 CO2 narcosis * ammonia slightly elevated, but doubt a significant contributer * likely also complicated by narcotics that he takes chronically 6. Coagulopathy * likely due to Xarelto + septic shock * monitor 7. DVT proph: anticoagulated Code Visit Inpatient E&M: 87666 Subs Hosp L2
[2018-05-25] MEDS: Lactulose 20 GM/30 ML UDC 10 GM PO ×2 (10:45→21:07)
[2018-05-25] MEDS: Amox/Clavulanate 875 MG Tablet PO ×2 (10:45→21:08)
[2018-05-25] MEDS: guaiFENesin 600 MG Tablet PO ×2 (10:46→21:07)
[2018-05-25] MEDS: Metoprolol Tartrate 25 MG Tablet PO ×2 (10:49→21:09)
[2018-05-25] MEDS: dilTIAZem CD 120 MG Capsule PO (10:49)
[2018-05-25] MEDS: Glucerna Shake 120 ML LIQUID PO ×3 (10:50→21:06)
[2018-05-25] MEDS: Metoprolol Tartrate 25 MG Tablet 12.5 MG PO ×2 (10:50→21:08)
[2018-05-25] MEDS: Losartan Potassium 25 MG Tablet PO (10:51)
[2018-05-25 12:15] LABS: Bedside Glucose 134 mg/dL (70-110)
[2018-05-25] MEDS: Doxycycline 100 MG CAPSULE PO ×2 (12:17→21:08)
--- NOTE | 2018-05-25 15:15 | CASEMGMT ---
RN CM Note: discussed PT/OT notes with pt's . Home Care declined @ this time. states she works with him @ home and family is available. -Pt is on Bipap here. Does not have Bipap/Cpap at home. Sleep disorder eval placed, call to alva @ [facility] sleep lab to update and also let her know pt sees Dr. Ontiveros outpt. Juvenal HUTCHINSON BSN CM
[2018-05-25] MEDS: Rivaroxaban 20 MG Tablet PO (18:06)
[2018-05-25 18:16] LABS: Bedside Glucose 131 mg/dL (70-110)
--- NOTE | 2018-05-25 18:22 | NURSING ---
Up to chair with this nurse's assistance at this time. Eating dinner in chair. at his side.
[2018-05-25] MEDS: Mirtazapine 15 MG Tablet 30 MG PO (21:10)
[2018-05-26] MEDS: oxyCODONE 5 MG Tablet PO ×2 (00:41→06:43)
[2018-05-26 03:08] VITALS: BP 136/73; PULSE 67; RESP 18; TEMP 35.7; O2SAT 98
--- NOTE | 2018-05-26 03:19 | NURSING ---
Patient wanted a break from BI-PAP this morning at 0100 so I put him on 3L o2 NC. Went back later at 0300 and Patient refused to put the BI-PAP back on for me and respiratory. Patient was easily arousable and his pulse ox was 98%.
[2018-05-26] MEDS: Ipratropium/Albuterol Sulfate 3 ML AMPUL.NEB INHALATION (07:18)
[2018-05-26 07:19] VITALS: PULSE 57; RESP 18; O2SAT 98
[2018-05-26 08:00] VITALS: O2SAT 86
[2018-05-26 08:12] VITALS: BP 145/73; PULSE 63; RESP 18; TEMP 35.7; O2SAT 96
--- NOTE | 2018-05-26 08:33 | DCINST_ITS ---
- Discharge Diagnoses Current Active Problems: Current Active and Chronic Problems Septic shock (Acute) Nicotine dependence (Chronic) Metastatic adenocarcinoma to liver (Chronic) You will use the following diet at home:: Calorie/Carbohydrate Controlled (specify 1200, 1400, etc) - 1800 Your food should be the consistency of: Regular Your liquids should be the consistency of: Regular/Thin Discharge Activity: Return to Normal Activity Additional Activity Instructions:: increase oxygen from 3 liters at rest to 4 liters with activity Call your doctor if your incision/area has: Continuous Slow Oozing Call your doctor if you observe: Fever of 101 or Higher, Shortness of breath Allergies/Adverse Reactions: Allergies tramadol Allergy (Verified 05/22/18 12:50) Rash Medications to take at Discharge Albuterol IH (ProAir) [Proair Hfa] 2 puff INHALATION Q4H PRN PRN 08/31/15 Ipratropium/Albuterol Sulfate [Duoneb] 3 ml INHALATION Q6HWA.RT 08/31/15 Oxycodone [Oxyir] 10 mg PO Q6H PRN PRN 08/31/15 Diltiazem CD [Cardizem CD] 120 mg PO DAILY #30 capsule 09/04/15 Glimepiride [Amaryl] 2 mg PO DAILY #30 tablet 09/04/15 Furosemide [Lasix] 20 mg PO DAILY PRN PRN 12/01/17 Losartan Potassium 25 mg PO DAILY 12/01/17 Metoprolol Tartrate [Lopressor (beta elen)] 25 mg PO BID 12/01/17 Rivaroxaban [Xarelto] 20 mg PO DAILY 12/01/17 Guaifenesin [Mucinex] 600 mg PO BID 05/22/18 Mirtazapine 30 mg PO QHS 05/22/18 Acetaminophen [Tylenol Tablet] 650 mg PO Q6H PRN PRN tablet 05/26/18 Amox/Clavulanate Tablet [Augmentin Tablet] 875 mg PO BID #10 tablet 05/26/18 Doxycycline 100 mg PO BID #10 capsule 05/26/18 Prednisone 10 mg PO DAILY #30 tab.ds.pk 05/26/18 The following prescriptions were given: Prednisone 10 mg PO DAILY #30 tab.ds.pk Amox/Clavulanate Tablet [Augmentin Tablet] 875 mg PO BID #10 tablet Doxycycline 100 mg PO BID #10 capsule Primary Care Physician: Humberto Ware MD [Primary Care Provider] - Within 2 Weeks Test Results: Test results from this visit will be discussed in further detail at your follow- up appointment, if applicable. Please Follow Up With: [facility] When: 2-4 weeks Proposed Discharge Date: 05/26/18
--- NOTE | 2018-05-26 08:33 | PCM.DC.SUM ---
Discharge Date and Diagnosis - Problem List Patient Problems: Active and Suspected Problems Metabolic encephalopathy (Acute) Haemophilus influenzae pneumonia (Acute) Pneumonia due to methicillin resistant Staphylococcus aureus (MRSA) (Acute) Septic shock (Acute) Date of Admission: 05/22/18 Date of Discharge: 05/26/18 - Primary Discharge Diagnosis Active and Suspected Problems Metabolic encephalopathy (Acute) Haemophilus influenzae pneumonia (Acute) Pneumonia due to methicillin resistant Staphylococcus aureus (MRSA) (Acute) Septic shock (Acute) 1. Acute hypoxic and hypercapnic respiratory failure improved and now extubated 2/2 PNA, COPD ex +/- bronchiectasis wean oxygen as tolerated pulm toilet 2. H. flu & MRSA pneumonia improving changed to doxycycline and augmentin by [facility] 3. AECOPD: improving continue BDs and IV steroids DC with prednisone taper follow up with pulmonology as outpt 4. Septic shock POA resolved 2/2 pneumonia received IVF 3occ/kg 5. Metabolic encephalopathy resolved likely 2/2 CO2 narcosis ammonia slightly elevated, but doubt a significant contributing factore--discontinue lactulose likely also complicated by narcotics that he takes chronically: resume as need oxycodone, but discontinue scheduled MS contin 6. Coagulopathy likely due to Xarelto + septic shock monitor - Secondary Discharge Diagnosis Chronic Problems Nicotine dependence (Chronic) Metastatic adenocarcinoma to liver (Chronic) Type II diabetes mellitus (Chronic) Hypertension (Chronic) COPD (chronic obstructive pulmonary disease) (Chronic) Reported FEV1 40% Hospital Course and Treatment Imaging Results: Clinical Impression(s) from Imaging Studies Chest X-Ray 05/22/18 10:36 IMPRESSION: Right lower lobe consolidation. Infiltration in the left lower lobe with blunting of both costophrenic angles. Electronically Signed: Nelson Fournier, at 12:45 EDT , Service support , Brain CT 05/22/18 10:53 IMPRESSION: Chronic involutional changes of the brain. Electronically Signed: Nelson Fournier, at 13:00 EDT , Service support , Selvin Wells MD: pulmonology Operations: None Procedures: Intubation Summary of Care Provided: The patient is a 67 year old M with acute respiratory failure secondary to acute exacerbation of COPD, MRSA pneumonia and off list influenza pneumonia. Patient was intubated and subsequent extubated and is done well. Patient is on oxygen at home at 3 L. Patient last increase his oxygen to 4 L with activity but does have oxygen at home. Otherwise patient is doing well and will be discharged. Patient did have some confusion but it is likely more metabolic than toxic. Patient was having CO2 narcosis which is likely etiology of his encephalopathy. His narcotics were held and patient did well did not have any withdrawal symptoms the patient can resume his oxycodone as needed but informed to hold his MS Contin. [] Patient Problems: Active and Suspected Problems Metabolic encephalopathy (Acute) Haemophilus influenzae pneumonia (Acute) Pneumonia due to methicillin resistant Staphylococcus aureus (MRSA) (Acute) Septic shock (Acute) - Physical Exam General: Alert, No apparent distress HEENT: Atraumatic, Normocephalic Oral: Moist Mucosa, No Gingival or Mucosal Lesions/ Ulcerations Neck: No Nodes, Thyroid Normal Size and Texture Lungs: Clear to auscultation, Diminished Cardiovascular: Regular rate, Regular Rhythm, Normal S1, Normal S2, No murmurs Abdomen: Bowel Sounds Present, Soft, Non Tender, Non-Distended, No Hepato-splenomegaly Extremities: No edema, No Calf Tenderness Vital Signs Temp Pulse Resp BP Pulse Ox 35.7 C L 63 18 145/73 H 96 05/26/18 08:12 05/26/18 08:12 05/26/18 08:12 05/26/18 08:12 05/26/18 08:12 Oxygen Flow Rate (L/min) 3 Oxygen Delivery Method Nasal Cannula Weight: 69.1 kg Body Mass Index (BMI) 22.1 Intake and Output for Last 24 Hours 05/24/18 05/25/18 05/26/18 23:59 23:59 23:59 Intake Total 1251 / 1251 1040 / 1040 340 / 340 Output Total 1225 / 1225 1225 / 1225 400 / 400 Balance 26 / -185 / -185 -60 / -60 Microbiology Past 72 Hours 05/22/18 11:30 Gram Stain - Final Transtracheal Aspirate Respiratory Culture - Final Haemophilus influenzae Meth. resistant Staph. aureus 05/22/18 11:10 Blood Culture - Preliminary Blood Culture (Wb) - Left Forearm No growth in 48 hours. 05/22/18 11:20 Blood Culture - Preliminary Blood Culture (Wb) - Right Hand No growth in 48 hours. 05/22/18 11:20 Urine Culture - Final Urine Catheter - Singer Culture exhibits no growth. POC Glucose 05/25/18 05/25/18 17:59 12:03 POC Glucose 131 H 134 H Discharge Diet: 1800 Calorie Control Diet Discharge Activity: Return to Normal Activity Additional Activity Instructions:: increase oxygen from 3 liters at rest to 4 liters with activity Call your doctor if your incision/area has: Continuous Slow Oozing Call your doctor if you observe: Fever of 101 or Higher, Shortness of breath Home Medications: Medications to take at Discharge Albuterol IH (ProAir) [Proair Hfa] 2 puff INHALATION Q4H PRN PRN 08/31/15 Ipratropium/Albuterol Sulfate [Duoneb] 3 ml INHALATION Q6HWA.RT 08/31/15 Oxycodone [Oxyir] 10 mg PO Q6H PRN PRN 08/31/15 Diltiazem CD [Cardizem CD] 120 mg PO DAILY #30 capsule 09/04/15 Glimepiride [Amaryl] 2 mg PO DAILY #30 tablet 09/04/15 Furosemide [Lasix] 20 mg PO DAILY PRN PRN 12/01/17 Losartan Potassium 25 mg PO DAILY 12/01/17 Metoprolol Tartrate [Lopressor (beta elen)] 25 mg PO BID 12/01/17 Rivaroxaban [Xarelto] 20 mg PO DAILY 12/01/17 Guaifenesin [Mucinex] 600 mg PO BID 05/22/18 Mirtazapine 30 mg PO QHS 05/22/18 Acetaminophen [Tylenol Tablet] 650 mg PO Q6H PRN PRN tablet 05/26/18 Amox/Clavulanate Tablet [Augmentin Tablet] 875 mg PO BID #10 tablet 05/26/18 Doxycycline 100 mg PO BID #10 capsule 05/26/18 Prednisone 10 mg PO DAILY #30 tab.ds.pk 05/26/18 Following Prescrptions Were Given to Patient: Prednisone 10 mg PO DAILY #30 tab.ds.pk Amox/Clavulanate Tablet [Augmentin Tablet] 875 mg PO BID #10 tablet Doxycycline 100 mg PO BID #10 capsule Primary Care Physician: Humberto Ware MD [Primary Care Provider] - Within 2 Weeks Please Follow Up With: [facility] When: 2-4 weeks Disposition: Home Minutes spent on discharge:: 32 Patient Condition:: Fair Medical Necessity - Tobacco Use Smoking Status: Current every day smoker Tobacco Use: Cigarettes Meaningful Use Info Meaningful Use Diagnoses (Choose all that apply): None applicable Code Visit Inpatient E&M: 00084 Disch Hosp
--- NOTE | 2018-05-26 08:34 | PCM.PN.PUL ---
Patient Problems: Active and Suspected Problems Metabolic encephalopathy (Acute) Haemophilus influenzae pneumonia (Acute) Pneumonia due to methicillin resistant Staphylococcus aureus (MRSA) (Acute) Septic shock (Acute) Subjective: Patient feels subjectively improved compared to yesterday. Patient has required less BiPAP with sleep and is more interactive per family at the bedside. Patient does have supplemental oxygen at home already, but states he has variable compliance. - Physical Exam General: Alert, Oriented x3, Cooperative, No apparent distress, - - No conversational dyspnea. HEENT: Atraumatic, PERRLA, EOMI, Normocephalic, - - No scleral icterus or injection noted. Oral: Moist Mucosa, No Gingival or Mucosal Lesions/ Ulcerations Neck: Supple, No JVD, No Nodes, Trachea Midline Lungs: No rhonchi, No rales, Diminished, Wheezes - Sporadic, - - Symmetric expansion. No dullness to percussion. Cardiovascular: Regular rate, Regular Rhythm, Normal S1, Normal S2, No murmurs, No rub noted, No Gallop Abdomen: Bowel Sounds Present, Soft, Non Tender, Non-Distended Extremities: No cyanosis, No edema, Clubbing Skin: - - No significant change compared to previous Musculoskeletal: No Tenderness to Palpation of Joints or Extremities Lymphatic: No Cervical, Supraclavicular, or Inguinal Adenopathy Neurological: Cranial nerves II-XII grossly intact, Neuro grossly intact, Motor Exam 5/5 strength throughout Psych/Mental Status: Alert and oriented to time, place, person, mood and affect Vital Signs Temp Pulse Resp BP Pulse Ox 35.7 C L 63 18 145/73 H 96 05/26/18 08:12 05/26/18 08:12 05/26/18 08:12 05/26/18 08:12 05/26/18 08:12 Oxygen Flow Rate (L/min) 3 Oxygen Delivery Method Nasal Cannula Weight: 69.1 kg Body Mass Index (BMI) 22.1 Intake and Output for Last 24 Hours 05/24/18 05/25/18 05/26/18 23:59 23:59 23:59 Intake Total 1251 / 1251 1040 / 1040 340 / 340 Output Total 1225 / 1225 1225 / 1225 400 / 400 Balance / -185 / -185 -60 / -60 Microbiology Past 72 Hours 05/22/18 11:30 Gram Stain - Final Transtracheal Aspirate Respiratory Culture - Final Haemophilus influenzae Meth. resistant Staph. aureus 05/22/18 11:10 Blood Culture - Preliminary Blood Culture (Wb) - Left Forearm No growth in 48 hours. 05/22/18 11:20 Blood Culture - Preliminary Blood Culture (Wb) - Right Hand No growth in 48 hours. 05/22/18 11:20 Urine Culture - Final Urine Catheter - Singer Culture exhibits no growth. POC Glucose 05/25/18 05/25/18 17:59 12:03 POC Glucose 131 H 134 H Medical Necessity - Tobacco Use Smoking Status: Current every day smoker Tobacco Use: Cigarettes Assessment/Plan All Active Problems Metabolic encephalopathy (Acute) Haemophilus influenzae pneumonia (Acute) Pneumonia due to methicillin resistant Staphylococcus aureus (MRSA) (Acute) Septic shock (Acute) SVT (supraventricular tachycardia) (Acute) Atrial fibrillation (Acute) Acute respiratory failure with hypoxia (Acute) RECOMMENDATIONS: 1. Aggressive pulmonary toileting 2. Patient should complete 7 days of antibiotics and a 2-week taper of prednisone 3. Walking oximetry prior to discharge 4. Okay to reinitiate baseline medications 5. Patient should follow-up in 2 weeks in our office with nurse practitioner IMPRESSIONS: 1. Acute combined respiratory failure secondary to pneumonia in the setting of reported COPD and bronchiectasis Patient appears to be doing well. Patient's bacterial cultures are showing Haemophilus and MRSA. Patient appears to be doing well with sleep. Patient waking up easily, so clinical CO2 retention is unlikely. Patient was never bacteremic, so 7 days of antibiotics would be sufficient. Patient should have a 2-week taper of prednisone on discharge. Patient should have a walking oximetry for formal recommendations prior to discharge. 2. Septic shock Patient with large right-sided pneumonia. Patient has had improvement in blood pressures overnight. No pressors have been required. We will continue to monitor closely. Patient's renal function appears to be doing okay at this time. Okay to reinitiate Lasix and anticoagulation therapy from my perspective. 3. Coagulopathy Patient on Xarelto therapy at baseline. Unknown baseline creatinine and INR is not a good surrogate. Patient appears to be tolerating reinitiation of anticoagulation well 4. Probable metabolic encephalopathy Back to baseline per family. Patient's ammonia level was elevated. Patient can be placed on lactulose. Likely secondary to CO2 retention. 5. Metastatic liver cancer/reported COPD/diabetes mellitus Complicates care, management, recovery and prognosis. Code Visit Inpatient E&M: 16866 Subs Hosp L2
[2018-05-26 08:36] VITALS: O2SAT 86; O2SAT 91
--- NOTE | 2018-05-26 08:37 | DS.PCM_ITS ---
Discharge Date and Diagnosis - Problem List Patient Problems: Active and Suspected Problems Metabolic encephalopathy (Acute) Haemophilus influenzae pneumonia (Acute) Pneumonia due to methicillin resistant Staphylococcus aureus (MRSA) (Acute) Septic shock (Acute) Date of Admission: 05/22/18 Date of Discharge: 05/26/18 - Primary Discharge Diagnosis Active and Suspected Problems Metabolic encephalopathy (Acute) Haemophilus influenzae pneumonia (Acute) Pneumonia due to methicillin resistant Staphylococcus aureus (MRSA) (Acute) Septic shock (Acute) 1. Acute hypoxic and hypercapnic respiratory failure * improved and now extubated * 2/2 PNA, COPD ex +/- bronchiectasis * wean oxygen as tolerated * pulm toilet 2. H. flu & MRSA pneumonia * improving * changed to doxycycline and augmentin by [facility] 3. AECOPD: * improving * continue BDs and IV steroids * DC with prednisone taper * follow up with pulmonology as outpt 4. Septic shock * POA * resolved * 2/2 pneumonia * received IVF 3occ/kg 5. Metabolic encephalopathy * resolved * likely 2/2 CO2 narcosis * ammonia slightly elevated, but doubt a significant contributing factore--discontinue lactulose * likely also complicated by narcotics that he takes chronically: resume as need oxycodone, but discontinue scheduled MS contin 6. Coagulopathy * likely due to Xarelto + septic shock * monitor - Secondary Discharge Diagnosis Chronic Problems Nicotine dependence (Chronic) Metastatic adenocarcinoma to liver (Chronic) Type II diabetes mellitus (Chronic) Hypertension (Chronic) COPD (chronic obstructive pulmonary disease) (Chronic) Reported FEV1 40% Hospital Course and Treatment Imaging Results: Clinical Impression(s) from Imaging Studies Chest X-Ray 05/22/18 10:36 IMPRESSION: Right lower lobe consolidation. Infiltration in the left lower lobe with blunting of both costophrenic angles. Electronically Signed: Nelson Fournier, at 12:45 EDT , Service support , Brain CT 05/22/18 10:53 IMPRESSION: Chronic involutional changes of the brain. Electronically Signed: Nelson Fournier, at 13:00 EDT , Service support , Selvin Wells MD: pulmonology Operations: None Procedures: Intubation Summary of Care Provided: The patient is a 67 year old M with acute respiratory failure secondary to acute exacerbation of COPD, MRSA pneumonia and off list influenza pneumonia. Patient was intubated and subsequent extubated and is done well. Patient is on oxygen at home at 3 L. Patient last increase his oxygen to 4 L with activity but does have oxygen at home. Otherwise patient is doing well and will be discharged. Patient did have some confusion but it is likely more metabolic than toxic. Patient was having CO2 narcosis which is likely etiology of his encephalopathy. His narcotics were held and patient did well did not have any withdrawal symptoms the patient can resume his oxycodone as needed but informed to hold his MS Contin. [] Patient Problems: Active and Suspected Problems Metabolic encephalopathy (Acute) Haemophilus influenzae pneumonia (Acute) Pneumonia due to methicillin resistant Staphylococcus aureus (MRSA) (Acute) Septic shock (Acute) - Physical Exam General: Alert, No apparent distress HEENT: Atraumatic, Normocephalic Oral: Moist Mucosa, No Gingival or Mucosal Lesions/ Ulcerations Neck: No Nodes, Thyroid Normal Size and Texture Lungs: Clear to auscultation, Diminished Cardiovascular: Regular rate, Regular Rhythm, Normal S1, Normal S2, No murmurs Abdomen: Bowel Sounds Present, Soft, Non Tender, Non-Distended, No Hepato- splenomegaly Extremities: No edema, No Calf Tenderness Vital Signs Temp Pulse Resp BP Pulse Ox 35.7 C L 63 18 145/73 H 96 05/26/18 08:12 05/26/18 08:12 05/26/18 08:12 05/26/18 08:12 05/26/18 08:12 Oxygen Flow Rate (L/min) 3 Oxygen Delivery Method Nasal Cannula Weight: 69.1 kg Body Mass Index (BMI) 22.1 Intake and Output for Last 24 Hours 05/24/18 05/25/18 05/26/18 23:59 23:59 23:59 Intake Total 1251 / 1251 1040 / 1040 340 / 340 Output Total 1225 / 1225 1225 / 1225 400 / 400 Balance / -185 / -185 -60 / -60 Microbiology Past 72 Hours 05/22/18 11:30 Gram Stain - Final Transtracheal Aspirate Respiratory Culture - Final Haemophilus influenzae Meth. resistant Staph. aureus 05/22/18 11:10 Blood Culture - Preliminary Blood Culture (Wb) - Left Forearm No growth in 48 hours. 05/22/18 11:20 Blood Culture - Preliminary Blood Culture (Wb) - Right Hand No growth in 48 hours. 05/22/18 11:20 Urine Culture - Final Urine Catheter - Singer Culture exhibits no growth. POC Glucose 05/25/18 05/25/18 17:59 12:03 POC Glucose 131 H 134 H Discharge Diet: 1800 Calorie Control Diet Discharge Activity: Return to Normal Activity Additional Activity Instructions:: increase oxygen from 3 liters at rest to 4 liters with activity Call your doctor if your incision/area has: Continuous Slow Oozing Call your doctor if you observe: Fever of 101 or Higher, Shortness of breath Home Medications: Medications to take at Discharge Albuterol IH (ProAir) [Proair Hfa] 2 puff INHALATION Q4H PRN PRN 08/31/15 Ipratropium/Albuterol Sulfate [Duoneb] 3 ml INHALATION Q6HWA.RT 08/31/15 Oxycodone [Oxyir] 10 mg PO Q6H PRN PRN 08/31/15 Diltiazem CD [Cardizem CD] 120 mg PO DAILY #30 capsule 09/04/15 Glimepiride [Amaryl] 2 mg PO DAILY #30 tablet 09/04/15 Furosemide [Lasix] 20 mg PO DAILY PRN PRN 12/01/17 Losartan Potassium 25 mg PO DAILY 12/01/17 Metoprolol Tartrate [Lopressor (beta elen)] 25 mg PO BID 12/01/17 Rivaroxaban [Xarelto] 20 mg PO DAILY 12/01/17 Guaifenesin [Mucinex] 600 mg PO BID 05/22/18 Mirtazapine 30 mg PO QHS 05/22/18 Acetaminophen [Tylenol Tablet] 650 mg PO Q6H PRN PRN tablet 05/26/18 Amox/Clavulanate Tablet [Augmentin Tablet] 875 mg PO BID #10 tablet 05/26/18 Doxycycline 100 mg PO BID #10 capsule 05/26/18 Prednisone 10 mg PO DAILY #30 tab.ds.pk 05/26/18 Following Prescrptions Were Given to Patient: Prednisone 10 mg PO DAILY #30 tab.ds.pk Amox/Clavulanate Tablet [Augmentin Tablet] 875 mg PO BID #10 tablet Doxycycline 100 mg PO BID #10 capsule Primary Care Physician: Humberto Ware MD [Primary Care Provider] - Within 2 Weeks Please Follow Up With: [facility] When: 2-4 weeks Disposition: Home Minutes spent on discharge:: 32 Patient Condition:: Fair Medical Necessity - Tobacco Use Smoking Status: Current every day smoker Tobacco Use: Cigarettes Meaningful Use Info Meaningful Use Diagnoses (Choose all that apply): None applicable Code Visit Inpatient E&M: 25172 Disch Hosp
--- NOTE | 2018-05-26 08:39 | NURSING ---
Walked in [place] with mask. Sp02 88% on 3L o2 while walking. This nurse increased oxygen to 4L NC and spo2 was maintained between 91-92% on 4L NC while walking in [place].
[2018-05-26 10:17] VITALS: PULSE 63
[2018-05-26] MEDS: Metoprolol Tartrate 25 MG Tablet PO (10:17)
[2018-05-26] MEDS: guaiFENesin 600 MG Tablet PO (10:17)
[2018-05-26] MEDS: Amox/Clavulanate 875 MG Tablet PO (10:17)
[2018-05-26] MEDS: Doxycycline 100 MG CAPSULE PO (10:17)
[2018-05-26] MEDS: dilTIAZem CD 120 MG Capsule PO (10:18)
[2018-05-26] MEDS: Losartan Potassium 25 MG Tablet PO (10:29)
--- NOTE | 2018-05-28 15:07 | CASEMGMT ---
EVANGELINA RAY Discharge Follow-Up Phone Call. Carol: 13 Strata: 4 Discharge Date: 05/26/18 Adm Dx: Resp failure, septic shock Call to pt to inquire about how he has been doing since being discharged from the hospital. Pt states, I'm doing pretty well. 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 Pt's states she was able to make appts. Pt denies having any questions at this time. EVANGELINA RAY thanked pt for choosing [facility]. Kirby RICHARDSON RN, CM
== END 2018-05-26 10:49 | disposition home or self-care (01) | DRG 871 ==
LOC: ED 11:50 → ICU 13:50 → MS2 05-24 10:07
PROVIDERS: Internal Medicine Critical Care Medicine; Admitting Provider Internal Medicine; Emergency Provider Emergency Medicine; Family Provider Family Medicine; PCP Family Medicine; Referring Provider Internal Medicine
DX: A41.9 Sepsis, unspecified organism (principal); J14 Pneumonia due to Hemophilus influenzae; J15.212 Pneumonia due to Methicillin resistant Staphylococcus aureus; R65.21 Severe sepsis with septic shock; G93.41 Metabolic encephalopathy; J96.02 Acute respiratory failure with hypercapnia; J44.1 Chronic obstructive pulmonary disease with (acute) exacerbation; C78.7 Secondary malignant neoplasm of liver and intrahepatic bile duct; E11.9 Type 2 diabetes mellitus without complications; F17.210 Nicotine dependence, cigarettes, uncomplicated; Z86.14 Personal history of Methicillin resistant Staphylococcus aureus infection; R68.0 Hypothermia, not associated with low environmental temperature; Z79.01 Long term (current) use of anticoagulants; Z79.84 Long term (current) use of oral hypoglycemic drugs; C80.1 Malignant (primary) neoplasm, unspecified
CPT/HCPCS: 31500; 31720; 36415; 36600; 51702; 70450; 71045; 80048; 80053; 80202; 81001; 82140; 82803; 82962; 83605; 84484; 85025; 85610; 85730; 87040; 87070; 87077; 87086; 87186; 87205; 87641; 93005; 94002; 94003; 94640; 94660; 94667; 94668; 95831; 97162; 97165; 97530; 97802; 99251; 99285; 99406; J7030; A4216; G0463; J2405

== ENCOUNTER 2018-06-08 06:05 | Observation (INO) | payer MEDICARE, SELFPAY ==
[2018-05-22 14:52] VITALS: BMI 22.1
[2018-06-08] VITALS (17 sets, daily range): BP systolic 120–139; BP diastolic 51–70; PULSE 61–114; RESP 16–22; TEMP 36.7–37.3; O2SAT 94–99; BMI 19.1; BMI 19.2
--- NOTE | 2018-06-08 06:23 | RAD_ITS ---
STUDY: X-RAY CHEST REASON FOR EXAM: Male, 67 years old. Shortness of breath, dyspnea, COPD TECHNIQUE: Single AP portable view of the chest. COMPARISON: May 22, 2018. 09/01/2015 FINDINGS: Interval removal of endotracheal tube and enteric tube. There is hyperinflation of the lungs consistent with chronic obstructive lung disease (COPD). There is pulmonary fibrosis, chronic interstitial lung disease, and near complete resolution of opacification in the right base. There is no demonstrated pleural abnormality. Normal size heart. Normal mediastinum and carla. Normal visualized pulmonary arteries. Normal x-ray visualized aortic arch and descending thoracic aorta. There is demineralization of the osseous structures. Normal visualized ribs, clavicles, and shoulders. There is no demonstrated abnormality of the visualized soft tissue structures of the upper abdomen. RAD/Chest 1 View (Portable) IMPRESSION: Chronic interstitial lung disease, pulmonary fibrosis, COPD. Near-complete resolution of right basilar opacification since most recent examination. Electronically Signed: Mariana Granda MD at 6:58 EDT , Service support ,
--- NOTE | 2018-06-08 06:23 | EKG12_ITS ---
Test Reason : DIARHEA Blood Pressure : / mmHG Vent. Rate : 112 BPM Atrial Rate : 112 BPM P-R Int : 130 ms QRS Dur : 082 ms QT Int : 306 ms P-R-T Axes : 077 061 077 degrees QTc Int : 417 ms Sinus tachycardia Otherwise normal ECG Confirmed by JOSELINE STEELE, MARTA ([id number]), editor trade journal [employer] [id number]) on 06/12/2018 1:35:36 PM Referred By: LEENA Confirmed By:MARTA TREVIZO MD
[2018-06-08 07:07] LABS: Absolute Lymphocyte Count 0.44 X10^3/ul (0.83-4.51); Absolute Neutrophil Count 9.1 X10^3/uL (2.0-7.7); Eosinophil# 0.02 X10^3/uL; Eosinophils% 0.2 % (0-5); Hematocrit 39.5 % (40-54); Hemoglobin 11.9 g/dl (13.0-16.5); Lymphocyte # 0.44 X10^3/ul (4.0); Lymphocyte % 4.1 % (19-41); Mean Corp Hgb Conc 30.1 g/gl (32-36); Mean Corpuscular Hgb 25.5 pg (27.0-32.0); Mean Corpuscular Volume 84.6 fL (80-94); Mean Platelet Vol. 8.9 fl (6.2-12.0); Monocyte# 1.02 X10^3/uL; Monocyte% 9.6 % (0-10); Neutrophil # 9.13 X10^3/uL (2.7-7.7); Platelet Count 86 K/mm3 (150-450); RBC Distribution Width CV 16.4 % (11.6-14.6); RBC Distribution Width SD 50.3 fl (35.1-43.9); Red Blood Count 4.67 M/mm3 (4.6-6.2); White Blood Count 10.6 K/mm3 (4.4-11.0)
[2018-06-08 07:08] LABS: Differential Indicated SCAN CRITERIA MET; POSITIVE COUNT NO; POSITIVE DIFFERENTIAL YES; POSITIVE MORPHOLOGY NO
[2018-06-08 07:26] LABS: AST(SGOT) 84 U/L (15-37); Alanine Aminotransfer ALT/SGPT 76 U/L (16-61); Albumin, Serum 2.5 g/dL (3.2-5.0); Alkaline Phosphatase 148 U/L (45-117); Anion Gap 3 (5-15); BUN 24 mg/dL (7-18); BUN/Creat Ratio 28.8 RATIO (10-20); Bilirubin, Direct 0.15 mg/dL (0.00-0.30); Chloride 99 mmol/L (98-107); Creatinine, Serum 0.83 mg/dL (0.70-1.30); EST Glomerular Filtration Rate 97 mL/min (>60); Est Glom Filt Rate - Afr Amer 118 mL/min (>60); Estimated Creatinine Clearance 74.22 ml/min; Globulin 3.8 g/dL (2.2-4.2); Glucose 66 mg/dL (74-106); Potassium 5.8 mmol/L (3.5-5.1); Protein, Total 6.3 g/dL (6.4-8.2); Sodium Level 138 mmol/L (136-145)
[2018-06-08] MEDS: 0.9% Normal Saline 1,000 ML 150 ML IV ×2 (07:44→11:37)
[2018-06-08 07:56] LABS: Lactic Acid 1.3 mmol/L (0.4-2.0)
[2018-06-08 08:22] LABS: International Normalized Ratio 1.2; Partial Thromboplast Time 24.7 Seconds (24.1-36.2)
--- NOTE | 2018-06-08 08:37 | ED.DCSUM_ITS ---
- ER Visit Summary Date of Service: 06/08/18 Chief Complaint: Diarrhea, weakness History of Present Illness: The patient is a 67 M who was admitted May 22 to the for septic shock and respiratory failure secondary to MRSA and H. influenzae pneumonia. Patient completed his antibiotics 1 week ago. He is complaining of diarrhea over the past 2 to 3 days. He denies any obvious blood in the stool. He had mild intermittent abdominal pain. His temperature was 100.0 this morning. He is complaining of generalized weakness. Physical Examination: Vital signs significant for heart rate of 114, otherwise unremarkable. He is afebrile at this time. He is on 4 L nasal cannula which he was discharged from the hospital with. Patient sitting upright in bed no acute distress. Heart is tachycardic and regular. Lungs sounds with mild wheezes. Abdomen is soft with no focal tenderness. Hypoactive bowel sounds noted. Skin examination was multiple areas of ecchymosis in various stage of healing. Test Results: EKG is sinus tach at 112 with no sign of acute ischemia. CBC was normal white count with 86% neutrophils. Hemoglobin is 11.9. Platelet count is 86,000. Previous platelet count was 138,000 on May 24. Chemistry studies reveal potassium of 5.8 with moderate hemolysis. Bicarb is 36. Glucose is 66. LFTs significant for total bili of 1.2, alk phos 148, ALT 76, AST 84. Lactate is 1.3. Portable chest x-ray shows chronic interstitial lung disease, fibrosis, and COPD. There is near complete resolution of the right basilar opacification since the prior study. Emergency Department Course and Treatment: Patient has been given IV fluids. On repeat evaluation he is resting comfortably. He has rales noted to the right lung base. Abdomen remains soft and nontender. Patient did have a small amount of diarrhea here, but urinated at the same time and the sample was not able to be submitted for testing. At this time patient remains tachycardic in week. I will speak with hospitalist regarding admission for hydration and stool studies. Treatment Plan: [] Disposition: Admit Impression: 1. Diarrhea 2. Generalized weakness 3. Thrombocytopenia This note was generated with [employer] software. It may contain incorrect words, spelling, and punctuation that were not noted in review of the chart prior to signing ED Disposition - Plan for ED Patient: Referrals: Humberto Ware MD [Primary Care Provider] -
--- NOTE | 2018-06-08 08:49 | NURSING ---
DR TRAVIS FOR DR STERN
--- NOTE | 2018-06-08 09:06 | HP.PCM_ITS ---
Problem List (1) Debility Status: Acute (2) Metastatic adenocarcinoma to liver Status: Chronic (3) Type II diabetes mellitus Status: Chronic Qualifiers: Diabetes mellitus laborer marine terminal insulin use: without laborer marine terminal use Diabetes mellitus complication status: with unspecified complications Qualified Code(s): E11.8 - Type 2 diabetes mellitus with unspecified complications (4) Hypertension Status: Chronic Qualifiers: Hypertension type: essential hypertension Qualified Code(s): I10 - Essential (primary) hypertension (5) COPD (chronic obstructive pulmonary disease) Status: Chronic Qualifiers: COPD type: COPD with acute exacerbation Qualified Code(s): J44.1 - Chronic obstructive pulmonary disease with (acute) exacerbation Comment: Reported FEV1 40% History of Present Illness Date of Admission: 06/08/18 Chief Complaint: Diarrhea The patient is a 67 year old M with past medical history of prostatic liver CA, being followed by palliative care in the outpatient who was recently discharged on 05/26/18 with acute hypoxic hypercapnic respiratory failure secondary to pneumonia, COPD. His management also included H influenza and MRSA pneumonia. Patient was discharged home with 5-day course of antibiotics which he has completed. He started complaining of right-sided pain and the next day started having profuse diarrhea about 6 times, nonbloody, not associated with abdominal cramps. Diarrhea medium extra week and his got concerned, and decided to bring him to the ED. In the ED, his temperature was 98.2F, heart rate 114, respiratory 22, blood pressure 121/58. CBC the showed WBC count of 10.6, hemoglobin 11.9, platelet count of 86. BMP shows sodium 138, potassium 5.8, repeat is 4.3, chloride 99, bicarbonate is 36, BUN 24, creatinine 0.83, lactic acid 1.3, total bilirubin is 1.2, direct 0.15, AST is 84, ALT 76, ALP is 148, albumin is 2.5. Admitting chest x-ray shows future lung disease, permanent fibrosis, COPD, near complete resolution of right basilar opacification. Past Medical History Past Medical History (Chronic Problems): Chronic Problems Nicotine dependence (Chronic) Metastatic adenocarcinoma to liver (Chronic) Type II diabetes mellitus (Chronic) Hypertension (Chronic) COPD (chronic obstructive pulmonary disease) (Chronic) Reported FEV1 40% Allergies tramadol Allergy (Verified 06/08/18 06:06) Rash Home Medications: Ambulatory Orders Medication Instructions Recorded Albuterol IH (ProAir) [Proair Hfa] 2 puff INHALATION Q4H PRN PRN 08/31/15 Ipratropium/Albuterol Sulfate 3 ml INHALATION Q6HWA.RT 08/31/15 [Duoneb] Oxycodone [Oxyir] 10 mg PO Q4H PRN PRN 08/31/15 Diltiazem CD [Cardizem CD] 120 mg PO DAILY #30 capsule 09/04/15 Glimepiride [Amaryl] 2 mg PO DAILY #30 tablet 09/04/15 Furosemide [Lasix] 20 mg PO DAILY PRN PRN 12/01/17 Losartan Potassium 25 mg PO DAILY 12/01/17 Metoprolol Tartrate [Lopressor 25 mg PO BID 12/01/17 (beta elen)] Rivaroxaban [Xarelto] 20 mg PO DAILY 12/01/17 Guaifenesin [Mucinex] 600 mg PO BID 05/22/18 Mirtazapine 30 mg PO QHS 05/22/18 Acetaminophen [Tylenol Tablet] 650 mg PO Q6H PRN PRN tablet 05/26/18 Doxycycline 100 mg PO BID #10 capsule 05/26/18 Prednisone 10 mg PO DAILY #30 tab.ds.pk 05/26/18 Surgical History: - - s/p chemoembolisation Psychiatric History: No pertinent psych hx Lives: Spouse/ Significant Other Smoking Status: Current every day smoker Tobacco Use: Cigarettes Alcohol: None Drugs: None - *Family History Maternal History Items: No pertinent history Paternal History Items: No pertinent history Review of Systems Constitutional: Reports: Anorexia, Chills, Fever, Weakness. Denies: Weight Change Eyes: Denies: Blurred vision, Conjunctivae Inflammation, Pain, Redness HEENT: Denies: Difficulty Hearing, Difficulty Swallowing, Head Aches, Hearing Changes, Sinus Congestion, Sinus Drainage Cardiovascular: Denies: Chest Pain, Palpitations Respiratory: Denies: Cough, Hemoptysis, Shortness of breath at rest, Shortness of breath upon exertion, Sputum production Gastrointestinal: Denies: Abdominal Pain, Constipation, Hematemesis, Nausea, Vomiting Genitourinary: Denies: Dysuria, Frequency Musculoskeletal: Denies: Joint Pain, Joint stiffness, Joint swelling, Joint Tenderness Skin: Denies: Dryness, Pruritis, Rash, Wounds Neurological: Denies: Difficulty swallowing, Focal weakness, Numbness, Tingling Psychiatric: Denies: Anxiety, Depression, Homicidal Ideations, Suicidal Ideations Hematologic/ Lymphatic: Denies: Easy Bruising, Easy Bleeding VTE Information - Inpt Only VTE Present on Admission: No VTE Pharm Prophylaxis ordered?: Yes Patient Problems: Active and Suspected Problems Debility (Acute) - Physical Exam General: Alert, Oriented x3, Cooperative, No apparent distress HEENT: Atraumatic, PERRLA, EOMI, Normocephalic Oral: Moist Mucosa Neck: Supple Lungs: Normal air movement, Diminished Cardiovascular: Regular rate, Regular Rhythm, Normal S1, Normal S2, No murmurs Abdomen: Bowel Sounds Present, Soft, Non Tender, Non-Distended, No Hepato- splenomegaly Extremities: Edema - bilateral pitting, +2-+3, area of ecchymosis in mid anterior leg Skin: No rashes, No breakdown Musculoskeletal: No Tenderness to Palpation of Joints or Extremities Lymphatic: No Cervical, Supraclavicular, or Inguinal Adenopathy Neurological: Cranial nerves II-XII grossly intact, Neuro grossly intact Psych/Mental Status: Normal Affect, Appropriate Vital Signs Temp Pulse Resp BP Pulse Ox 98.4 F 104 H 18 139/59 H 99 06/08/18 08:00 06/08/18 08:55 06/08/18 08:55 06/08/18 08:55 06/08/18 08:55 Oxygen Flow Rate (L/min) 4 Oxygen Delivery Method Nasal Cannula Weight: 61.6 kg Body Mass Index (BMI) 20.0 Laboratory Tests Past 24 Hrs 06/08/18 06/08/18 06/08/18 06:55 06:55 07:20 WBC 10.6 RBC 4.67 Hgb 11.9 L Hct 39.5 L MCV 84.6 MCH 25.5 L MCHC 30.1 L RDW 16.4 H RDW Differential 50.3 H Plt Count 86 L MPV 8.9 Immature Gran % (Auto) 0.100 Neut % (Auto) 86.0 H Lymph % (Auto) 4.1 L [place] % (Auto) 9.6 Eos % (Auto) 0.2 Baso % (Auto) 0.0 Absolute Neuts (auto) 9.1 H Absolute Lymphs (auto) 0.44 L Total Counted Not Reportable Differential Comment COMMENT PT 15.0 H INR 1.2 APTT 24.7 Sodium 138 Potassium 5.8 H Chloride 99 Carbon Dioxide 36.0 H Anion Gap 3 L BUN 24 H Creatinine 0.83 Estim Creat Clear Calc 74.22 Est GFR (MDRD) Af Amer 118 Est GFR (MDRD) Non-Af 97 BUN/Creatinine Ratio 28.8 H Glucose 66 L Lactic Acid Calcium 9.0 Total Bilirubin 1.20 H Direct Bilirubin 0.15 AST 84 H ALT 76 H Alkaline Phosphatase 148 H Total Protein 6.3 L Albumin 2.5 L Globulin 3.8 06/08/18 07:20 WBC RBC Hgb Hct MCV MCH MCHC RDW RDW Differential Plt Count MPV Immature Gran % (Auto) Neut % (Auto) Lymph % (Auto) [place] % (Auto) Eos % (Auto) Baso % (Auto) Absolute Neuts (auto) Absolute Lymphs (auto) Total Counted Differential Comment PT INR APTT Sodium Potassium Chloride Carbon Dioxide Anion Gap BUN Creatinine Estim Creat Clear Calc Est GFR (MDRD) Af Amer Est GFR (MDRD) Non-Af BUN/Creatinine Ratio Glucose Lactic Acid 1.3 Calcium Total Bilirubin Direct Bilirubin AST ALT Alkaline Phosphatase Total Protein Albumin Globulin Assessment/Plan All Active Problems Debility (Acute) Metabolic encephalopathy (Acute) Haemophilus influenzae pneumonia (Acute) Pneumonia due to methicillin resistant Staphylococcus aureus (MRSA) (Acute) Septic shock (Acute) SVT (supraventricular tachycardia) (Acute) Atrial fibrillation (Acute) Acute respiratory failure with hypoxia (Acute) 67 year old M with past medical history of metastatic liver CA, being followed by palliative care in the outpatient who was recently discharged on 05/26/18 with acute hypoxic hypercapnic respiratory failure secondary to pneumonia, COPD. His management also included H influenza and MRSA pneumonia. Patient was discharged home with 5-day course of antibiotics which he has completed 1. Acute diarrhea, recent use of antibiotics, need to rule out C. difficile, Plan: Admit to MedSurg floor, observation, C. difficile, stool for enteric panel, strict stool charting, Strict I's and O's, gentle IV fluids 2. Debility, related to current diarrhea versus ongoing metastatic liver CA, patient is in palliative care/hospice, 3. Chronic respiratory failure, on 4 L of oxygen at home, History of COPD, pulmonary fibrosis, CLAUDIA Patient is noncompliant with use of BiPAP at night ABG this admission showed hypercapnic respiratory failure Plan: Continue on home oxygen at 2 L, continue BiPAP at night 4. Hypertension, on losartan, metoprolol, Cardizem 5. Type 2 DM, on Amaryl, continue with insulin sliding scale with Accu-Cheks 6. Metastatic hepatocellular CA, discussed with oncology, patient should be a candidate for hospice, no chemotherapy options recommended. Patient will be discharged to hospice at discharge. 7. DVT PPx - On Xarelto Code Visit OBSV E&M: 22613 Initial observation care L3
[2018-06-08 11:01] LABS: Allen Test POS; Base Excess 11 mmol/L (-2 to +2); Bicarbonate 37.4 mmol/L (22-26); Blood Gas Specimen Type ART; O2 Delivery Device Nasal Can; PO2 95 mmHG (75-100); SITE L Radial; SO2 96 % (95-99); Time Given 1052; Total Carbon Dioxide 40 mmol/L; pH 7.32 (7.35-7.45)
[2018-06-08] MEDS: Ipratropium/Albuterol Sulfate 3 ML AMPUL.NEB INHALATION ×3 (11:09→19:40)
--- NOTE | 2018-06-08 11:12 | CPS ---
Critical value called to Dr. Mcghee 06/08/18 1106. Gal Sanchez, MESSAGE BROKER DEVELOPER, PAINT ROLLER ASSEMBLER
[2018-06-08] MEDS: Losartan Potassium 25 MG Tablet PO (11:38)
[2018-06-08] MEDS: guaiFENesin 600 MG Tablet PO ×2 (11:38→22:33)
[2018-06-08] MEDS: Metoprolol Tartrate 25 MG Tablet PO ×2 (11:38→22:34)
[2018-06-08] MEDS: dilTIAZem CD 120 MG Capsule PO (11:38)
[2018-06-08] MEDS: Glimepiride 2 MG Tablet PO (11:38)
[2018-06-08 12:26] LABS: Bedside Glucose 202 mg/dL (70-110)
--- NOTE | 2018-06-08 12:38 | CASEMGMT ---
RN CM Assessment Presentation: metabolic encephalopathy, Pneumonia, sepsis Intro role of CM and purpose of RN CM assessment to patient's . Pt is sleeping soundly and sister in room states he was up most of night. Demographics, PCP and Pharmacy verified. Call to and per report she has been analytical scientist for patient. PCP: Dr. Ware Preferred Pharmacy: [email or web address] Insurance: [facility] Prescription Benefit: yes LNOK: [facility], Living Arrangements: Lives in two story home but has first floor set up. Pt states he needs assistance with most daily care needs. Transportation: [employer] assists with driving. DME: walker, cane, wheelchair, shower chair, rollator, oxygen through [employer]: concentrator, portable tanks, nebulizer. states he may need Cpap and will f/u with Dr. Wells on discharge. HHC: none prior but is requesting Home Health on dc. [facility] is preference after choices were given. Patient DC goals: Home SW: may benefit from Palliative Care Referral. Lenin updated. DC PLAN: Home on discharge with [facility]. PT/OT evaluations pending. If needed on dc, can add to Home Health order. Juvenal RICHARDSON RN ACM
--- NOTE | 2018-06-08 13:29 | CASEMGMT ---
Addendum entered by Marley Christianson 06/08/18 14:41: Physician requesting Palliative Care RN number. SW placed a call to [facility]. SW spoke with [facility], per [facility] pt is not linked with their Palliative Care services but states they do provide services to [place]. SW reviewed previous notes, pt was linked up with Palliative Care at [facility]. SW called [facility], was transferred to [facility] who informed this worker to call [facility]. SW attempted to call [facility], spoke with bilingual secretary who states she didn't think they provide Palliative Care Services. SW called [facility], was put on hold for 17 minutes. EVANGELINA Bran called pt's who was able to provide number for Palliative Care. Physician updated. EVANGELINA Bran states pt did have Palliative through [facility] but hasn't had an appointment in a while. SW will meet with pt tomorrow to discuss [facility] Palliative Care services in the event pt is interested in arranging Palliative Care Services through [facility]. Original Note: Social Work Note SW received referral for information on Palliative Care. Per notes, pt soundly sleeping, was up most of the night. SW will meet with pt tomorrow in regards to Palliative Care. Marley Christianson INVESTIGATOR FRAUD, ARMORED CAR GUARD
[2018-06-08 13:51] LABS: Potassium 4.3 mmol/L (3.5-5.1)
--- NOTE | 2018-06-08 14:39 | CASEMGMT ---
RN CM Note: Call to to verify Pt was active with Palliative Care @ [facility] , with Dr. Hanks. This physician is no longer with [facility], but per state game warden, when pt calls for appt, they will assign another physician. Palliative Care Team nurse #[phone] Chong via [employer]. Juvenal LOPEZN RN ACM
[2018-06-08] MEDS: oxyCODONE 5 MG Tablet 10 MG PO ×2 (15:33→19:34)
[2018-06-08] MEDS: Rivaroxaban 20 MG Tablet PO (16:22)
[2018-06-08 16:35] LABS: Bedside Glucose 118 mg/dL (70-110)
[2018-06-08] MEDS: Acetaminophen 325 MG Tablet 650 MG PO (18:13)
[2018-06-08] MEDS: 0.9% Normal Saline 1,000 ML 100 ML IV (19:35)
[2018-06-08] MEDS: Mirtazapine 15 MG Tablet 30 MG PO (22:34)
--- NOTE | 2018-06-08 22:45 | NURSING ---
PATIENT BLOOD GLUCOSE 42. GIVEN ORANGE JUICE, COOKIES, PEANUT BUTTER AND MILK. STAT GLUCOSE ORDERED.
--- NOTE | 2018-06-08 23:03 | NURSING ---
PATIENT BLOOD GLUCOSE RECHECK 75
[2018-06-08 23:06] LABS: Bedside Glucose 42 mg/dL (70-110)
[2018-06-08 23:06] LABS: Bedside Glucose 75 mg/dL (70-110)
[2018-06-08 23:12] LABS: Glucose 69 mg/dL (74-106)
[2018-06-09] VITALS (8 sets, daily range): BP systolic 107–148; BP diastolic 55–74; PULSE 65–102; RESP 18–20; TEMP 36.8–37.3; O2SAT 96–98
[2018-06-09] MEDS: oxyCODONE 5 MG Tablet 10 MG PO ×4 (00:12→11:29)
[2018-06-09] MEDS: Ipratropium/Albuterol Sulfate 3 ML AMPUL.NEB INHALATION ×3 (03:00→11:05)
[2018-06-09] MEDS: 0.9% Normal Saline 1,000 ML 100 ML IV (04:05)
[2018-06-09] MEDS: Glimepiride 2 MG Tablet PO (08:39)
--- NOTE | 2018-06-09 08:56 | DCINST_ITS ---
- Discharge Diagnoses Current Active Problems: Current Active and Chronic Problems Debility (Acute) Reason(s) for Visit for Discharge Instructions: Diarrhea You will use the following diet at home:: Regular Your food should be the consistency of: Regular Your liquids should be the consistency of: Regular/Thin Discharge Activity: Return to Normal Activity Additional Instructions: Follow-up with Palliative care/Hospice team at home. Follow-up with primary care doctor within 1-2 weeks. Continue to use your oxygen. You are advised to quit smoking. Allergies/Adverse Reactions: Allergies tramadol Allergy (Verified 06/08/18 06:06) Rash Medications to take at Discharge Albuterol IH (ProAir) [Proair Hfa] 2 puff INHALATION Q4H PRN PRN 08/31/15 Ipratropium/Albuterol Sulfate [Duoneb] 3 ml INHALATION Q6HWA.RT 08/31/15 Oxycodone [Oxyir] 10 mg PO Q4H PRN PRN 08/31/15 Diltiazem CD [Cardizem CD] 120 mg PO DAILY #30 capsule 09/04/15 Glimepiride [Amaryl] 2 mg PO DAILY #30 tablet 09/04/15 Losartan Potassium 25 mg PO DAILY 12/01/17 Metoprolol Tartrate [Lopressor (beta elen)] 25 mg PO BID 12/01/17 Rivaroxaban [Xarelto] 20 mg PO DAILY 12/01/17 Guaifenesin [Mucinex] 600 mg PO BID 05/22/18 Mirtazapine 30 mg PO QHS 05/22/18 Acetaminophen [Tylenol Tablet] 650 mg PO Q6H PRN PRN tablet 05/26/18 Glimepiride [Amaryl] 1 mg PO DAILY #30 tablet 06/09/18 The following prescriptions were given: Glimepiride [Amaryl] 1 mg PO DAILY #30 tablet Primary Care Physician: Humberto Ware MD [Primary Care Provider] - Please follow up with your Primary Care Physician in: within 1-2 weeks Test Results: Test results from this visit will be discussed in further detail at your follow- up appointment, if applicable. Proposed Discharge Date: 06/09/18
--- NOTE | 2018-06-09 08:56 | PCM.DC.SUM ---
Discharge Date and Diagnosis - Problem List Patient Problems: Active and Suspected Problems Debility (Acute) Date of Admission: 06/08/18 Date of Discharge: 06/09/18 - Primary Discharge Diagnosis Active and Suspected Problems Debility (Acute) Acute gastroenteritis, C. difficile ruled out, likely viral versus antibiotic side effect - Secondary Discharge Diagnosis Chronic Problems Nicotine dependence (Chronic) Metastatic adenocarcinoma to liver (Chronic) Type II diabetes mellitus (Chronic) Hypertension (Chronic) COPD (chronic obstructive pulmonary disease) (Chronic) Reported FEV1 40% Hospital Course and Treatment Imaging Results: Clinical Impression(s) from Imaging Studies Chest X-Ray 06/08/18 06:23 IMPRESSION: Chronic interstitial lung disease, pulmonary fibrosis, COPD. Near-complete resolution of right basilar opacification since most recent examination. Electronically Signed: Mariana Granda MD at 6:58 EDT , Service support , None Operations: None Procedures: None Summary of Care Provided: T67 year old M with past medical history of metastatic liver CA, being followed by palliative care in the outpatient who was recently discharged on 05/26/18 with acute hypoxic hypercapnic respiratory failure secondary to pneumonia, COPD. His management also included H influenza and MRSA pneumonia. Patient was discharged home with 5-day course of antibiotics which he has completed. He was admitted with acute diarrhea. C. difficile was ruled out. Stool for enteric panel was pending at time of discharge. Patient was started on IV fluids and his home medications continue. Discussed with oncology, Dr. Crawford, who recommended the patient to be evaluated for hospice. He says there was no further treatment plan for the patient upon reviewing records from the [facility]. [facility] prior to discharge. He was strongly advised to quit smoking was using oxygen. The day of discharge, his blood sugars were relatively low, his Amaryl was decreased to 1 mg p.o. daily. Patient Problems: Active and Suspected Problems Debility (Acute) Subjective: On the day of discharge, patient was seen and examined. His pain is controlled. No more diarrhea noted. C. difficile has been negative. No fevers or chills. Discussed previous recommendations from oncology, Dr. Crawford, who said that there was no further planned intervention for this patient and should be in hospice. This appeared to be new for the patient and the . [facility] consulted. Objective: Physical Exam General: Alert, Oriented x3, Cooperative, No apparent distress, liters of oxygen HEENT: Atraumatic, PERRLA, EOMI, Normocephalic Oral: Moist Mucosa Neck: Supple Lungs: Normal air movement, Diminished Cardiovascular: Regular rate, Regular Rhythm, Normal S1, Normal S2, No murmurs Abdomen: Bowel Sounds Present, Soft, Non Tender, Non-Distended, No Hepato-splenomegaly Extremities: Edema - bilateral pitting, +2-+3, area of ecchymosis in mid anterior leg Skin: No rashes, No breakdown Musculoskeletal: No Tenderness to Palpation of Joints or Extremities Lymphatic: No Cervical, Supraclavicular, or Inguinal Adenopathy Neurological: Cranial nerves II-XII grossly intact, Neuro grossly intact Psych/Mental Status: Normal Affect, Appropriate - Physical Exam Vital Signs Temp Pulse Resp BP Pulse Ox 99.1 F 83 18 107/55 L 96 06/09/18 04:21 06/09/18 06:48 06/09/18 06:48 06/09/18 04:21 06/09/18 06:48 Oxygen Flow Rate (L/min) 3 Oxygen Delivery Method Nasal Cannula Weight: 58.9 kg Body Mass Index (BMI) 19.1 Intake and Output for Last 24 Hours 06/07/18 06/08/18 06/09/18 23:59 23:59 23:59 Intake Total 1329 / 1329 2349 / 2349 Output Total 200 / 200 Balance 1129 / 1129 2349 / 2349 Microbiology Past 72 Hours 06/08/18 16:35 C. difficile DNA Amplification - Final Stool 06/08/18 16:35 Stool Occult Blood ([facility]) - Final Stool Occult Blood Positive 06/08/18 16:35 Stool Lactoferrin - Final Stool Laboratory Tests Past 24 Hrs 06/08/18 06/08/18 06/08/18 10:54 13:30 13:30 Specimen Type ART Sample Site L Radial pH 7.32 L Bicarbonate Actual 37.4 H POC Total CO2 40 Base Excess 11 H O2 Saturation 96 ABG pCO2 72.0 H* ABG pO2 95 Silver Test POS O2 Delivery Device Nasal Can Liter Flow 4.0 Blood Gas Notified Whom HOSP Blood Gas Notified Time 1052 Potassium 4.3 Glucose Heparin-induced Plt Ab Pending 06/08/18 22:54 Specimen Type Sample Site pH Bicarbonate Actual POC Total CO2 Base Excess O2 Saturation ABG pCO2 ABG pO2 Silver Test O2 Delivery Device Liter Flow Blood Gas Notified Whom Blood Gas Notified Time Potassium Glucose 69 L Heparin-induced Plt Ab POC Glucose 06/08/18 06/08/18 06/08/18 23:01 22:35 16:20 POC Glucose 75 42 L* 118 H 06/08/18 12:23 POC Glucose 202 H Discharge Diet: No Restrictions Discharge Activity: Return to Normal Activity Home Medications: Medications to take at Discharge Albuterol IH (ProAir) [Proair Hfa] 2 puff INHALATION Q4H PRN PRN 08/31/15 Ipratropium/Albuterol Sulfate [Duoneb] 3 ml INHALATION Q6HWA.RT 08/31/15 Oxycodone [Oxyir] 10 mg PO Q4H PRN PRN 08/31/15 Diltiazem CD [Cardizem CD] 120 mg PO DAILY #30 capsule 09/04/15 Glimepiride [Amaryl] 2 mg PO DAILY #30 tablet 09/04/15 Losartan Potassium 25 mg PO DAILY 12/01/17 Metoprolol Tartrate [Lopressor (beta elen)] 25 mg PO BID 12/01/17 Rivaroxaban [Xarelto] 20 mg PO DAILY 12/01/17 Guaifenesin [Mucinex] 600 mg PO BID 05/22/18 Mirtazapine 30 mg PO QHS 05/22/18 Acetaminophen [Tylenol Tablet] 650 mg PO Q6H PRN PRN tablet 05/26/18 Glimepiride [Amaryl] 1 mg PO DAILY #30 tablet 06/09/18 Following Prescrptions Were Given to Patient: Glimepiride [Amaryl] 1 mg PO DAILY #30 tablet Primary Care Physician: Humberto Ware MD [Primary Care Provider] - Please follow up with your Primary Care Physician in: within 1-2 weeks Disposition: Home with Hospice Minutes spent on discharge:: 65 Patient Condition:: Fair Medical Necessity - Tobacco Use Smoking Status: Current every day smoker Tobacco Use: Cigarettes Meaningful Use Info Meaningful Use Diagnoses (Choose all that apply): None applicable Code Visit OBSV E&M: 65186 Observation care discharge
[2018-06-09 09:17] LABS: Absolute Neutrophil Count 2.8 X10^3/uL (2.0-7.7); Differential Indicated SCAN CRITERIA MET; Eosinophil# 0.05 X10^3/uL; Eosinophils% 1.4 % (0-5); Hemoglobin 10.5 g/dl (13.0-16.5); Lymphocyte % 11.4 % (19-41); Mean Corpuscular Hgb 25.2 pg (27.0-32.0); Mean Corpuscular Volume 84.1 fL (80-94); Mean Platelet Vol. 9.1 fl (6.2-12.0); Monocyte# 0.27 X10^3/uL; Monocyte% 7.7 % (0-10); Neutrophil # 2.77 X10^3/uL (2.7-7.7); Neutrophil % 79.2 % (47-70); POSITIVE COUNT NO; POSITIVE DIFFERENTIAL YES; POSITIVE MORPHOLOGY NO; Platelet Count 70 K/mm3 (150-450); RBC Distribution Width CV 16.3 % (11.6-14.6); RBC Distribution Width SD 49.2 fl (35.1-43.9); Red Blood Count 4.16 M/mm3 (4.6-6.2); White Blood Count 3.5 K/mm3 (4.4-11.0)
[2018-06-09 09:42] LABS: Bedside Glucose 90 mg/dL (70-110)
[2018-06-09 09:42] LABS: Bedside Glucose 56 mg/dL (70-110)
[2018-06-09 09:42] LABS: Bedside Glucose 104 mg/dL (70-110)
[2018-06-09] MEDS: dilTIAZem CD 120 MG Capsule PO (09:47)
[2018-06-09] MEDS: Metoprolol Tartrate 25 MG Tablet PO (09:47)
[2018-06-09] MEDS: guaiFENesin 600 MG Tablet PO (09:47)
[2018-06-09] MEDS: Losartan Potassium 25 MG Tablet PO (09:47)
[2018-06-09 09:49] LABS: ALB/GLOB Ratio 0.6 RATIO (0.9-2.4); AST(SGOT) 55 U/L (15-37); Alanine Aminotransfer ALT/SGPT 54 U/L (16-61); Albumin, Serum 1.9 g/dL (3.2-5.0); Alkaline Phosphatase 124 U/L (45-117); Anion Gap 1 (5-15); BUN 12 mg/dL (7-18); BUN/Creat Ratio 23.7 RATIO (10-20); Calcium,Total 7.9 mg/dL (8.5-10.1); Chloride 107 mmol/L (98-107); Creatinine, Serum 0.51 mg/dL (0.70-1.30); EST Glomerular Filtration Rate 173 mL/min (>60); Est Glom Filt Rate - Afr Amer 209 mL/min (>60); Glucose 106 mg/dL (74-106); Potassium 3.8 mmol/L (3.5-5.1); Protein, Total 4.9 g/dL (6.4-8.2); Sodium Level 141 mmol/L (136-145)
--- NOTE | 2018-06-09 11:20 | CASEMGMT ---
Addendum entered by Marley Christianson 06/09/18 12:14: THOR spoke with Oscar from [facility], provided referral. Oscar states she will call pt's [facility] and be at [facility] to meet with pt and Trinity. SW faxed referral to [facility]. Original Note: Social Work Note SW met with pt, pt's [facility] present in room. SW educated pt and pt's [facility] on [facility]iative [facility]. Physician entered room and talked to Trinity about Hospice care for pt and that pt is appropriate for Hospice. Pt and Trinity is agreeable to [facility] referral. Per previous notes, pt was linked with [facility] in the past. THOR paged personnel consultant Hospice nurse, waiting for call back. RN states pt is ready to go home. Once personnel consultant nurse calls this worker, this worker will inform her to just follow up with pt in the home as pt is wanting to go home. THOR provided Trinity with oncologist pamphlet and [facility] pamphlet. THOR informed Trinity that this worker will have [facility] call her to arrange meeting time. Trinity states understanding. Plan: [facility] to call pt's [facility] to arrange meeting time to discuss Hospice services Marley Christianson [employer] WORKER HELPER, PRODUCTION TEAM MANAGER
--- NOTE | 2018-06-09 13:30 | NURSING ---
HOSPICE NURSE HERE TO SEE PT AND FAMILY. PT BEING DISCHARGE TO HOME WITH HOSPICE. DR TRAVIS NOTIFIED THAT PT BEING DISCHARGED HOME WITH HOSPICE.
--- NOTE | 2018-06-09 13:35 | CASEMGMT ---
Social Work Note Oscar from [facility] informed this worker that pt signed with Hospice and will be going home with Hospice. Physician updated. THOR faxed discharge paperwork to [facility]. Cierra, social secretary, placed a call to [facility], informed them that pt went home with Hospice. Marley Christianson [employer] MANAGER, BAGGING [employer]
[2018-06-11 12:54] LABS: Pathologist Review Reviewed
== END 2018-06-09 13:34 | disposition hospice, home (50) ==
LOC: ED 06:45 → MS3 06-09 02:02
PROVIDERS: Admitting Provider Internal Medicine; Emergency Provider Emergency Medicine; Family Provider Family Medicine; PCP Family Medicine; Visit Provider Internal Medicine
DX: R53.81 Other malaise (principal); K52.9 Noninfective gastroenteritis and colitis, unspecified; E11.9 Type 2 diabetes mellitus without complications; I10 Essential (primary) hypertension; J44.9 Chronic obstructive pulmonary disease, unspecified; C78.7 Secondary malignant neoplasm of liver and intrahepatic bile duct; C80.1 Malignant (primary) neoplasm, unspecified; Z79.899 Other long term (current) drug therapy; Z79.84 Long term (current) use of oral hypoglycemic drugs; Z79.01 Long term (current) use of anticoagulants; Z86.14 Personal history of Methicillin resistant Staphylococcus aureus infection; Z87.01 Personal history of pneumonia (recurrent); D69.6 Thrombocytopenia, unspecified; F17.210 Nicotine dependence, cigarettes, uncomplicated; Z99.81 Dependence on supplemental oxygen
CPT/HCPCS: 36415; 36600; 71045; 80048; 80053; 80076; 82274; 82803; 82947; 82962; 83605; 83630; 84132; 85025; 85610; 85730; 86022; 87040; 87177; 87209; 87493; 87506; 93005; 94640; 96360; 96361; 97802; 99218; 99285; J7030; J7040; A4216; G0378